=== PATIENT | male | born 1945 | race Hispanic/Latino ===

== ENCOUNTER → 2019-07-29 | Outpatient (CLI) | payer MEDICARE, OTHER ==
[~2019-07-29] MED LIST: ATORVASTATIN CA40 MG PO; DIOVAN80 MG PO; LEVOCETIRIZINE D5 MG PO; LEVOFLOXACIN250 MG PO; LOSARTAN-HCTZ1 EAC1 PO; METFORMIN HCL500 MG PO; METOPROLOL SUCC25 MG PO; METOPROLOL SUCC50 MG PO; NIFEDIPINE ER30 M1 PO; PANTOPRAZOLE SO40 MG PO; TRESIBA FL100 UNIT/1 SQ
== END ==
LOC: DX 12:02
PROVIDERS: ATTEND Internal Medicine
DX: Z01.818 Encounter for other preprocedural examination (principal); Z53.8 Procedure and treatment not carried out for other reasons

== ENCOUNTER 2019-08-03 05:00 | Inpatient (IN) | payer MEDICARE, OTHER ==
--- NOTE | 2019-07-29 14:57 | Diagnostic Imaging Report ---
EXAMINATION: CHEST 2 VIEWS INDICATION: Pre-operative COMPARISON: None FINDINGS: LINES/TUBES:None LUNGS:The lungs are well-inflated. No focal consolidation or pulmonary edema. PLEURA:No pleural effusion or pneumothorax. MEDIASTINUM:The cardiomediastinal silhouette appears normal in size and shape. BONES/SOFT TISSUES:No acute osseous injury. ABDOMEN:No free air under the diaphragm. IMPRESSION: No focal pneumonia or pulmonary edema. Signed by: King Drake MD on 07/29/2019 2:54 PM
[2019-07-29 15:00] LABS: BASOPHILS # (AUTO) 0.1 (0.0-0.1); EOSINOPHILS # (AUTO) 0.2 (0.0-0.4); EOSINOPHILS % 2.1 % (0.0-6.0); HEMATOCRIT 34.7 % (38.2-49.6); HEMOGLOBIN 10.5 g/dL (14.0-18.0); LYMPHOCYTES # (AUTO) 2.6 (1.0-3.2); LYMPHOCYTES % 33.9 % (18.0-39.1); MEAN CORPUSCULAR HEMOGLOBIN 26.7 pg (28-32); MEAN CORPUSCULAR HGB CONC 30.3 g/dL (31-35); MEAN CORPUSCULAR VOLUME 88.3 fL (81-99); MONOCYTES # (AUTO) 0.8 (0.2-0.8); NEUTROPHILS # (AUTO) 4.1 (2.1-6.9); NEUTROPHILS % 52.7 % (38.7-80.0); PLATELET COUNT 290 x10e3/uL (140-360); RED BLOOD COUNT 3.93 x10e6/uL (4.3-5.7); RED CELL DISTRIBUTION WIDTH 14.6 % (11.7-14.4)
[2019-07-29 16:08] LABS: ANION GAP 12.8 mmol/L (8-16); CREATININE, SERUM 1.88 mg/dL (0.72-1.25); POTASSIUM 4.8 mmol/L (3.5-5.1)
[~2019-08-03] VITALS: Ht 162.6 cm; Wt 82.6 kg
[~2019-08-03 05:00] MED LIST changes: -ATORVASTATIN CA40 MG PO; -LEVOCETIRIZINE D5 MG PO; -LEVOFLOXACIN250 MG PO; -LOSARTAN-HCTZ1 EAC1 PO; -METOPROLOL SUCC25 MG PO; -NIFEDIPINE ER30 M1 PO; -PANTOPRAZOLE SO40 MG PO; -TRESIBA FL100 UNIT/1 SQ
[2019-08-03] MEDS ORDERED: SODIUM CHLORIDE 0.45% 1,000 ML ONE (06:09)
[2019-08-03] MEDS ORDERED: LEVOFLOXACIN 500MG/D5W 100ML 100 ML IV ONE (06:09)
[2019-08-03] MEDS ORDERED: GENTAMICIN 120MG/NS 100ML 0 ML ONE (06:09)
[2019-08-03] MEDS ORDERED: GENTAMICIN 80MG/NS 100 ML 200 ML IV ONE (06:14)
[2019-08-03] MEDS ORDERED: IOPAMIDOL 300MG/ML 50ML INFUS..BTL IV ONE (06:30)
[2019-08-03] MEDS ORDERED: B&O 60MG R/S 60 MG SUPP PR ONE (06:30)
[2019-08-03] MEDS ORDERED: DIPHENHYDRAMINE HCL 25 MG CAP PO PRN (09:15)
[2019-08-03] MEDS ORDERED: ONDANSETRON HCL INJ 2MG/ML 2ML 2 MG/ML VIAL IV PRN (09:15)
[2019-08-03] MEDS ORDERED: ACETAMINOPHEN 1000 MG/100 ML IV PRN (09:15)
[2019-08-03] MEDS ORDERED: FENTANYL CITRATE/PF 100MCG/2 ML INJ ONE ×2 (09:20→14:28)
[2019-08-03 09:45] LABS: BASOPHILS # (AUTO) 0.1 (0.0-0.1); BASOPHILS % 1.1 % (0.0-1.0); EOSINOPHILS # (AUTO) 0.2 (0.0-0.4); EOSINOPHILS % 2.8 % (0.0-6.0); HEMATOCRIT 31.7 % (38.2-49.6); HEMOGLOBIN 9.7 g/dL (14.0-18.0); LYMPHOCYTES # (AUTO) 2.2 (1.0-3.2); LYMPHOCYTES % 34.4 % (18.0-39.1); MEAN CORPUSCULAR HEMOGLOBIN 26.9 pg (28-32); MEAN CORPUSCULAR HGB CONC 30.6 g/dL (31-35); MEAN CORPUSCULAR VOLUME 87.8 fL (81-99); MONOCYTES # (AUTO) 0.7 (0.2-0.8); MONOCYTES % 10.6 % (4.4-11.3); NEUTROPHILS # (AUTO) 3.3 (2.1-6.9); NEUTROPHILS % 50.8 % (38.7-80.0); PLATELET COUNT 273 x10e3/uL (140-360); RED BLOOD COUNT 3.61 x10e6/uL (4.3-5.7); RED CELL DISTRIBUTION WIDTH 14.8 % (11.7-14.4)
[2019-08-03 10:01] LABS: ANION GAP 9.3 mmol/L (8-16); CREATININE, SERUM 1.81 mg/dL (0.72-1.25); POTASSIUM 5.3 mmol/L (3.5-5.1)
--- NOTE | 2019-08-03 10:36 | NUR ---
RECEIVED TO RM AAOX3 NO DISTRESS NOTED, UPDATED ON POC VOICED UNDERSTANDING, DENIES PAIN AT THIS TIME, 24F 30CC HURTADO TO BSD WITH CBI INFUSING, IVF TO R HAND 20G NO SS OF INFILTRATION NOTED, ORIENTED TO RM, NO OTHER CO VOICED CALL LIGHT IN REACH WILL CONTINUE TO MONITOR
[2019-08-03] MEDS ORDERED: B&O 60MG R/S 60 MG SUPP PR PRN (10:45)
[2019-08-03] MEDS: SODIUM CHLORIDE 0.9% 1000ML 1,000 ML IV SCH ×2 (11:00→21:17)
[2019-08-03 11:13] VITALS: BP 148/72
[2019-08-03 11:37] VITALS: BP 148/72
[2019-08-03] MEDS ORDERED: DEXTROSE 50% SYRINGE 50 ML IV PRN (13:45)
[2019-08-03] MEDS ORDERED: LEVOCETIRIZINE D5 MG PO (14:20)
[2019-08-03] MEDS ORDERED: PANTOPRAZOLE SO40 MG PO (14:20)
[2019-08-03] MEDS ORDERED: TRESIBA FL100 UNIT/1 SQ (14:28)
[2019-08-03] MEDS ORDERED: MIDAZOLAM HCL 2 MG/2 ML VIAL ONE (14:28)
[2019-08-03 15:26] VITALS: BP 135/61
[2019-08-03] MEDS: ACETAMINOPHEN/CODEINE 300MG - 30MG TAB PO PRN ×2 (15:30→21:12)
[2019-08-03] MEDS: INSULIN LISPRO 100 UNIT/1 ML 3ML VIAL SQ SCH ×2 (16:30→21:16)
[2019-08-03] MEDS: DOCUSATE SODIUM 100 MG CAP PO SCH (17:06)
[2019-08-03] MEDS ORDERED: LIDOCAINE HCL 2% LOCAL INJ 5 ML SDV VIAL INJ ONE (18:32)
[2019-08-03] MEDS ORDERED: ONDANSETRON HCL INJ 2MG/ML 2ML 2 MG/ML VIAL ONE (18:32)
[2019-08-03] MEDS ORDERED: PROPOFOL IV EMULSION 10 MG/ML 20 ML VIAL ONE (18:32)
[2019-08-03] MEDS ORDERED: SEVOFLURANE INHAL SOLN 250 ML PEN BTL ONE (18:32)
[2019-08-03] MEDS ORDERED: METOCLOPRAMIDE HCL 10 MG/2ML VIAL ONE (18:32)
[2019-08-03] MEDS ORDERED: EPHEDRINE SULFATE INJ 50 MG/ML VIAL ONE (18:32)
[2019-08-03 20:00] VITALS: BP 186/69
[2019-08-03 20:59] VITALS: BP 186/69
[2019-08-03] MEDS ORDERED: VALSARTAN 80 MG TAB PO SCH (21:00)
[2019-08-03] MEDS: PHENAZOPYRIDINE HCL 100 MG TAB PO PRN (21:17)
[2019-08-04] VITALS (8 sets, daily range): BP systolic 148–175; BP diastolic 66–89
--- NOTE | 2019-08-04 00:20 | NUR ---
Younger care given.on cont. bladder irrigation.no clots noted.urine draining well.ambulates with stand by assistance.had bowel movement.bed locked and in lowest position.phone and call light within reach.instructed to call for assistance as needed.
[2019-08-04] MEDS: ACETAMINOPHEN/CODEINE 300MG - 30MG TAB PO PRN ×3 (04:38→21:20)
[2019-08-04 05:10] LABS: BASOPHILS # (AUTO) 0.1 (0.0-0.1); BASOPHILS % 0.6 % (0.0-1.0); EOSINOPHILS # (AUTO) 0.1 (0.0-0.4); EOSINOPHILS % 0.7 % (0.0-6.0); HEMATOCRIT 39.4 % (38.2-49.6); HEMOGLOBIN 12.1 g/dL (14.0-18.0); LYMPHOCYTES # (AUTO) 1.8 (1.0-3.2); LYMPHOCYTES % 15.1 % (18.0-39.1); MEAN CORPUSCULAR HEMOGLOBIN 27.3 pg (28-32); MEAN CORPUSCULAR HGB CONC 30.7 g/dL (31-35); MEAN CORPUSCULAR VOLUME 88.7 fL (81-99); MONOCYTES # (AUTO) 1.1 (0.2-0.8); MONOCYTES % 9.5 % (4.4-11.3); NEUTROPHILS # (AUTO) 8.7 (2.1-6.9); NEUTROPHILS % 73.8 % (38.7-80.0); PLATELET COUNT 334 x10e3/uL (140-360); RED BLOOD COUNT 4.44 x10e6/uL (4.3-5.7); RED CELL DISTRIBUTION WIDTH 14.7 % (11.7-14.4)
[2019-08-04 05:36] LABS: ANION GAP 9.8 mmol/L (8-16); CALCIUM 7.9 mg/dL (8.4-10.2); CREATININE, SERUM 1.33 mg/dL (0.72-1.25); POTASSIUM 4.8 mmol/L (3.5-5.1)
[2019-08-04] MEDS: SODIUM CHLORIDE 0.9% 1000ML 1,000 ML IV SCH ×2 (05:54→16:26)
[2019-08-04] MEDS ORDERED: LEVOFLOXACIN 250MG/D5W 50ML 50 ML IV SCH (06:30)
--- NOTE | 2019-08-04 06:58 | NUR ---
Bed side shift report given to oncoming Rn.stable condition.
--- NOTE | 2019-08-04 07:00 | NUR ---
bedside shift report received pt in stable condition, cbi infusing to 24f gambino to bsd with clear yellow urine noted, denies pain, updated on poc voiced understanding, call light in reach will continue to monitor
[2019-08-04] MEDS: INSULIN LISPRO 100 UNIT/1 ML 3ML VIAL SQ SCH ×4 (07:30→21:00)
[2019-08-04] MEDS: PHENAZOPYRIDINE HCL 100 MG TAB PO PRN (07:49)
[2019-08-04] MEDS: LORATADINE 10 MG TAB PO SCH (07:49)
[2019-08-04] MEDS: DOCUSATE SODIUM 100 MG CAP PO SCH ×2 (07:49→16:26)
[2019-08-04] MEDS: PANTOPRAZOLE SOD 40 MG TABEC PO SCH (07:50)
[2019-08-04] MEDS: METOPROLOL SUCCINATE 25 MG TAB XL PO SCH (07:55)
[2019-08-04] MEDS ORDERED: NON-FORMULARY MEDICATION (Levocetirizine Dihydrochloride 5 MG) PO SCH (09:00)
[2019-08-04] MEDS ORDERED: METOPROLOL SUCCINATE 50 MG TAB XL PO SCH ×2 (09:00)
[2019-08-04] MEDS: NIFEDIPINE CR 30 MG TAB PO SCH (09:54)
[2019-08-04] MEDS ORDERED: ONDANSETRON HCL 4 MG ORAL DISINTEGRATING TAB PO PRN (10:00)
--- NOTE | 2019-08-04 11:57 | History and Physical ---
PRIMARY CARE PHYSICIAN: Dr. Esteban Thayer. TELEGRAPHIC SERVICE DISPATCHER: Dr. Rocky Combs. CHIEF COMPLAINT: The patient is status post cystoscopy with TURP. HISTORY OF PRESENT ILLNESS: This is a 74 years old male with urinary retention due to enlarged prostate, also had recurrent urinary tract infection associated with urinary retention and also prostatitis. The patient is status post TURP. He is stable. He is getting continuous urinary bladder irrigation. There is gross hematuria, but much improved now. The patient is otherwise stable. PAST MEDICAL HISTORY: Diabetes type 2, on insulin and oral medication. Hypertension, dyslipidemia, reflux and seasonal allergies. PAST SURGICAL HISTORY: Status post TURP. SOCIAL HISTORY: The patient does not smoke or use alcohol. No regular drug use. ALLERGIES: TO PENICILLIN. HOME MEDICATIONS: List is reviewed. REVIEW OF SYSTEMS: As mentioned above. Some appropriate postoperative pain. PHYSICAL EXAMINATION: VITAL SIGNS: Temperature is 98, blood pressure 175/83, pulse rate is 91, respirations 18. GENERAL: The patient is in no acute distress. He is awake. HEENT: Normocephalic and atraumatic. Anicteric. NECK: Supple grossly. PULMONARY: Diminished breath sounds. CARDIOVASCULAR: Regular rate and rhythm. ABDOMEN: Soft. Younger catheter in place. EXTREMITIES: No cyanosis or edema. NEUROLOGIC: No focal deficit. LABORATORY DATA: WBC is 11.7, hemoglobin 12.1, hematocrit 39.4, and platelet is 334. Chemistry; sodium is 134, potassium 4.8, chloride 111, bicarb 18, BUN is 23, creatinine 1.3, and glucose is 91. Magnesium is 1.9. IMPRESSION: 1. Postop day #1 transurethral resection of the prostate. 2. Multiple chronic baseline problems. PLAN: Continue with postop care. Continuous urinary bladder irrigation. Blood pressure controlled. Pain control if needed. IV fluids. MD YUNG Good/MARISELA /[id number]
--- NOTE | 2019-08-04 19:03 | NUR ---
report given to oncoming rn, pt in stable condition, denies pain call light in reach will continue to monitor
--- NOTE | 2019-08-04 19:05 | NUR ---
Received the patient in report.lyeing in the bed.iv fluid running.no pain voiced.on cbi.orange colored urine draining.
[2019-08-04] MEDS: INSULIN DEGLUDEC 35 UNIT SQ SCH (21:00)
--- NOTE | 2019-08-04 22:39 | NUR ---
Younger care given.stable condition.phone and call light within reach.instructed to call for assistance as needed.
[2019-08-05] VITALS (7 sets, daily range): BP systolic 153–179; BP diastolic 45–70
[2019-08-05] MEDS: SODIUM CHLORIDE 0.9% 1000ML 1,000 ML IV SCH ×3 (00:36→13:30)
[2019-08-05] MEDS: ACETAMINOPHEN/CODEINE 300MG - 30MG TAB PO PRN ×2 (02:05→10:54)
[2019-08-05 05:04] LABS: BASOPHILS # (AUTO) 0.1 (0.0-0.1); BASOPHILS % 0.6 % (0.0-1.0); EOSINOPHILS # (AUTO) 0.2 (0.0-0.4); EOSINOPHILS % 1.7 % (0.0-6.0); HEMATOCRIT 35.1 % (38.2-49.6); HEMOGLOBIN 10.7 g/dL (14.0-18.0); LYMPHOCYTES # (AUTO) 2.1 (1.0-3.2); LYMPHOCYTES % 22.9 % (18.0-39.1); MEAN CORPUSCULAR HEMOGLOBIN 26.6 pg (28-32); MEAN CORPUSCULAR HGB CONC 30.5 g/dL (31-35); MEAN CORPUSCULAR VOLUME 87.3 fL (81-99); MONOCYTES # (AUTO) 1.2 (0.2-0.8); NEUTROPHILS # (AUTO) 5.7 (2.1-6.9); NEUTROPHILS % 61.4 % (38.7-80.0); PLATELET COUNT 263 x10e3/uL (140-360); RED BLOOD COUNT 4.02 x10e6/uL (4.3-5.7); RED CELL DISTRIBUTION WIDTH 15.1 % (11.7-14.4)
[2019-08-05 05:13] LABS: ANION GAP 7.5 mmol/L (8-16); CALCIUM 7.6 mg/dL (8.4-10.2); CREATININE, SERUM 1.47 mg/dL (0.72-1.25); POTASSIUM 4.5 mmol/L (3.5-5.1)
[2019-08-05] MEDS: HYDRALAZINE HCL 25 MG TAB PO PRN ×2 (05:40→12:16)
[2019-08-05] MEDS: LEVOFLOXACIN 500 MG TAB PO SCH (06:02)
--- NOTE | 2019-08-05 07:08 | NUR ---
Bed side shift report given to oncoming rn.stable condition.lyeing in the bed.
[2019-08-05] MEDS: INSULIN LISPRO 100 UNIT/1 ML 3ML VIAL SQ SCH ×4 (07:30→21:00)
[2019-08-05] MEDS: NIFEDIPINE CR 30 MG TAB PO SCH (08:46)
[2019-08-05] MEDS: PANTOPRAZOLE SOD 40 MG TABEC PO SCH (08:46)
[2019-08-05] MEDS: DOCUSATE SODIUM 100 MG CAP PO SCH ×2 (08:46→16:14)
[2019-08-05] MEDS: LORATADINE 10 MG TAB PO SCH (08:46)
[2019-08-05] MEDS: METOPROLOL SUCCINATE 25 MG TAB XL PO SCH (08:46)
--- NOTE | 2019-08-05 09:48 | NUR ---
Pt. expressed no spiritual or emotional concerns at this time. Livestock Breeder provided hospitality and information on how to reach oracle applications analyst, if needed. No need to follow at this time. LEE CALHOUN Livestock Breeder Spiritual Care Department O: [phone]
--- NOTE | 2019-08-05 16:08 | NUR ---
26F gambino catheter discontinued as ordered. Patient tolerated well
--- NOTE | 2019-08-05 18:30 | NUR ---
4th serial urine patient voided red/orange tinged urine (not clear), post void bladder scan done 129ml noted. O. aware. Per "Next time patient calls, call me with post void bladder scan results." Report to be given to oncoming nurse.
--- NOTE | 2019-08-05 19:10 | NUR ---
Report given to oncoming nurse of patient's status. Aware to call of post void urine bladder scan. Resting in bed. Side rails upx2, call light within reach. No s/s of acute distress noted.
--- NOTE | 2019-08-05 20:00 | NUR ---
Received change of shift report from AM nurse. Walking rounds completed.
[2019-08-05] MEDS: INSULIN DEGLUDEC 35 UNIT SQ SCH (21:00)
--- NOTE | 2019-08-05 22:30 | NUR ---
Patient voided for the 5th urine sample. Urine continue to be reddish in color and range from 30 to 60cc. S/W Dr Combs and informed him of patient urine output. Orders received and noted.
[2019-08-06] VITALS (10 sets, daily range): BP systolic 125–185; BP diastolic 57–80
--- NOTE | 2019-08-06 00:09 | NUR ---
Bladder scan shows 56cc in bladder. Per Dr Combs if urine retention greater than 200cc then place 20Fcouday gambino. Continue monitor bladder retention.
[2019-08-06] MEDS: HYDRALAZINE HCL 25 MG TAB PO PRN (00:30)
[2019-08-06] MEDS: INSULIN LISPRO 100 UNIT/1 ML 3ML VIAL SQ SCH ×4 (00:36→20:32)
--- NOTE | 2019-08-06 05:16 | NUR ---
Bladder scan = 90cc. Urine continue to be reddish in color. Continue monitor.
[2019-08-06] MEDS: LEVOFLOXACIN 500 MG TAB PO SCH (06:00)
[2019-08-06] MEDS: NIFEDIPINE CR 30 MG TAB PO SCH (08:54)
[2019-08-06] MEDS: LORATADINE 10 MG TAB PO SCH (08:54)
[2019-08-06] MEDS: PANTOPRAZOLE SOD 40 MG TABEC PO SCH (08:54)
[2019-08-06] MEDS: METOPROLOL SUCCINATE 25 MG TAB XL PO SCH (08:54)
[2019-08-06] MEDS: DOCUSATE SODIUM 100 MG CAP PO SCH ×2 (08:54→17:13)
[2019-08-06] MEDS: SODIUM CHLORIDE 0.9% 1000ML 1,000 ML IV SCH ×3 (09:33→20:30)
[2019-08-06 10:31] LABS: ANION GAP 7.1 mmol/L (8-16); CALCIUM 7.6 mg/dL (8.4-10.2); CREATININE, SERUM 1.35 mg/dL (0.72-1.25); POTASSIUM 4.1 mmol/L (3.5-5.1)
--- NOTE | 2019-08-06 19:10 | NUR ---
Patient visited in room during nursing rounds. Patient alert and oriented x3. Ambulatory in room prn. S/P Cystoscopy with retrograde Pyelogram and TURP on 08/03/19. Patient urinates using urinal. Urine dark pink-tinged in color with serial urine display at window sill. Patient on IVF (NS at 100ml/hr). Call vidal within reach. Will monitor pt closely.
[2019-08-06] MEDS: INSULIN DEGLUDEC 35 UNIT SQ SCH (20:48)
[2019-08-07] VITALS: BP 162/55
[2019-08-07 04:00] VITALS: BP 156/52
[2019-08-07] MEDS: LEVOFLOXACIN 500 MG TAB PO SCH (06:10)
[2019-08-07] MEDS: SODIUM CHLORIDE 0.9% 1000ML 1,000 ML IV SCH (06:10)
[2019-08-07 06:41] LABS: ANION GAP 9.8 mmol/L (8-16); CALCIUM 7.6 mg/dL (8.4-10.2); CREATININE, SERUM 1.18 mg/dL (0.72-1.25); POTASSIUM 3.8 mmol/L (3.5-5.1)
[2019-08-07] MEDS: INSULIN LISPRO 100 UNIT/1 ML 3ML VIAL SQ SCH (07:30)
[2019-08-07 07:54] VITALS: BP 162/72
[2019-08-07 08:00] VITALS: BP 162/72
[2019-08-07] MEDS: DOCUSATE SODIUM 100 MG CAP PO SCH (08:35)
[2019-08-07] MEDS: LORATADINE 10 MG TAB PO SCH (08:35)
[2019-08-07] MEDS: NIFEDIPINE CR 30 MG TAB PO SCH (08:35)
[2019-08-07] MEDS: PANTOPRAZOLE SOD 40 MG TABEC PO SCH (08:35)
[2019-08-07] MEDS: METOPROLOL SUCCINATE 25 MG TAB XL PO SCH (08:36)
[2019-08-07] MEDS ORDERED: LEVOFLOXACIN250 MG PO (11:06)
--- NOTE | 2019-08-07 11:33 | Discharge Summary ---
LAWN MAINTENANCE WORKER: Dr. Rocky Combs. PRIMARY CARE PHYSICIAN: Dr. Esteban Thayer. FINAL DIAGNOSES: 1. Status post transurethral resection of prostate for recurrent urinary retention, enlarged prostate, recurrent urinary tract infection, and hematuria. 2. Continuous urinary bladder irrigation postoperative care secondary to gross hematuria with blood clots. 3. Postoperative leukocytosis 12,000. SUMMARY: The patient is a 74-year-old male with enlarged prostate, recurrent urinary tract infection. The patient is status post TURP. He is doing well. Coronavirus PCR not detected prior to the procedures. The patient is comfortable. He did receive a few days of continuous urinary bladder irrigation due to gross hematuria. He is doing much better. Leukocytosis, resolved. The patient is stable, discharged home. Resume his home medication. ADA diet. Levaquin 250 mg daily for 10 days, prescription from Dr. Combs. The patient to follow up with Dr. Combs per instruction. The patient is stable. Discharged home today. MD YUNG Good/MARISELA /[id number]
[2019-08-07 11:40] VITALS: BP 168/65
--- OUTSIDE RECORDS SUMMARY | 2019-09-09 00:25 | XMS REPORT | Continuity of Care Document ---
Author Author [facility] t Organization [facility] Address [address] [place] [address] Phone Unavailable Care Team Providers Care Coagulating Operator Name Role Phone Genesis MALDONADO PCP CYNDI GARCIA Attphys Unavailable Payers Payer Name Policy Type Policy Number Effective Date Expiration Date Eddie acharya [facility] [id number] 2019 00:00:00 [facility] [id number] 2018 00:00:00 [facility] Review Covid19 [id number] [facility] Problems Condition Name Condition Details Condition Category Status Onset Date Resolution Date Last Treatment Date Treating Clinician Comments Source Problem Condition Active [facility] Allergies, Adverse Reactions, Alerts Allergy Name Allergy Type Status Severity Reaction(s) Onset Date Inacti ve Date Treating Clinician Comments Source Penicillin Allergy to substance Active Severe RASH, FEVER, FA INTING 2019-08-01 00:00:00 [facility] Penicillins DA Active U 2019-05-12 00:00:00 [facility] Penicillins DA Active U 2008-09-23 00:00:00 [facility] No Known Drug Intolerances DA Active U 2008-09-22 00:00:0 0 [facility] Social History Social Habit Start Date Stop Date Quantity Comments Source Sex Assigned At 1945 00:00:00 1945 00:00:00 Male [facility] Medications Ordered Medication Name Filled Medication Name Start Date Stop Da te Current Medication? Ordering Clinician Indication Dosage Frequency Signature (SIG) Comments Components Source Insulin Degludec (Tresiba Flextouch U-100) 100 Unit/1 Ml INSULN.PEN Insulin Degludec (Tresiba Flextouch U-100) 100 Unit/1 Ml INSULN.PEN Yes 35 Bedtime [facility] Levocetirizine Dihydrochloride Levocetirizine Dihydrochloride Yes 5 Daily [facility] Levofloxacin Levofloxacin Yes 250 Daily [facility] Metformin Hcl Metformin Hcl Yes 500 Twice A Day [facility] Metoprolol Succinate Metoprolol Succinate Yes 25 Daily [facility] Pantoprazole Sodium (Protonix) 40 Mg TABLET. Pantopr azole Sodium (Protonix) 40 Mg TABLET. Yes 40 Daily [facility] Valsartan (Diovan) 80 Mg TAB Valsartan (Diovan) 80 Mg TAB 2019-08-03 00:00:00 No 25 Bedtime [facility] Vital Signs Vital Name Observation Time Observation Value Comments Source Body Temperature 2019-08-07 11:40:00 98.2 [degF] [facility] Weight 2019-08-03 11:38:00 182.05 [lb_av] [facility] BMI (Body Mass Index) 2019-08-03 11:38:00 31.2 kg/m2 [facility] Procedures Procedure Date / Time Performed Performing Clinician [facility] e X-ray of chest, two views 2019-07-29 00:00:00 [facility] I [facility] Plan of Care Planned Activity Planned Date Details Comments Source Instructions Hematuria - Male [facility] Encounters Start Date/Time End Date/Time Encounter Type Admission Type Attendi [facility] Care Department Encounter ID Source 2019-08-03 09:04:00 2019-08-07 11:57:00 Discharged Inpatient 3 CYNDI GARCIA [facility] [id number] [facility] Results Test Description Test Time Test Comments Results Result Comments Source Capillary blood glucose measurement by glucometer (mas s/volume) 2019-08-07 10:48:00 Test Item Bedside Glucose (test code = 59814-1) 207 70-120 Meter ID: [id number]um or plasma sodium measurement (moles/volume)2019-08-07 05:10:00* Test Item Value Reference Range Interpretation Comments Sodium Level (test code = 2951-2) 138 136-145 [facility] potassium [facility] (moles/volume)2019-08-07 05:10:00* Test Item Value Reference Range Interpretation Comments Potassium Level (test code = 2823-3) 3.8 3.5-5.1 [facility] chloride measurement (moles/volume)2019-08-07 05:10:00* Test Item Value Reference Range Interpretation Comments Chloride Level (test code = 2075-0) 116 98-107 [facility] plasma carbon dioxide, total measurement (moles/volume)2019-08-07 05:10:00* Test Item Value Reference Range Interpretation Comments Carbon Dioxide Level (test code = 2028-9) 16 22-29 [facility] plasma anion [id number] 05:10:00* Test Item Value Reference Range Interpretation Comments Anion Gap (test code = 16097-7) 9.8 8-16 [facility] urea nitrogen measurement (mass/volume)2019-08-07 05:10:00* Test Item Value Reference Range Interpretation Comments Blood Urea Nitrogen (test code = 3094-0) 16 7-26 [facility] plasma creatinine measurement (mass/volume)2019-08-07 05:10:00* Test Item Value Reference Range Interpretation Comments Creatinine (test code = 2160-0) 1.18 0.72-1.25 [facility] or plasma urea nitrogen/creatinine mass [id number] 05:10:00* Test Item Value Reference Range Interpretation Comments BUN/Creatinine Ratio (test code = 3097-3) 14 6-25 [facility] CenterEstimated glomerular filtration rate (GFR) xjcnnqsaiecij9163-59-41 05:10:00* Test Item Value Reference Range Interpretation Comments Estimat Glomerular Filtration Rate (test code = 080087426) 60 >60 Ranges were taken from the National Kidney Disease Education Program and the [facility] literature.Reference ranges:60 or greater: Oduycr07-49 ( for 3 consecutive months): Chronic kidney disease 15 or less: Kidney failureVal [facility]de [facility] Medical CenterGlucose qczmnkjaaxd6115-77-26 05:10:00* Test Item Value Reference Range Interpretation Comments Glucose Level (test code = NFS2185) 91 74-118 [facility]ererum or plasma calcium measurement (mass/volume)2019-08-07 05:10:00* Test Item Value Reference Range Interpretation Comments Calcium Level (test code = 98049-0) 7.6 8.4-10.2 [facility] CenterBlood leukocytes automated count (number/volume)2019-08-05 04:40:00* Test Item Value Reference Range Interpretation Comments White Blood Count (test code = 6690-2) 9.31 4.8-10.8 [facility] CenterBlood erythrocytes automated count (number/volume)2019-08-05 04:40:00* Test Item Value Reference Range Interpretation Comments Red Blood Count (test code = 789-8) 4.02 4.3-5.7 [facility] CenterBlood hemoglobin measurement (moles/volume)2019-08-05 04:40:00* Test Item Value Reference Range Interpretation Comments Hemoglobin (test code = 72887-2) 10.7 14.0-18.0 [facility] CenterAutomated blood hematocrit (volume fraction)2019-08-05 04:40:00* Test Item Value Reference Range Interpretation Comments Hematocrit (test code = 4544-3) 35.1 38.2-49.6 [facility] CenterAutomated erythrocyte mean corpuscular [id number] 04:40:00* Test Item Value Reference Range Interpretation Comments Mean Corpuscular Volume (test code = 787-2) 87.3 81-99 [facility] CenterAutomated erythrocyte mean corpuscular hemoglobin (mass per erythrocyte)2019-08-05 04:40:00* Test Item Value Reference Range Interpretation Comments Mean Corpuscular Hemoglobin (test code = 785-6) 26.6 28-32 [facility] CenterAutomated erythrocyte mean corpuscular hemoglobin concentration measurement (mass/volume)2019-08-05 04:40:00* Test Item Value Reference Range Interpretation Comments Mean Corpuscular Hemoglobin Concent (test code = 786-4) 30.5 31-35 [facility] CenterRDW HnuUl-Hro7285-73-26 04:40:00* Test Item Value Reference Range Interpretation Comments Red Cell Distribution Width (test code = 61136-2) 15.1 11.7 -14.4 [facility] CenterAutomated blood platelet count (count/volume)2019-08-05 04:40:00* Test Item Value Reference Range Interpretation Comments Platelet Count (test code = 777-3) 263 140-360 [facility] CenterAutomated blood segmented neutrophil count as percentage of total yolznjmktb4361-96-20 04:40:00* Test Item Value Reference Range Interpretation Comments Neutrophils (%) (Auto) (test code = 54097-8) 61.4 38.7-80.0 [facility] CenterAutomated blood lymphocyte count as percentage ot total cuocbsnrmy1897-77-49 04:40:00* Test Item Value Reference Range Interpretation Comments Lymphocytes (%) (Auto) (test code = 736-9) 22.9 18.0-39.1 [facility] CenterAutomated blood monocyte count as percentage of total jpgnbjgtfu4449-64-07 04:40:00* Test Item Value Reference Range Interpretation Comments Monocytes (%) (Auto) (test code = 5905-5) 13.0 4.4-11.3 [facility] CenterAutomated blood eosinophil count as percentage of total hfdpxhmdkn2922-83-75 04:40:00* Test Item Value Reference Range Interpretation Comments Eosinophils (%) (Auto) (test code = 713-8) 1.7 0.0-6.0 [facility] CenterAutomated blood basophil count as percentage of total cueaknkgam7600-49-15 04:40:00* Test Item Value Reference Range Interpretation Comments Basophils (%) (Auto) (test code = 706-2) 0.6 0.0-1.0 [facility] CenterFluoroscopic procedure less than one hour wonrkshw4360-08-26 04:40:00* Test Item Value Reference Range Interpretation Comments IM GRANULOCYTES % (test code = IM GRANULOCYTES %) 0.4 0.0- 1.0 [facility] CenterAutomated blood neutrophil count 2019-08-05 04:40:00* Test Item Value Reference Range Interpretation Comments Neutrophils # (Auto) (test code = 751-8) 5.7 2.1-6.9 [facility] CenterBlood lymphocytes count (number/volume) 2019-08-05 04:40:00* Test Item Value Reference Range Interpretation Comments Lymphocytes # (Auto) (test code = 38345-2) 2.1 1.0-3.2 [facility] CenterBlood monocytes automated count (number/volume)2019-08-05 04:40:00* Test Item Value Reference Range Interpretation Comments Monocytes # (Auto) (test code = 742-7) 1.2 0.2-0.8 [facility] CenterAutomated blood eosinophil count 2019-08-05 04:40:00* Test Item Value Reference Range Interpretation Comments Eosinophils # (Auto) (test code = 711-2) 0.2 0.0-0.4 [facility] CenterAutomated blood basophil count (count/volume)2019-08-05 04:40:00* Test Item Value Reference Range Interpretation Comments Basophils # (Auto) (test code = 704-7) 0.1 0.0-0.1 [facility] CenterFluoroscopic procedure less than one hour vqhkhbnx2716-49-60 04:40:00* Test Item Value Reference Range Interpretation Comments Absolute Immature Granulocyte (auto (jose t code = Absolute Immature Granulocyte (auto) 0.04 0-0.1 [facility]ererum or plasma magnesium measurement (mass/volume)2019-08-03 09:42:00* Test Item Value Reference Range Interpretation Comments Magnesium Level (test code = 38817-9) 1.9 1.3-2.1 [facility]Fluoroscopic procedure less than one hour ldmvqhgf0582-30-60 15:25:00* Test Item Value Reference Range Interpretation Comments Coronavirus (PCR) (test code = Coronavirus (PCR)) NOT DETECTED NOTD ETECTED SARS-COV-2 (COVID19), HIGHRISK, RT-PCRNegative results do not preclude SARS-CoV- 2 infection and should not be used as the sole basis for patient management deci sions. Negative results must be combined with clinical observations, patient his tory, and epidemiological information. Optimum specimen types and timing for pea k viral levels during infections caused by SARS-CoV-2 have not been determined. Collection of multiple specimens ot types of specimens may be necessary to detec t virus. Improper specimen collection and handling, sequence variability under p rimers/probes, or organism present below the limit of detection may lead to fals e negative results. Positive and negative predictive values of testing are highl y dependent on prevalance. False negative test results are more likely when prev alence is high.The expected result is negative (not detected).The SARS-CoV-2 jose t is intended for the qualitative detection of nucleic acid from SARS-CoV-2 in n asopharyngeal and oropharyngeal swab samples from patients who meet COVID-19 cli nical and or epidemiological criteria. For lower respiratory tract specimens, th e assay is submitted for authoriztion by FDA under an Emergency Use Authorizatio n (EUA). Testing methodology is real time RT-PCR. If received as separate collec tion devices, nasopharygeal and oropharyngeal specimens are combined for analysi s. Additional specimens may be split to a separate accession for analysi and rep orting as this test includes a single unit of service.Test results must be corre lated with clinical presentation and evaluated in the context of other laborator y and epidemiologic data. Test performance can be affected because the epidemiol ogy and clinical spectrum of infection caused by SARS-CoV-2 is not fully known. For example, the optimum types of specimens to collect and when during the cours e of infection these specimens are most likely to contain detectable viral RNA m ay not be known.This test has not been Food and Drug Administration (FDA) cleare d or approved and has been authorized by FDA under an Emergency Use Authorizatio n (EUA). The test is only authorized for the duration of the declaration that ci rcumstances exist justifying the authorization of emergency use of in vitro diag nostic tests for detection and/or diagnosis of SARS-CoV-2 under section 564(b) o f the Act, 21 U.S.C. section 360bbb-3(b)(1), unless the authorization is termina gera or revoked sooner. [facility] are certified under the C linical Laboratory Improvement Amendments of 1988 (CLIA), 42 U.S.C. section 263a , to perform high complexity tests.Testing performed by [facility] [id number] [place], [place] [phone] Director: Mitchel Barba M.D.CLIA # [id number] [facility] 2 [id number] 14:54:00 [place] [address] Patient Name: PEDRO JEFFERY MR #: [id number] : 1945 Age/Sex: 74/M Req #: [id number] Adm Physician: Ordered by: CYNDI GARCIA MD Report #: [id number] Location: OR Room/Bed: Procedure: [id number] DX/CHEST 2 EWS Exam Date: 07/29/19 Exam Time: 1435 REPORT STATUS: Signed EXAMINATION: CHEST 2 VIEWS INDICATION: Pre-operative COMPARISON: None FINDING S: LINES/TUBES:None LUNGS:The lungs are well-inflated. No focal consol idation or pulmonary edema. PLEURA:No pleural effusion or pneumothorax. MEDIASTINUM:The cardiomediastinal silhouette appears normal in size and shape. BONES/SOFT TISSUES:No acute osseous injury. ABDOMEN:No free air under the diaphragm. IMPRESSION: No focal pneumonia or pulmonary edema. Signed by: Marilin Azul MD on 07/29/2019 2:54 PM Dictated By: MARILIN AZUL MD 53 Transcribed By: Gt JOSEPH on 07/29/194 COPY TO: CYNDI GARCIA MD [id number] 11:10:00* Test Item Value Reference Range Interpretation Comments GLUBED (test code = GLUBED) 246 mg/dL 74-106 H Performed by certified mud mixer operator at [facility] [id number] 07:52:00* Test Item Value Reference Range Interpretation Comments GLUBED (test code = GLUBED) 119 mg/dL 74-106 H Performed by certified mud mixer operator at [facility] [id number] 21:38:00* Test Item Value Reference Range Interpretation Comments GLUBED (test code = GLUBED) 225 mg/dL 74-106 H Performed by certified mud mixer operator at [facility] [id number] 20:17:00* Test Item Value Reference Range Interpretation Comments GLUBED (test code = GLUBED) 230 mg/dL 74-106 H Performed by certified mud mixer operator at [facility] [id number] 17:30:00* Test Item Value Reference Range Interpretation Comments GLUBED (test code = GLUBED) 154 mg/dL 74-106 H [facility]formed by certified mud mixer operator [facility]Notified Nurse~ [id number] 11:00:00* Test Item Value Reference Range Interpretation Comments GLUBED (test code = GLUBED) 110 mg/dL 74-106 H Performed by certified mud mixer operator at [facility] [id number] 08:39:00* Test Item Value Reference Range Interpretation Comments GLUBED (test code = GLUBED) 111 mg/dL 74-106 H Performed by certified mud mixer operator at [facility] COMPREHENSIVE METABOLIC [id number] 05:30:00* Test Item Value Reference Range Interpretation Comments SODIUM (test code = NA) 139 mmol/L 136-145 N POTASSIUM (test code = K) 4.1 mmol/L 3.5-5.1 N CHLORIDE (test code = CL) 109.0 mmol/L 98-107 H CARBON DIOXIDE (test code = CO2) 24.0 mmol/L 21-32 N ANION GAP (test code = GAP) 10.1 10-20 N GLUCOSE (test code = GLU) 130 mg/dL 74-106 H BLOOD UREA NITROGEN (test code = BUN) 16 mg/dL 7-18 N GLOMERULAR FILTRATION RATE (test code = GFR) > 60 mL/min >=60 Estimated GFR by using Modified MDRD formula.Chronic kidney disease is defined as either kidney damageor GFR <60 mL/min/1.73 m2 for >3 months. CREATININE (test code = CREAT) 1.10 mg/dL 0.7-1.3 N BUN/CREATININE RATIO (test code = BUN/CREA) 14.5 10-20 N TOTAL PROTEIN (test code = PROT) 6.2 gram/dL 6.4-8.2 L ALBUMIN (test code = ALB) 2.3 g/dL 3.4-5.0 L GLOBULIN (test code = GLOB) 3.9 gram/dL 2.7-4.2 N ALBUMIN/GLOBULIN RATIO (test code = A/G) 0.6 0.75-1.50 L CALCIUM (test code = CA) 8.3 mg/dL 8.5-10.1 L BILIRUBIN TOTAL (test code = BILT) 0.30 mg/dL 0.0-1.0 N SGOT/AST (test code = AST) 32 IUnit/L 15-37 N SGPT/ALT (test code = ALT) 47 IUnit/L 12-78 N ALKALINE PHOSPHATASE TOTAL (test code = ALKP) 76 IUnit/L 45-117 N Note change in reference range due to change in reagent. COMPREHENSIVE METABOLIC [id number] 05:21:00* Test Item Value Reference Range Interpretation Comments SODIUM (test code = NA) 139 mmol/L 136-145 N POTASSIUM (test code = K) 4.1 mmol/L 3.5-5.1 N CHLORIDE (test code = CL) 109.0 mmol/L 98-107 H CARBON DIOXIDE (test code = CO2) mmol/L 21-32 ANION GAP (test code = GAP) 10-20 GLUCOSE (test code = GLU) mg/dL 74-106 BLOOD UREA NITROGEN (test code = BUN) mg/dL 7-18 GLOMERULAR FILTRATION RATE (test code = GFR) mL/min >=60 CREATININE (test code = CREAT) mg/dL 0.7-1.3 BUN/CREATININE RATIO (test code = BUN/CREA) 10-20 TOTAL PROTEIN (test code = PROT) gram/dL 6.4-8.2 ALBUMIN (test code = ALB) g/dL 3.4-5.0 GLOBULIN (test code = GLOB) gram/dL 2.7-4.2 ALBUMIN/GLOBULIN RATIO (test code = A/G) 0.75-1.50 CALCIUM (test code = CA) mg/dL 8.5-10.1 BILIRUBIN TOTAL (test code = BILT) mg/dL 0.0-1.0 SGOT/AST (test code = AST) IUnit/L 15-37 SGPT/ALT (test code = ALT) IUnit/L 12-78 ALKALINE PHOSPHATASE TOTAL (test code = ALKP) IUnit/L 45-117 CBC W/AUTO [id number] 04:57:00* Test Item Value Reference Range Interpretation Comments WHITE BLOOD CELL (test code = WBC) 6.7 K/mm3 4.5-12.5 N RED BLOOD CELL (test code = RBC) 3.22 mill/mm3 4.0-5.8 L HEMOGLOBIN (test code = HGB) 9.1 gram/dL 13.0-17.5 L HEMATOCRIT (test code = HCT) 28.3 % 42.0-52.0 L MEAN CELL VOLUME (test code = MCV) 87.9 fL 80-98 N MEAN CELL HGB (test code = MCH) 28.3 picogram 27.0-33.0 N MEAN CELL HGB CONCETRATION (test code = MCHC) 32.2 gram/dL 33.0-36. 0 L RED CELL DISTRIBUTION WIDTH (test code = RDW) 15.9 % 11.6-16. 2 N RED CELL DISTRIBUTION WIDTH SD (test code = RDW-SD) 49.9 fL 37 .0-51.0 N PLATELET COUNT (test code = PLT) 340 K/mm3 150-450 N MEAN PLATELET VOLUME (test code = MPV) 9.5 fL 6.7-11.0 N NEUTROPHIL % (test code = NT%) 65.8 % 39.0-69.0 N IMMATURE GRANULOCYTE % (test code = IG%) 0.3 % 0.0-5.0 N LYMPHOCYTE % (test code = LY%) 20.2 % 25.0-55.0 L MONOCYTE % (test code = MO%) 11.0 % 0.0-10.0 H EOSINOPHIL % (test code = EO%) 1.8 % 0.0-5.0 N BASOPHIL % (test code = BA%) 0.9 % 0.0-1.0 N NUCLEATED RBC % (test code = NRBC%) 0.0 % 0-0 N NEUTROPHIL # (test code = NT#) 4.44 K/mm3 1.8-7.7 N IMMATURE GRANULOCYTE # (test code = IG#) 0.02 x10 3/uL 0-0.03 N LYMPHOCYTE # (test code = LY#) 1.36 K/mm3 1.0-5.0 N MONOCYTE # (test code = MO#) 0.74 K/mm3 0-0.8 N EOSINOPHIL # (test code = EO#) 0.12 K/mm3 0.0-0.5 N BASOPHIL # (test code = BA#) 0.06 K/mm3 0.0-0.2 N NUCLEATED RBC # (test code = NRBC#) 0.00 K/mm3 0.0-0.1 N MANUAL DIFF REQUIRED (test code = MDIFF) NO [id number] 19:59:00* Test Item Value Reference Range Interpretation Comments GLUBED (test code = GLUBED) 230 mg/dL 74-106 H Performed by certified mud mixer operator at [facility] [id number] 16:50:00* Test Item Value Reference Range Interpretation Comments GLUBED (test code = GLUBED) 145 mg/dL 74-106 H Performed by certified mud mixer operator at [facility] [id number] 12:20:00* Test Item Value Reference Range Interpretation Comments GLUBED (test code = GLUBED) 193 mg/dL 74-106 H Performed by certified mud mixer operator at [facility] [id number] 08:12:00* Test Item Value Reference Range Interpretation Comments GLUBED (test code = GLUBED) 132 mg/dL 74-106 H Performed by certified mud mixer operator at [facility] COMPREHENSIVE METABOLIC [id number] 06:00:00* Test Item Value Reference Range Interpretation Comments SODIUM (test code = NA) 139 mmol/L 136-145 N POTASSIUM (test code = K) 4.2 mmol/L 3.5-5.1 N CHLORIDE (test code = CL) 108.0 mmol/L 98-107 H CARBON DIOXIDE (test code = CO2) 24.0 mmol/L 21-32 N ANION GAP (test code = GAP) 11.2 10-20 N GLUCOSE (test code = GLU) 190 mg/dL 74-106 H BLOOD UREA NITROGEN (test code = BUN) 16 mg/dL 7-18 N GLOMERULAR FILTRATION RATE (test code = GFR) 59 mL/min >=60 Estimated GFR by using Modified MDRD formula.Chronic kidney disease is defined as either kidney damageor GFR <60 mL/min/1.73 m2 for >3 months. CREATININE (test code = CREAT) 1.20 mg/dL 0.7-1.3 N BUN/CREATININE RATIO (test code = BUN/CREA) 13.3 10-20 N TOTAL PROTEIN (test code = PROT) 6.3 gram/dL 6.4-8.2 L ALBUMIN (test code = ALB) 2.2 g/dL 3.4-5.0 L GLOBULIN (test code = GLOB) 4.1 gram/dL 2.7-4.2 N ALBUMIN/GLOBULIN RATIO (test code = A/G) 0.5 0.75-1.50 L CALCIUM (test code = CA) 8.0 mg/dL 8.5-10.1 L BILIRUBIN TOTAL (test code = BILT) 0.20 mg/dL 0.0-1.0 N SGOT/AST (test code = AST) 24 IUnit/L 15-37 N SGPT/ALT (test code = ALT) 43 IUnit/L 12-78 N ALKALINE PHOSPHATASE TOTAL (test code = ALKP) 84 IUnit/L 45-117 N Note change in reference range due to change in reagent. [id number] 06:00:00* Test Item Value Reference Range Interpretation Comments LIPASE (test code = LIP) 565 U/L 73.0-393.0 H COMPREHENSIVE METABOLIC [id number] 05:50:00* Test Item Value Reference Range Interpretation Comments SODIUM (test code = NA) 139 mmol/L 136-145 N POTASSIUM (test code = K) 4.2 mmol/L 3.5-5.1 N CHLORIDE (test code = CL) 108.0 mmol/L 98-107 H CARBON DIOXIDE (test code = CO2) mmol/L 21-32 ANION GAP (test code = GAP) 10-20 GLUCOSE (test code = GLU) mg/dL 74-106 BLOOD UREA NITROGEN (test code = BUN) mg/dL 7-18 GLOMERULAR FILTRATION RATE (test code = GFR) mL/min >=60 CREATININE (test code = CREAT) mg/dL 0.7-1.3 BUN/CREATININE RATIO (test code = BUN/CREA) 10-20 TOTAL PROTEIN (test code = PROT) gram/dL 6.4-8.2 ALBUMIN (test code = ALB) g/dL 3.4-5.0 GLOBULIN (test code = GLOB) gram/dL 2.7-4.2 ALBUMIN/GLOBULIN RATIO (test code = A/G) 0.75-1.50 CALCIUM (test code = CA) mg/dL 8.5-10.1 BILIRUBIN TOTAL (test code = BILT) mg/dL 0.0-1.0 SGOT/AST (test code = AST) IUnit/L 15-37 SGPT/ALT (test code = ALT) IUnit/L 12-78 ALKALINE PHOSPHATASE TOTAL (test code = ALKP) IUnit/L 45-117 [id number] 05:50:00* Test Item Value Reference Range Interpretation Comments LIPASE (test code = LIP) U/L 73.0-393.0 CBC W/AUTO [id number] 05:31:00* Test Item Value Reference Range Interpretation Comments WHITE BLOOD CELL (test code = WBC) 5.6 K/mm3 4.5-12.5 N RED BLOOD CELL (test code = RBC) 3.15 mill/mm3 4.0-5.8 L HEMOGLOBIN (test code = HGB) 8.9 gram/dL 13.0-17.5 L HEMATOCRIT (test code = HCT) 28.1 % 42.0-52.0 L MEAN CELL VOLUME (test code = MCV) 89.2 fL 80-98 N MEAN CELL HGB (test code = MCH) 28.3 picogram 27.0-33.0 N MEAN CELL HGB CONCETRATION (test code = MCHC) 31.7 gram/dL 33.0-36. 0 L RED CELL DISTRIBUTION WIDTH (test code = RDW) 16.3 % 11.6-16. 2 H RED CELL DISTRIBUTION WIDTH SD (test code = RDW-SD) 52.4 fL 37 .0-51.0 H PLATELET COUNT (test code = PLT) 291 K/mm3 150-450 N MEAN PLATELET VOLUME (test code = MPV) 9.8 fL 6.7-11.0 N NEUTROPHIL % (test code = NT%) 55.0 % 39.0-69.0 N IMMATURE GRANULOCYTE % (test code = IG%) 0.4 % 0.0-5.0 N LYMPHOCYTE % (test code = LY%) 25.9 % 25.0-55.0 N MONOCYTE % (test code = MO%) 15.3 % 0.0-10.0 H EOSINOPHIL % (test code = EO%) 2.3 % 0.0-5.0 N BASOPHIL % (test code = BA%) 1.1 % 0.0-1.0 H NUCLEATED RBC % (test code = NRBC%) 0.0 % 0-0 N NEUTROPHIL # (test code = NT#) 3.07 K/mm3 1.8-7.7 N IMMATURE GRANULOCYTE # (test code = IG#) 0.02 x10 3/uL 0-0.03 N LYMPHOCYTE # (test code = LY#) 1.44 K/mm3 1.0-5.0 N MONOCYTE # (test code = MO#) 0.85 K/mm3 0-0.8 H EOSINOPHIL # (test code = EO#) 0.13 K/mm3 0.0-0.5 N BASOPHIL # (test code = BA#) 0.06 K/mm3 0.0-0.2 N NUCLEATED RBC # (test code = NRBC#) 0.00 K/mm3 0.0-0.1 N MANUAL DIFF REQUIRED (test code = MDIFF) NO [id number] 20:18:00* Test Item Value Reference Range Interpretation Comments GLUBED (test code = GLUBED) 119 mg/dL 74-106 H Performed by certified mud mixer operator at [facility] [id number] 17:21:00* Test Item Value Reference Range Interpretation Comments GLUBED (test code = GLUBED) 233 mg/dL 74-106 H Performed by certified mud mixer operator at [facility] [id number] 12:23:00* Test Item Value Reference Range Interpretation Comments GLUBED (test code = GLUBED) 93 mg/dL 74-106 N Performed by certified mud mixer operator at [facility] [id number] 08:38:00* Test Item Value Reference Range Interpretation Comments GLUBED (test code = GLUBED) 212 mg/dL 74-106 H Performed by certified mud mixer operator at [facility] [id number] 20:13:00* Test Item Value Reference Range Interpretation Comments GLUBED (test code = GLUBED) 129 mg/dL 74-106 H Performed by certified mud mixer operator at [facility] [id number] 16:02:00* Test Item Value Reference Range Interpretation Comments GLUBED (test code = GLUBED) 100 mg/dL 74-106 N Performed by certified mud mixer operator at [facility] [id number] 11:28:00* Test Item Value Reference Range Interpretation Comments GLUBED (test code = GLUBED) 275 mg/dL 74-106 H Performed by certified mud mixer operator at [facility] [id number] 08:00:00* Test Item Value Reference Range Interpretation Comments GLUBED (test code = GLUBED) 121 mg/dL 74-106 H Performed by certified mud mixer operator at [facility] COMPREHENSIVE METABOLIC [id number] 05:08:00* Test Item Value Reference Range Interpretation Comments SODIUM (test code = NA) 140 mmol/L 136-145 N POTASSIUM (test code = K) 3.9 mmol/L 3.5-5.1 N CHLORIDE (test code = CL) 111.0 mmol/L 98-107 H CARBON DIOXIDE (test code = CO2) 22.0 mmol/L 21-32 N ANION GAP (test code = GAP) 10.9 10-20 N GLUCOSE (test code = GLU) 133 mg/dL 74-106 H BLOOD UREA NITROGEN (test code = BUN) 13 mg/dL 7-18 N GLOMERULAR FILTRATION RATE (test code = GFR) > 60 mL/min >=60 Estimated GFR by using Modified MDRD formula.Chronic kidney disease is defined as either kidney damageor GFR <60 mL/min/1.73 m2 for >3 months. CREATININE (test code = CREAT) 1.10 mg/dL 0.7-1.3 N BUN/CREATININE RATIO (test code = BUN/CREA) 11.8 10-20 N TOTAL PROTEIN (test code = PROT) 6.2 gram/dL 6.4-8.2 L ALBUMIN (test code = ALB) 2.2 g/dL 3.4-5.0 L GLOBULIN (test code = GLOB) 4.0 gram/dL 2.7-4.2 N ALBUMIN/GLOBULIN RATIO (test code = A/G) 0.6 0.75-1.50 L CALCIUM (test code = CA) 7.7 mg/dL 8.5-10.1 L BILIRUBIN TOTAL (test code = BILT) 0.40 mg/dL 0.0-1.0 N SGOT/AST (test code = AST) 28 IUnit/L 15-37 N SGPT/ALT (test code = ALT) 45 IUnit/L 12-78 N ALKALINE PHOSPHATASE TOTAL (test code = ALKP) 88 IUnit/L 45-117 N Note change in reference range due to change in reagent. COMPREHENSIVE METABOLIC [id number] 05:03:00* Test Item Value Reference Range Interpretation Comments SODIUM (test code = NA) 140 mmol/L 136-145 N POTASSIUM (test code = K) 3.9 mmol/L 3.5-5.1 N CHLORIDE (test code = CL) 111.0 mmol/L 98-107 H CARBON DIOXIDE (test code = CO2) mmol/L 21-32 ANION GAP (test code = GAP) 10-20 GLUCOSE (test code = GLU) mg/dL 74-106 BLOOD UREA NITROGEN (test code = BUN) mg/dL 7-18 GLOMERULAR FILTRATION RATE (test code = GFR) mL/min >=60 CREATININE (test code = CREAT) mg/dL 0.7-1.3 BUN/CREATININE RATIO (test code = BUN/CREA) 10-20 TOTAL PROTEIN (test code = PROT) gram/dL 6.4-8.2 ALBUMIN (test code = ALB) g/dL 3.4-5.0 GLOBULIN (test code = GLOB) gram/dL 2.7-4.2 ALBUMIN/GLOBULIN RATIO (test code = A/G) 0.75-1.50 CALCIUM (test code = CA) mg/dL 8.5-10.1 BILIRUBIN TOTAL (test code = BILT) mg/dL 0.0-1.0 SGOT/AST (test code = AST) IUnit/L 15-37 SGPT/ALT (test code = ALT) IUnit/L 12-78 ALKALINE PHOSPHATASE TOTAL (test code = ALKP) IUnit/L 45-117 CBC W/AUTO [id number] 04:40:00* Test Item Value Reference Range Interpretation Comments WHITE BLOOD CELL (test code = WBC) 5.6 K/mm3 4.5-12.5 N RED BLOOD CELL (test code = RBC) 3.23 mill/mm3 4.0-5.8 L HEMOGLOBIN (test code = HGB) 9.3 gram/dL 13.0-17.5 L HEMATOCRIT (test code = HCT) 28.9 % 42.0-52.0 L MEAN CELL VOLUME (test code = MCV) 89.5 fL 80-98 N MEAN CELL HGB (test code = MCH) 28.8 picogram 27.0-33.0 N MEAN CELL HGB CONCETRATION (test code = MCHC) 32.2 gram/dL 33.0-36. 0 L RED CELL DISTRIBUTION WIDTH (test code = RDW) 16.6 % 11.6-16. 2 H RED CELL DISTRIBUTION WIDTH SD (test code = RDW-SD) 53.2 fL 37 .0-51.0 H PLATELET COUNT (test code = PLT) 233 K/mm3 150-450 N MEAN PLATELET VOLUME (test code = MPV) 9.3 fL 6.7-11.0 N NEUTROPHIL % (test code = NT%) 57.3 % 39.0-69.0 N IMMATURE GRANULOCYTE % (test code = IG%) 0.4 % 0.0-5.0 N LYMPHOCYTE % (test code = LY%) 20.9 % 25.0-55.0 L MONOCYTE % (test code = MO%) 18.9 % 0.0-10.0 H EOSINOPHIL % (test code = EO%) 1.8 % 0.0-5.0 N BASOPHIL % (test code = BA%) 0.7 % 0.0-1.0 N NUCLEATED RBC % (test code = NRBC%) 0.0 % 0-0 N NEUTROPHIL # (test code = NT#) 3.19 K/mm3 1.8-7.7 N IMMATURE GRANULOCYTE # (test code = IG#) 0.02 x10 3/uL 0-0.03 N LYMPHOCYTE # (test code = LY#) 1.16 K/mm3 1.0-5.0 N MONOCYTE # (test code = MO#) 1.05 K/mm3 0-0.8 H EOSINOPHIL # (test code = EO#) 0.10 K/mm3 0.0-0.5 N BASOPHIL # (test code = BA#) 0.04 K/mm3 0.0-0.2 N NUCLEATED RBC # (test code = NRBC#) 0.00 K/mm3 0.0-0.1 N MANUAL DIFF REQUIRED (test code = MDIFF) NO [id number] 20:56:00* Test Item Value Reference Range Interpretation Comments GLUBED (test code = GLUBED) 175 mg/dL 74-106 H Performed by certified mud mixer operator at [facility] [id number] 16:50:00* Test Item Value Reference Range Interpretation Comments GLUBED (test code = GLUBED) 188 mg/dL 74-106 H Performed by certified mud mixer operator at [facility] [id number] 11:09:00* Test Item Value Reference Range Interpretation Comments GLUBED (test code = GLUBED) 166 mg/dL 74-106 H Performed by certified mud mixer operator at [facility] [id number] 08:38:00* Test Item Value Reference Range Interpretation Comments GLUBED (test code = GLUBED) 81 mg/dL 74-106 N Performed by certified mud mixer operator at [facility] COMPREHENSIVE METABOLIC [id number] 05:32:00* Test Item Value Reference Range Interpretation Comments SODIUM (test code = NA) 142 mmol/L 136-145 N POTASSIUM (test code = K) 3.8 mmol/L 3.5-5.1 N CHLORIDE (test code = CL) 113.0 mmol/L 98-107 H CARBON DIOXIDE (test code = CO2) 21.0 mmol/L 21-32 N ANION GAP (test code = GAP) 11.8 10-20 N GLUCOSE (test code = GLU) 96 mg/dL 74-106 N BLOOD UREA NITROGEN (test code = BUN) 17 mg/dL 7-18 GLOMERULAR FILTRATION RATE (test code = GFR) 59 mL/min >=60 Estimated GFR by using Modified MDRD formula.Chronic kidney disease is defined as either kidney damageor GFR <60 mL/min/1.73 m2 for >3 months. CREATININE (test code = CREAT) 1.20 mg/dL 0.7-1.3 N BUN/CREATININE RATIO (test code = BUN/CREA) 14.2 10-20 N TOTAL PROTEIN (test code = PROT) 6.1 gram/dL 6.4-8.2 L ALBUMIN (test code = ALB) 2.2 g/dL 3.4-5.0 L GLOBULIN (test code = GLOB) 3.9 gram/dL 2.7-4.2 N ALBUMIN/GLOBULIN RATIO (test code = A/G) 0.6 0.75-1.50 L CALCIUM (test code = CA) 7.8 mg/dL 8.5-10.1 L BILIRUBIN TOTAL (test code = BILT) 0.40 mg/dL 0.0-1.0 N SGOT/AST (test code = AST) 31 IUnit/L 15-37 N SGPT/ALT (test code = ALT) 51 IUnit/L 12-78 N ALKALINE PHOSPHATASE TOTAL (test code = ALKP) 94 IUnit/L 45-117 N Note change in reference range due to change in reagent. LIPID PROFILE (CORONARY RISK)2019-05-14 05:32:00* Test Item Value Reference Range Interpretation Comments TRIGLYCERIDES (test code = TRIG) 79 mg/dL 20-150 N CHOLESTEROL (test code = CHOL) 146 mg/dL 0-200 N CHOLESTEROL/HDL RATIO (test code = CHOLHDL) 2.0 RATIO 0-4.9 N RISK ASSOCIATED WITH CHOL/HDL RATIOS: Risk Male Female1/2 AVERAGE 3.43 3.27AVERAGE 4.97 4.442X AVERAGE 9.55 7.053X AVERAGE 23.39 11.04 REFERENCE VALUE IS RELATED TO RISK LEVELS ASRECOMMENDED BY THE ANA MARIA. HEART, LUNG, AND BLOOD INST. HDL CHOLESTEROL (test code = HDL) 72 mg/dL 40-60 H LIPOPROTEIN LDL (test code = LDL) 61 mg/dL 100-129 L Reference Interval: mg/dL mmol/L Optimal <100 <2.6Near/above optimal 100-129 2.6- 3.3Borderline High 130-159 3.4-4.1High 160-189 4.1-4.9Very High >=190 >=4.9========= This LDL result is a direct measurement.========= [id number] 05:32:00* Test Item Value Reference Range Interpretation Comments LIPASE (test code = LIP) 856 U/L 73.0-393.0 H [id number] 05:12:00* Test Item Value Reference Range Interpretation Comments GLYCOSYLATED HEMOGLOBIN (HA1C) (test code = GLYHGB) 8.0 % HbA1 SUGGESTED DIAGNOSIS: HbA1C (%) Diabetic >6.4Prediabetes 5.7 - 6.4Normal <5.7 ESTIMATED AVERAGE GLUCOSE (test code = EAG) 183 MG/DL COMPREHENSIVE METABOLIC [id number] 05:02:00* Test Item Value Reference Range Interpretation Comments SODIUM (test code = NA) 142 mmol/L 136-145 N POTASSIUM (test code = K) 3.8 mmol/L 3.5-5.1 N CHLORIDE (test code = CL) 113.0 mmol/L 98-107 H CARBON DIOXIDE (test code = CO2) mmol/L 21-32 ANION GAP (test code = GAP) 10-20 GLUCOSE (test code = GLU) mg/dL 74-106 BLOOD UREA NITROGEN (test code = BUN) mg/dL 7-18 GLOMERULAR FILTRATION RATE (test code = GFR) mL/min >=60 CREATININE (test code = CREAT) mg/dL 0.7-1.3 BUN/CREATININE RATIO (test code = BUN/CREA) 10-20 TOTAL PROTEIN (test code = PROT) gram/dL 6.4-8.2 ALBUMIN (test code = ALB) g/dL 3.4-5.0 GLOBULIN (test code = GLOB) gram/dL 2.7-4.2 ALBUMIN/GLOBULIN RATIO (test code = A/G) 0.75-1.50 CALCIUM (test code = CA) mg/dL 8.5-10.1 BILIRUBIN TOTAL (test code = BILT) mg/dL 0.0-1.0 SGOT/AST (test code = AST) IUnit/L 15-37 SGPT/ALT (test code = ALT) IUnit/L 12-78 ALKALINE PHOSPHATASE TOTAL (test code = ALKP) IUnit/L 45-117 LIPID PROFILE (CORONARY RISK)2019-05-14 05:02:00* Test Item Value Reference Range Interpretation Comments TRIGLYCERIDES (test code = TRIG) mg/dL 20-150 CHOLESTEROL (test code = CHOL) mg/dL 0-200 CHOLESTEROL/HDL RATIO (test code = CHOLHDL) RATIO 0-4.9 HDL CHOLESTEROL (test code = HDL) mg/dL 40-60 LIPOPROTEIN LDL (test code = LDL) mg/dL 100-129 [id number] 05:02:00* Test Item Value Reference Range Interpretation Comments LIPASE (test code = LIP) U/L 73.0-393.0 CBC W/AUTO [id number] 04:49:00* Test Item Value Reference Range Interpretation Comments WHITE BLOOD CELL (test code = WBC) 6.4 K/mm3 4.5-12.5 N RED BLOOD CELL (test code = RBC) 3.31 mill/mm3 4.0-5.8 L HEMOGLOBIN (test code = HGB) 9.4 gram/dL 13.0-17.5 L HEMATOCRIT (test code = HCT) 29.1 % 42.0-52.0 L MEAN CELL VOLUME (test code = MCV) 87.9 fL 80-98 N MEAN CELL HGB (test code = MCH) 28.4 picogram 27.0-33.0 N MEAN CELL HGB CONCETRATION (test code = MCHC) 32.3 gram/dL 33.0-36. 0 L RED CELL DISTRIBUTION WIDTH (test code = RDW) 17.1 % 11.6-16. 2 H RED CELL DISTRIBUTION WIDTH SD (test code = RDW-SD) 53.0 fL 37 .0-51.0 H PLATELET COUNT (test code = PLT) 209 K/mm3 150-450 N MEAN PLATELET VOLUME (test code = MPV) 9.3 fL 6.7-11.0 N NEUTROPHIL % (test code = NT%) 56.4 % 39.0-69.0 N IMMATURE GRANULOCYTE % (test code = IG%) 0.3 % 0.0-5.0 N LYMPHOCYTE % (test code = LY%) 20.5 % 25.0-55.0 L MONOCYTE % (test code = MO%) 21.4 % 0.0-10.0 H EOSINOPHIL % (test code = EO%) 0.9 % 0.0-5.0 N BASOPHIL % (test code = BA%) 0.5 % 0.0-1.0 N NUCLEATED RBC % (test code = NRBC%) 0.0 % 0-0 N NEUTROPHIL # (test code = NT#) 3.58 K/mm3 1.8-7.7 N IMMATURE GRANULOCYTE # (test code = IG#) 0.02 x10 3/uL 0-0.03 N LYMPHOCYTE # (test code = LY#) 1.30 K/mm3 1.0-5.0 N MONOCYTE # (test code = MO#) 1.36 K/mm3 0-0.8 H EOSINOPHIL # (test code = EO#) 0.06 K/mm3 0.0-0.5 N BASOPHIL # (test code = BA#) 0.03 K/mm3 0.0-0.2 N NUCLEATED RBC # (test code = NRBC#) 0.00 K/mm3 0.0-0.1 N [id number] 20:15:00* Test Item Value Reference Range Interpretation Comments GLUBED (test code = GLUBED) 140 mg/dL 74-106 H Performed by certified mud mixer operator at [facility] [id number] 16:21:00* Test Item Value Reference Range Interpretation Comments GLUBED (test code = GLUBED) 105 mg/dL 74-106 N Performed by certified mud mixer operator at [facility] [id number] 12:18:00* Test Item Value Reference Range Interpretation Comments GLUBED (test code = GLUBED) 214 mg/dL 74-106 H Performed by certified mud mixer operator at [facility] [id number] 08:29:00* Test Item Value Reference Range Interpretation Comments GLUBED (test code = GLUBED) 85 mg/dL 74-106 N Performed by certified mud mixer operator at [facility] CBC W/AUTO [id number] 06:36:00* Test Item Value Reference Range Interpretation Comments WHITE BLOOD CELL (test code = WBC) 8.4 K/mm3 4.5-12.5 N RED BLOOD CELL (test code = RBC) 3.98 mill/mm3 4.0-5.8 L HEMOGLOBIN (test code = HGB) 11.2 gram/dL 13.0-17.5 L HEMATOCRIT (test code = HCT) 34.9 % 42.0-52.0 L MEAN CELL VOLUME (test code = MCV) 87.7 fL 80-98 N MEAN CELL HGB (test code = MCH) 28.1 picogram 27.0-33.0 N MEAN CELL HGB CONCETRATION (test code = MCHC) 32.1 gram/dL 33.0-36. 0 L RED CELL DISTRIBUTION WIDTH (test code = RDW) 16.8 % 11.6-16. 2 H RED CELL DISTRIBUTION WIDTH SD (test code = RDW-SD) 52.1 fL 37 .0-51.0 H PLATELET COUNT (test code = PLT) 212 K/mm3 150-450 N MEAN PLATELET VOLUME (test code = MPV) 9.9 fL 6.7-11.0 N NEUTROPHIL % (test code = NT%) 71.0 % 39.0-69.0 H IMMATURE GRANULOCYTE % (test code = IG%) 0.4 % 0.0-5.0 N LYMPHOCYTE % (test code = LY%) 9.8 % 25.0-55.0 L MONOCYTE % (test code = MO%) 18.1 % 0.0-10.0 H EOSINOPHIL % (test code = EO%) 0.5 % 0.0-5.0 N BASOPHIL % (test code = BA%) 0.2 % 0.0-1.0 N NUCLEATED RBC % (test code = NRBC%) 0.0 % 0-0 N NEUTROPHIL # (test code = NT#) 5.98 K/mm3 1.8-7.7 N IMMATURE GRANULOCYTE # (test code = IG#) 0.03 x10 3/uL 0-0.03 N LYMPHOCYTE # (test code = LY#) 0.82 K/mm3 1.0-5.0 L MONOCYTE # (test code = MO#) 1.52 K/mm3 0-0.8 H EOSINOPHIL # (test code = EO#) 0.04 K/mm3 0.0-0.5 N BASOPHIL # (test code = BA#) 0.02 K/mm3 0.0-0.2 N NUCLEATED RBC # (test code = NRBC#) 0.00 K/mm3 0.0-0.1 N MANUAL DIFF REQUIRED (test code = MDIFF) NO, ONLY SCAN NEEDED DIFFERENTIAL [id number] 06:36:00* Test Item Value Reference Range Interpretation Comments STAIN ACCEPTABILITY (test code = STN ACCEPTABLE) STAIN ACCEPTABLE MORPHOLOGY COMMENT (test code = MOC) NORMAL PLATELET ESTIMATE (test code = PLTEST) ADEQUATE PLATELET MORPHOLOGY (test code = PLTMORPH) NORMAL COMPREHENSIVE METABOLIC [id number] 06:17:00* Test Item Value Reference Range Interpretation Comments SODIUM (test code = NA) 140 mmol/L 136-145 POTASSIUM (test code = K) 4.2 mmol/L 3.5-5.1 N CHLORIDE (test code = CL) 111.0 mmol/L 98-107 H CARBON DIOXIDE (test code = CO2) 15.0 mmol/L 21-32 L ANION GAP (test code = GAP) 18.2 10-20 N GLUCOSE (test code = GLU) 121 mg/dL 74-106 H BLOOD UREA NITROGEN (test code = BUN) 30 mg/dL 7-18 H GLOMERULAR FILTRATION RATE (test code = GFR) 49 mL/min >=60 Estimated GFR by using Modified MDRD formula.Chronic kidney disease is defined as either kidney damageor GFR <60 mL/min/1.73 m2 for >3 months. CREATININE (test code = CREAT) 1.40 mg/dL 0.7-1.3 H BUN/CREATININE RATIO (test code = BUN/CREA) 21.4 10-20 H TOTAL PROTEIN (test code = PROT) 6.7 gram/dL 6.4-8.2 N ALBUMIN (test code = ALB) 1.8 g/dL 3.4-5.0 L GLOBULIN (test code = GLOB) 4.9 gram/dL 2.7-4.2 H ALBUMIN/GLOBULIN RATIO (test code = A/G) 0.4 0.75-1.50 L CALCIUM (test code = CA) 8.0 mg/dL 8.5-10.1 L BILIRUBIN TOTAL (test code = BILT) 0.60 mg/dL 0.0-1.0 N SGOT/AST (test code = AST) 57 IUnit/L 15-37 H SGPT/ALT (test code = ALT) 66 IUnit/L 12-78 N ALKALINE PHOSPHATASE TOTAL (test code = ALKP) 100 IUnit/L 45-117 N Note change in reference range due to change in reagent. [id number] 06:17:00* Test Item Value Reference Range Interpretation Comments LIPASE (test code = LIP) 1148 U/L 73.0-393.0 H CBC W/AUTO [id number] 05:48:00* Test Item Value Reference Range Interpretation Comments WHITE BLOOD CELL (test code = WBC) 8.4 K/mm3 4.5-12.5 N RED BLOOD CELL (test code = RBC) 3.98 mill/mm3 4.0-5.8 L HEMOGLOBIN (test code = HGB) 11.2 gram/dL 13.0-17.5 L HEMATOCRIT (test code = HCT) 34.9 % 42.0-52.0 L MEAN CELL VOLUME (test code = MCV) 87.7 fL 80-98 N MEAN CELL HGB (test code = MCH) 28.1 picogram 27.0-33.0 N MEAN CELL HGB CONCETRATION (test code = MCHC) 32.1 gram/dL 33.0-36. 0 L RED CELL DISTRIBUTION WIDTH (test code = RDW) 16.8 % 11.6-16. 2 H RED CELL DISTRIBUTION WIDTH SD (test code = RDW-SD) 52.1 fL 37 .0-51.0 H PLATELET COUNT (test code = PLT) 212 K/mm3 150-450 N MEAN PLATELET VOLUME (test code = MPV) 9.9 fL 6.7-11.0 N NEUTROPHIL % (test code = NT%) 71.0 % 39.0-69.0 H IMMATURE GRANULOCYTE % (test code = IG%) 0.4 % 0.0-5.0 N LYMPHOCYTE % (test code = LY%) 9.8 % 25.0-55.0 L MONOCYTE % (test code = MO%) 18.1 % 0.0-10.0 H EOSINOPHIL % (test code = EO%) 0.5 % 0.0-5.0 N BASOPHIL % (test code = BA%) 0.2 % 0.0-1.0 N NUCLEATED RBC % (test code = NRBC%) 0.0 % 0-0 N NEUTROPHIL # (test code = NT#) 5.98 K/mm3 1.8-7.7 N IMMATURE GRANULOCYTE # (test code = IG#) 0.03 x10 3/uL 0-0.03 N LYMPHOCYTE # (test code = LY#) 0.82 K/mm3 1.0-5.0 L MONOCYTE # (test code = MO#) 1.52 K/mm3 0-0.8 H EOSINOPHIL # (test code = EO#) 0.04 K/mm3 0.0-0.5 N BASOPHIL # (test code = BA#) 0.02 K/mm3 0.0-0.2 N NUCLEATED RBC # (test code = NRBC#) 0.00 K/mm3 0.0-0.1 N MANUAL DIFF REQUIRED (test code = MDIFF) NO, ONLY SCAN NEEDED DIFFERENTIAL [id number] 05:48:00* Test Item Value Reference Range Interpretation Comments STAIN ACCEPTABILITY (test code = STN ACCEPTABLE) CABOT RINGS (test code = CAB) MORPHOLOGY COMMENT (test code = MOC) PLATELET ESTIMATE (test code = PLTEST) PLATELET MORPHOLOGY (test code = PLTMORPH) CBC W/AUTO [id number] 05:48:00* Test Item Value Reference Range Interpretation Comments WHITE BLOOD CELL (test code = WBC) 8.4 K/mm3 4.5-12.5 N RED BLOOD CELL (test code = RBC) 3.98 mill/mm3 4.0-5.8 L HEMOGLOBIN (test code = HGB) 11.2 gram/dL 13.0-17.5 L HEMATOCRIT (test code = HCT) 34.9 % 42.0-52.0 L MEAN CELL VOLUME (test code = MCV) 87.7 fL 80-98 N MEAN CELL HGB (test code = MCH) 28.1 picogram 27.0-33.0 N MEAN CELL HGB CONCETRATION (test code = MCHC) 32.1 gram/dL 33.0-36. 0 L RED CELL DISTRIBUTION WIDTH (test code = RDW) 16.8 % 11.6-16. 2 H RED CELL DISTRIBUTION WIDTH SD (test code = RDW-SD) 52.1 fL 37 .0-51.0 H PLATELET COUNT (test code = PLT) 212 K/mm3 150-450 N MEAN PLATELET VOLUME (test code = MPV) 9.9 fL 6.7-11.0 N NEUTROPHIL % (test code = NT%) 71.0 % 39.0-69.0 H IMMATURE GRANULOCYTE % (test code = IG%) 0.4 % 0.0-5.0 N LYMPHOCYTE % (test code = LY%) 9.8 % 25.0-55.0 L MONOCYTE % (test code = MO%) 18.1 % 0.0-10.0 H EOSINOPHIL % (test code = EO%) 0.5 % 0.0-5.0 N BASOPHIL % (test code = BA%) 0.2 % 0.0-1.0 N NUCLEATED RBC % (test code = NRBC%) 0.0 % 0-0 N NEUTROPHIL # (test code = NT#) 5.98 K/mm3 1.8-7.7 N IMMATURE GRANULOCYTE # (test code = IG#) 0.03 x10 3/uL 0-0.03 N LYMPHOCYTE # (test code = LY#) 0.82 K/mm3 1.0-5.0 L MONOCYTE # (test code = MO#) 1.52 K/mm3 0-0.8 H EOSINOPHIL # (test code = EO#) 0.04 K/mm3 0.0-0.5 N BASOPHIL # (test code = BA#) 0.02 K/mm3 0.0-0.2 N NUCLEATED RBC # (test code = NRBC#) 0.00 K/mm3 0.0-0.1 N MANUAL DIFF REQUIRED (test code = MDIFF) NO, ONLY SCAN NEEDED DIFFERENTIAL [id number] 05:48:00* Test Item Value Reference Range Interpretation Comments STAIN ACCEPTABILITY (test code = STN ACCEPTABLE) CABOT RINGS (test code = CAB) MORPHOLOGY COMMENT (test code = MOC) PLATELET ESTIMATE (test code = PLTEST) PLATELET MORPHOLOGY (test code = PLTMORPH) CBC W/AUTO [id number] 05:48:00* Test Item Value Reference Range Interpretation Comments WHITE BLOOD CELL (test code = WBC) 8.4 K/mm3 4.5-12.5 N RED BLOOD CELL (test code = RBC) 3.98 mill/mm3 4.0-5.8 L HEMOGLOBIN (test code = HGB) 11.2 gram/dL 13.0-17.5 L HEMATOCRIT (test code = HCT) 34.9 % 42.0-52.0 L MEAN CELL VOLUME (test code = MCV) 87.7 fL 80-98 N MEAN CELL HGB (test code = MCH) 28.1 picogram 27.0-33.0 N MEAN CELL HGB CONCETRATION (test code = MCHC) 32.1 gram/dL 33.0-36. 0 L RED CELL DISTRIBUTION WIDTH (test code = RDW) 16.8 % 11.6-16. 2 H RED CELL DISTRIBUTION WIDTH SD (test code = RDW-SD) 52.1 fL 37 .0-51.0 H PLATELET COUNT (test code = PLT) 212 K/mm3 150-450 N MEAN PLATELET VOLUME (test code = MPV) 9.9 fL 6.7-11.0 N NEUTROPHIL % (test code = NT%) 71.0 % 39.0-69.0 H IMMATURE GRANULOCYTE % (test code = IG%) 0.4 % 0.0-5.0 N LYMPHOCYTE % (test code = LY%) 9.8 % 25.0-55.0 L MONOCYTE % (test code = MO%) 18.1 % 0.0-10.0 H EOSINOPHIL % (test code = EO%) 0.5 % 0.0-5.0 N BASOPHIL % (test code = BA%) 0.2 % 0.0-1.0 N NUCLEATED RBC % (test code = NRBC%) 0.0 % 0-0 N NEUTROPHIL # (test code = NT#) 5.98 K/mm3 1.8-7.7 N IMMATURE GRANULOCYTE # (test code = IG#) 0.03 x10 3/uL 0-0.03 N LYMPHOCYTE # (test code = LY#) 0.82 K/mm3 1.0-5.0 L MONOCYTE # (test code = MO#) 1.52 K/mm3 0-0.8 H EOSINOPHIL # (test code = EO#) 0.04 K/mm3 0.0-0.5 N BASOPHIL # (test code = BA#) 0.02 K/mm3 0.0-0.2 N NUCLEATED RBC # (test code = NRBC#) 0.00 K/mm3 0.0-0.1 N MANUAL DIFF REQUIRED (test code = MDIFF) NO, ONLY SCAN NEEDED DIFFERENTIAL [id number] 05:48:00* Test Item Value Reference Range Interpretation Comments STAIN ACCEPTABILITY (test code = STN ACCEPTABLE) MORPHOLOGY COMMENT (test code = MOC) PLATELET ESTIMATE (test code = PLTEST) PLATELET MORPHOLOGY (test code = PLTMORPH) CBC W/AUTO [id number] 05:48:00* Test Item Value Reference Range Interpretation Comments WHITE BLOOD CELL (test code = WBC) 8.4 K/mm3 4.5-12.5 N RED BLOOD CELL (test code = RBC) 3.98 mill/mm3 4.0-5.8 L HEMOGLOBIN (test code = HGB) 11.2 gram/dL 13.0-17.5 L HEMATOCRIT (test code = HCT) 34.9 % 42.0-52.0 L MEAN CELL VOLUME (test code = MCV) 87.7 fL 80-98 N MEAN CELL HGB (test code = MCH) 28.1 picogram 27.0-33.0 N MEAN CELL HGB CONCETRATION (test code = MCHC) 32.1 gram/dL 33.0-36. 0 L RED CELL DISTRIBUTION WIDTH (test code = RDW) 16.8 % 11.6-16. 2 H RED CELL DISTRIBUTION WIDTH SD (test code = RDW-SD) 52.1 fL 37 .0-51.0 H PLATELET COUNT (test code = PLT) 212 K/mm3 150-450 N MEAN PLATELET VOLUME (test code = MPV) 9.9 fL 6.7-11.0 N NEUTROPHIL % (test code = NT%) 71.0 % 39.0-69.0 H IMMATURE GRANULOCYTE % (test code = IG%) 0.4 % 0.0-5.0 N LYMPHOCYTE % (test code = LY%) 9.8 % 25.0-55.0 L MONOCYTE % (test code = MO%) 18.1 % 0.0-10.0 H EOSINOPHIL % (test code = EO%) 0.5 % 0.0-5.0 N BASOPHIL % (test code = BA%) 0.2 % 0.0-1.0 N NUCLEATED RBC % (test code = NRBC%) 0.0 % 0-0 N NEUTROPHIL # (test code = NT#) 5.98 K/mm3 1.8-7.7 N IMMATURE GRANULOCYTE # (test code = IG#) 0.03 x10 3/uL 0-0.03 N LYMPHOCYTE # (test code = LY#) 0.82 K/mm3 1.0-5.0 L MONOCYTE # (test code = MO#) 1.52 K/mm3 0-0.8 H EOSINOPHIL # (test code = EO#) 0.04 K/mm3 0.0-0.5 N BASOPHIL # (test code = BA#) 0.02 K/mm3 0.0-0.2 N NUCLEATED RBC # (test code = NRBC#) 0.00 K/mm3 0.0-0.1 N MANUAL DIFF REQUIRED (test code = MDIFF) NO, ONLY SCAN NEEDED DIFFERENTIAL [id number] 05:48:00* Test Item Value Reference Range Interpretation Comments STAIN ACCEPTABILITY (test code = STN ACCEPTABLE) CABOT RINGS (test code = CAB) MORPHOLOGY COMMENT (test code = MOC) PLATELET ESTIMATE (test code = PLTEST) PLATELET MORPHOLOGY (test code = PLTMORPH) - [facility] [id number] 00:11:00 Name: PEDRO JEFFERY [facility] : 1945 Age/S: 73 / M [address] Unit #: [id number] Loc: [place] [address] Phys: Isai Larsen MD Acct: [id number] Dis Date: Status: ADM IN PHONE #: [phone] Exam Date: 05/12/2019 3897 FAX #: [phone] Reason: avtar EXAMS: CPT CODE: [id number] US RETROPERITONEAL COM [id number] LOCATION: H43 EXAM: - US RETROPERITONEAL COM HISTORY: Acute renal insufficiency TECHNIQUE: Sonographic imaging of the bilateral kidney and urinary bladder in the transverse and sagittal planes. COMPARISON: CT abdomen and pelvis performed earlier the same day FINDINGS: The kidneys are within normal limits of size. The right kidney measures 12.0 and cm in length, and the left measures 10.0 cm in length. The renal parenchymal echogenicity appears within normal limits. Diffuse left renal cortical thinning is present. No contour defo rming masses are identified on the submitted still images. Collecting system dilatation consistent with mild hydronephrosis. This ap pears improved when compared to the prior CT. A Younger catheter is present within the partially distended urinary bladder. IMPRESSION: Mild bilateral hydronephrosis. Diffu se left renal cortical thinning. A Younger catheter is present w ithin the partially distended urinary bladder. Monse ctronically Signed by Joan Hwang M.D. on 05/13/2019 at 0011 Reported and signed by: Joan Hwang M.D. PAGE 1 Signed Report (CONTINUED) Name: PEDRO JEFFERY [facility] : 1945 Age/S: 73 / M [address] [facility] Unit #: [id number] Loc: [place] [address] Phys: Isai Larsne MD Acct: [id number] Dis Date: Status: ADM IN PHONE #: [phone] Exam Date: 2019 8463 FAX #: [phone] Reason: avtar EXAMS: CPT CODE: [id number] US RETROPERITONEAL COM [id number] <Continued> CC: Isai Larsen MD Technologist: Jeaneth Fraser RDMS Trnscb Date/Time: 05/13/2019 (001) t.[email or web address] Orig Print D/T: S: 05/13/2019 (0014) Probe: PAGE 2 Signed Report URINALYSIS [id number] 16:19:00* Test Item Value Reference Range Interpretation Comments UA COLOR (test code = COLU) Light-Yellow YELLOW UA APPEARANCE (test code = APPU) CLEAR CLEAR UA GLUCOSE DIPSTICK (test code = DGLUU) NEGATIVE mg/dL NEGATIVE UA BILIRUBIN DIPSTICK (test code = BILU) NEGATIVE mg/dL NEGATIVE UA KETONE DIPSTICK (test code = KETU) NEGATIVE mg/dL NEGATIVE UA SPECIFIC GRAVITY (test code = SGU) 1.006 1.001-1.035 UA BLOOD DIPSTICK (test code = ALEXIS) 0.2 mg/dL (2+) mg/dL NEGATIVE A UA PH DIPSTICK (test code = EDWARD) 5.0 5.0-8.0 UA PROTEIN DIPSTICK (test code = PROU) 30 (1+) mg/dL NEGATIVE A UA UROBILINIOGEN DIPSTICK (test code = URO) Normal mg/dL NEGATIVE UA NITRITE DIPSTICK (test code = BERNICE) NEGATIVE NEGATIVE UA LEUKOCYTE ESTERASE W REFLEX (test code = LEUUR) NEGATIVE Gagan/uL NEGATIVE UA WBC (test code = WBCU) 0-5 per HPF 0-5 UA RBC (test code = RBCU) 0-2 #/HPF 0-5 UA EPITHELIAL CELLS (test code = EPIU) FEW per HPF FEW UA BACTERIA (test code = BACU) per HPF NONE UA AMORPHOUS SEDIMENT (test code = AMORU) FEW #/LPF Urine Source? Clean CatchURINALYSIS [id number] 16:19:00* Test Item Value Reference Range Interpretation Comments UA COLOR (test code = COLU) Light-Yellow YELLOW UA APPEARANCE (test code = APPU) CLEAR CLEAR UA GLUCOSE DIPSTICK (test code = DGLUU) NEGATIVE mg/dL NEGATIVE UA BILIRUBIN DIPSTICK (test code = BILU) NEGATIVE mg/dL NEGATIVE UA KETONE DIPSTICK (test code = KETU) NEGATIVE mg/dL NEGATIVE UA SPECIFIC GRAVITY (test code = SGU) 1.006 1.001-1.035 UA BLOOD DIPSTICK (test code = ALEXIS) 0.2 mg/dL (2+) mg/dL NEGATIVE A UA PH DIPSTICK (test code = EDWARD) 5.0 5.0-8.0 UA PROTEIN DIPSTICK (test code = PROU) 30 (1+) mg/dL NEGATIVE A UA UROBILINIOGEN DIPSTICK (test code = URO) Normal mg/dL NEGATIVE UA NITRITE DIPSTICK (test code = BERNICE) NEGATIVE NEGATIVE UA LEUKOCYTE ESTERASE W REFLEX (test code = LEUUR) NEGATIVE Gagan/uL NEGATIVE UA WBC (test code = WBCU) 0-5 per HPF 0-5 UA RBC (test code = RBCU) 0-2 #/HPF 0-5 UA EPITHELIAL CELLS (test code = EPIU) FEW per HPF FEW UA BACTERIA (test code = BACU) NONE SEEN per HPF NONE UA AMORPHOUS SEDIMENT (test code = AMORU) FEW #/LPF Urine Source? Clean Catch- CT ABD PELVIS W/O [id number] 14:14:00 Name: PEDRO JEFFERY [facility] : 1945 Age/S: 73 / M [address] Unit #: [id number] Loc: [place], [place] [address] Phys: Jacobo Moreno DO Acct: [id number] Di s Date: Status: REG ER PHONE #: Exam Date: 05/12/2019 1350 FAX #: [phone] Reason: pain EXAMS: CPT CODE: [id number] CT ABD PELVIS W/O CONT 27385 HISTORY: Pain and dysuria . COMPARISON: CT scan from October 05, 2008 and September 22, 2008. Location: [facility]. CT abdomen and pelvis: Stone protocol. Automated exposure control. CT of abdomen: The lung bases are clear with dependent changes. The liver is diffusely fat ty infiltrated on this noncontrast exam. No discrete parenchymal mass or a rchitectural distortion is noted. The liver is enlarged at 20 cm in length . Patient is post cholecystectomy. The spleen is not enlarged. The stomach distended incompletely however it is normal in appearance. The noncontrast pancreas and adrenals are normal. Moderate hydroureteronephrosis bilaterally suggesting outlet obstruction bilateral ly. No pathologic adenopathy. Mild atherosclerotic change of the a bdominal and pelvic vasculature. No bowel obstruction or col itis or diverticulitis or enteritis. CT PELVIS: Appe ndix is normal. Pelvic bowel loops are unobstructed. Prostatomegal y noted again measuring up to 6 cm in AP direction and 6 cm in width. Lynn rely distended urinary bladder extending to the lower abdomen with marked bilateral hydroureter likely outlet obstruction. Megaloureter distally on the left side noted again. Placement of Younger catheter recommended. No pat hologic adenopathy. No free fluid or free air. No pelvic pathologic adenop athy. Subcutaneous tissues and the musculature are normal in apphima osvaldo. No lytic or blastic lesions are noted within the bony skeleton. DJD . IMPRESSION: PAGE 1 Signed Report (CONTINUED) Name: PEDRO JEFFERY [facility] : 1945 Age/S: 73 / M [address] [facility] Unit #: [id number] Loc: [place] [address] Phys: Jacobo Moreno DO Acct: [id number] Dis Date: Status: REG ER PHONE #: [phone] Exam Date: 05/12/2019 13 55 FAX #: [phone] Reason: pain EXAMS: CPT CODE: [id number] CT ABD PELVIS W/O CONT 24787 <Continued> Bilateral moderate hydroureteronephrosis with marked distention of the urinary bladder likely resulting in outlet obstruction. Prostatomegaly as well. Prostate measured 6 x 6 cm. Placement of Younger catheter would be of value. Unchanged left distal megaloureter. No calyceal stones. No obstructing ureteral stones. Correlate with urinalysis. at 1414 Reported and signed by: Charlie Padilla M.D. CC: Jacobo Moreno DO Technologist:Louis Tejada RT(R),(MR),(CT); CTDI: DLP: Trnscb Date/Time: 05/12/2019 (1414) [email or web address] Orig Print D/T: S: 05/12/2019 (7044) PAGE 2 Signed Report BASIC METABOLIC PANEL 2019-05-12 13:28:00* Test Item Value Reference Range Interpretation Comments SODIUM (test code = NA) 129 mmol/L 136-145 L POTASSIUM (test code = K) 4.1 mmol/L 3.5-5.1 N CHLORIDE (test code = CL) 96.0 mmol/L 98-107 L CARBON DIOXIDE (test code = CO2) 19.0 mmol/L 21-32 L ANION GAP (test code = GAP) 18.1 10-20 N GLUCOSE (test code = GLU) 65 mg/dL 74-106 L BLOOD UREA NITROGEN (test code = BUN) 34 mg/dL 7-18 H GLOMERULAR FILTRATION RATE (test code = GFR) 33 mL/min >=60 Estimated GFR by using Modified MDRD formula.Chronic kidney disease is defined as either kidney damageor GFR <60 mL/min/1.73 m2 for >3 months. CREATININE (test code = CREAT) 2.00 mg/dL 0.7-1.3 H BUN/CREATININE RATIO (test code = BUN/CREA) 17.0 10-20 N CALCIUM (test code = CA) 8.2 mg/dL 8.5-10.1 L HEPATIC FUNCTION [id number] 13:28:00* Test Item Value Reference Range Interpretation Comments TOTAL PROTEIN (test code = PROT) 7.9 gram/dL 6.4-8.2 N ALBUMIN (test code = ALB) 3.0 g/dL 3.4-5.0 L GLOBULIN (test code = GLOB) 4.9 gram/dL 2.7-4.2 H ALBUMIN/GLOBULIN RATIO (test code = A/G) 0.6 0.75-1.50 L BILIRUBIN TOTAL (test code = BILT) 0.60 mg/dL 0.0-1.0 N BILIRUBIN DIRECT (test code = BILD) 0.21 mg/dL 0.0-0.20 H SGOT/AST (test code = AST) 77 IUnit/L 15-37 H SGPT/ALT (test code = ALT) 83 IUnit/L 12-78 H ALKALINE PHOSPHATASE TOTAL (test code = ALKP) 118 IUnit/L 45-117 H Note change in reference range due to change in reagent. [id number] 13:28:00* Test Item Value Reference Range Interpretation Comments LIPASE (test code = LIP) 1336 U/L 73.0-393.0 H [id number] 13:28:00* Test Item Value Reference Range Interpretation Comments TROPONIN-I (test code = TROPI) <0.015 ng/mL 0-0.045 N CBC W/O [id number] 13:08:00* Test Item Value Reference Range Interpretation Comments WHITE BLOOD CELL (test code = WBC) 10.3 K/mm3 4.5-12.5 N RED BLOOD CELL (test code = RBC) 4.00 mill/mm3 4.0-5.8 N HEMOGLOBIN (test code = HGB) 11.5 gram/dL 13.0-17.5 L HEMATOCRIT (test code = HCT) 34.9 % 42.0-52.0 L MEAN CELL VOLUME (test code = MCV) 87.3 fL 80-98 N MEAN CELL HGB (test code = MCH) 28.8 picogram 27.0-33.0 N MEAN CELL HGB CONCETRATION (test code = MCHC) 33.0 gram/dL 33.0-36. 0 N RED CELL DISTRIBUTION WIDTH (test code = RDW) 16.4 % 11.6-16. 2 H PLATELET COUNT (test code = PLT) 204 K/mm3 150-450 N MEAN PLATELET VOLUME (test code = MPV) 9.6 fL 6.7-11.0 N Urine [id number] 09:16:35* Test Item Value Reference Range Interpretation Comments ORGANISM (test code = ORGANISM) Staphylococcus species, coagulase n egative Amoxicillin/Clavulanate (test code = Amox/Cla) S Ampicillin/Sulbactam (test code = Amp/Sul) S Cefazolin (test code = Cefaz) S Ceftriaxone (test code = Ceftri) S Ciprofloxacin (test code = Cipro) S Gentamicin (test code = Gent) S Imipenem (test code = Imi) S Levofloxacin (test code = Levo) S Linezolid (test code = Linez) S Nitrofurantoin (test code = Nitro) S Oxacillin (test code = Ox) S Rifampin (test code = Rif) S Tetracycline (test code = Tetra) R Trimethoprim/Sulfa (test code = SXT) R Vancomycin (test code = Vanc) S Final Report (test code = Final Report) >=100,000 cfu/ ml Coagulase Negative Staphylococcus C Urine Added by [id number] 04:51:28* Test Item Value Reference Range Interpretation Comments Troponin-T (test code = Troponin-T) 31.910 ng/L 0.000-22.000 Critical results called to jairo vigil at 05/07/2019 04:51:22 CDT by og. Read back and verified? yesThe CV of the assay at 99th percentile for both male and female patient population is < 10%. A rise and fall in JUDY with at least one value above the 99th percentile with clinical evidence of myocardial ischemia would support a diagnosis of AMI. A delta of at least 20% is recommended to assess acute changes in results above the 99th percentile in serial measurements. Stable JUDY levels (<20%) delta above the 99th percentile URL would support a diagnosis of chronic myocardial injury. Urinalysis [id number] 03:27:55* Test Item Value Reference Range Interpretation Comments UA WBC (test code = UA WBC) 0-5 0-5 UA RBC (test code = UA RBC) 0-5 0-5 UA Bacteria (test code = UA Bacteria) Moderate A UA Squam Epithelial (test code = UA Squam Epithelial) 6-10 A UA Mucous (test code = UA Mucous) Few A Urine Drug [id number] 02:41:40* Test Item Value Reference Range Interpretation Comments Amphetamine Screen Ur (test code = Amphetamine Screen Ur) Negative Negative Barbiturate Screen Ur (test code = Barbiturate Screen Ur) Negative Negative Benzodiazepines Ur (test code = Benzodiazepines Ur) Negative Ne gative Cocaine Screen Ur (test code = Cocaine Screen Ur) Negative Nega tive U Methadone Scr (test code = U Methadone Scr) Negative Negative Opiate Screen Ur (test code = Opiate Screen Ur) POSITIVE Negati ve A U PCP Scrn (test code = U PCP Scrn) Negative Negative Cannabinoid Screen Ur (test code = Cannabinoid Screen Ur) Negative Negative U TCA (test code = U TCA) Negative Negative Th e results of all drug screen tests are only preliminary. Clinical consideration and professional judgment should be applied to any drug of abuse test result, particularly when preliminary positive results are obtained. Please order a separate confirmatory test if desired. Urinalysis with Culture, if [id number] 02:37:00* Test Item Value Reference Range Interpretation Comments UA Color (test code = UA Color) YELLO Yellow UA Appear (test code = UA Appear) CLEAR Clear UA pH (test code = UA pH) 5.0 UA Spec Grav (test code = UA Spec Grav) 1.030 1.001-1.035 UA Glucose (test code = UA Glucose) 100 mg/dL Negative A UA Bili (test code = UA Bili) NEG Negative UA Ketones (test code = UA Ketones) NEG Negative UA Blood (test code = UA Blood) LRG Negative A UA Protein (test code = UA Protein) 500 mg/dL Negative A UA Urobilinogen (test code = UA Urobilinogen) .2 mg/dL >0.2 UA Nitrite (test code = UA Nitrite) NEG Negative UA Leuk Est (test code = UA Leuk Est) NEG Negative UA Micro Ind? (test code = UA Micro Ind?) Indicated Not Indicate d A Troponin [id number] 00:16:53* Test Item Value Reference Range Interpretation Comments Troponin-T (test code = Troponin-T) 32.970 ng/L 0.000-22.000 Critical results called to chanelle day at 05/07/2019 00:16:45 CDT by og. Read back and verified? yesThe CV of the assay at 99th percentile for both male and female patient population is < 10%. A rise and fall in JUDY with at least one value above the 99th percentile with clinical evidence of myocardial ischemia would support a diagnosis of AMI. A delta of at least 20% is recommended to assess acute changes in results above the 99th percentile in serial measurements. Stable JUDY levels (<20%) delta above the 99th percentile URL would support a diagnosis of chronic myocardial injury. CT Abdomen and Pelvis w/o [id number] 23:45:59Patient: PEDRO JEFFERY Date/Time05/06/2019 22:50 CDTReason for ExamAbdominal painReportExam: CT abdomen and pelvis without contrast.Location: H 12HISTORY: Abdominal painTechnique: Unenhanced spiral slices were taken from the dome of the diaphragm to the pubic symphysis. Sagittal and coronal images were obtained. One or more of the following radiation dose reduction techniques was used: Automatic exposure control, adj ustment of mA and/or KV according to the patient's size, and/or utilization of i terative reconstruction technique.Findings:The liver diffusely of decreased atte nuation consistent fatty infiltration. No mass is seen. The intra and extrahepat ic biliary tree is normal. The gallbladder removed.The pancreas is normal. The p ancreatic duct is normal in caliber. The spleen and adrenal glands are normal in size and shape.The bladder is capacious with a 3.0 cm left proximal diverticulu m noted. The ureters are slightly patulous due to chronic bladder outlet obstruc tion The kidneys are normal. No nephrolithiasis or perinephric fluid collections are seen.The large and small intestine are normal in caliber. The appendix is n ormal. No inflammatory change is identified.No lymphadenopathy or free fluid is found in the abdomen or the pelvis.The prostate gland is enlarged. The pelvic st ructures are otherwise unremarkable.Atherosclerosis, spondylosis and osteoarthri tis noted. The lung bases are clear.No incidental abdominal findings are noted.I mpression:1. No acute abdominal findings.2. Fatty liver.3. Status post cholecyst ectomy.4. Prostatomegaly with chronic bladder outlet obstruction. Final Dictated by: MD Barcenas Francesco MDictated DT/TM: 05/06/2019 11:43 pmSig inder by: MD Barcenas Francesco MSigned (Electronic Signature): 05/06/2019 11:4 5 pmProthrombin Time and [id number] 22:33:32* Test Item Value Reference Range Interpretation Comments Prothrombin Time (test code = Prothrombin Time) 12.8 seconds 9.8-13 .4 INR (test code = INR) 1.1 ratio 0.6-1.2 Partial Thromboplastin [id number] 22:33:32* Test Item Value Reference Range Interpretation Comments Partial Thromboplastin Time (test code = Partial Throm boplastin Time) 29.80 seconds 24.39-37.25 XR Chest 1 View [id number] 22:32:19Patient: PEDRO JEFFERY Date/Time05/06/2019 19:26 CDTReason for ExamChest painReportLocation: [id number] X-RAY: AP frontal film of the chest, portable technique, 05/06/2019CLINICAL HISTORY: Chest pain, ER presentationCOMPARISON EXAMS: None of the chestFINDINGS:Heart, lungs, and mediastinal structures are within normal limits other than minimal probable platelike atelectatic changes versus linear scarring at the right lung base. No pneumonia or CHF. No definite acute fracture or abnormal air collection .Impression:Probable mild atelectatic changes versus linear fibrosis at the righ t lung base. No pneumonia or CHF Final Dictated by: MD Derian, Maxine JARRETTictated DT/TM: 05/06/2019 10:31 pmSigned by: MD Menard Deborah MSigned (Electronic Signature): 05/06/2019 10:32 pmLipase Level 2019-05-06 21:18:24* Test Item Value Reference Range Interpretation Comments Lipase Level (test code = Lipase Level) 410 U/L 13-60 H Troponin [id number] 21:12:53* Test Item Value Reference Range Interpretation Comments Troponin-T (test code = Troponin-T) 32.750 ng/L 0.000-22.000 Critical results called to Saturnino Day at 05/06/2019 21:12:47 CDT by brooke. Read back and verified? yesThe CV of the assay at 99th percentile for both male and female patient population is < 10%. A rise and fall in JUDY with at least one value above the 99th percentile with clinical evidence of myocardial ischemia would support a diagnosis of AMI. A delta of at least 20% is recommended to assess acute changes in results above the 99th percentile in serial measurements. Stable JUDY levels (<20%) delta above the 99th percentile URL would support a diagnosis of chronic myocardial injury. Creatine [id number] 21:11:04* Test Item Value Reference Range Interpretation Comments CK (test code = CK) 1516 U/L 39-308 H Creatine Kinase MB [id number] 21:11:04* Test Item Value Reference Range Interpretation Comments CKMB (test code = CKMB) 23.7 ng/mL 0.0-4.9 H CKMB % (test code = CKMB %) 1.6 % 0.0-3.4 Alcohol [id number] 21:11:04* Test Item Value Reference Range Interpretation Comments Ethanol Level (test code = Ethanol Level) 0.29 g/dL 0.00-0.01 H Intoxicated 0.080 g/dL or more Ethanol Inst (test code = Ethanol Inst) 291 N Comprehensive Metabolic [id number] 21:11:03* Test Item Value Reference Range Interpretation Comments Sodium Level (test code = Sodium Level) 135.0 mmol/L 135.0-145.0 Potassium Level (test code = Potassium Level) 4.6 mmol/L 3.5-5.1 Chloride Level (test code = Chloride Level) 94 mmol/L 98-105 L CO2 (test code = CO2) 17 mmol/L 22-29 L Anion Gap (test code = Anion Gap) 24 mmol/L 7-16 H BUN (test code = BUN) 31.90 mg/dL 8.00-23.00 H Creatinine Level (test code = Creatinine Level) 1.60 mg/dL 0.70-1 .20 H BUN/Creat Ratio (test code = BUN/Creat Ratio) 20 N Glucose Level (test code = Glucose Level) 231 mg/dL 70-115 H Calcium Level (test code = Calcium Level) 7.5 mg/dL 8.3-10.5 L Alk Phos (test code = Alk Phos) 119 U/L 40-129 Bilirubin Total (test code = Bilirubin Total) 0.4 mg/dL 0.1-0.9 Albumin Level (test code = Albumin Level) 3.6 g/dL 3.5-5.2 Protein Total (test code = Protein Total) 6.3 g/dL 6.4-8.3 L ALT (test code = ALT) 85 U/L 1-41 H AST (test code = AST) 124 U/L 1-40 H Globulin (test code = Globulin) 2.7 g/dL 2.9-3.1 L A/G Ratio (test code = A/G Ratio) 1.3 ratio N Comprehensive Metabolic [id number] 21:11:03* Test Item Value Reference Range Interpretation Comments Sodium Level (test code = Sodium Level) 135.0 mmol/L 135.0-145.0 Potassium Level (test code = Potassium Level) 4.6 mmol/L 3.5-5.1 Chloride Level (test code = Chloride Level) 94 mmol/L 98-105 L CO2 (test code = CO2) 17 mmol/L 22-29 L Anion Gap (test code = Anion Gap) 24 mmol/L 7-16 H BUN (test code = BUN) 31.90 mg/dL 8.00-23.00 H Creatinine Level (test code = Creatinine Level) 1.60 mg/dL 0.70-1 .20 H BUN/Creat Ratio (test code = BUN/Creat Ratio) 20 N Glucose Level (test code = Glucose Level) 231 mg/dL 70-115 H Calcium Level (test code = Calcium Level) 7.5 mg/dL 8.3-10.5 L Alk Phos (test code = Alk Phos) 119 U/L 40-129 Bilirubin Total (test code = Bilirubin Total) 0.4 mg/dL 0.1-0.9 Albumin Level (test code = Albumin Level) 3.6 g/dL 3.5-5.2 Protein Total (test code = Protein Total) 6.3 g/dL 6.4-8.3 L ALT (test code = ALT) 85 U/L 1-41 H AST (test code = AST) 124 U/L 1-40 H Globulin (test code = Globulin) 2.7 g/dL 2.9-3.1 L A/G Ratio (test code = A/G Ratio) 1.3 ratio N eGFR AA (test code = eGFR AA) 51 mL/min/1.73 m2 N eGFR (estimated Glomerular Filtration Rate) is an estimated value, calculated from the patient's serum creatinine using the MDRD equation. It is NOT the patient's actual GFR. The eGFR provides a more clinically useful measure of kidney disease than serum creatinine alone.This calculation takes sex and race into account, if the information is provided. If the race is not provided, and the patient is -[place], multiply by 1.212. If sex is not provided, and the patient is female, multiply by 0.742. Results for patients <18 years of age have not been validated by the MDRD study and should be interpreted with caution. eGFR Result Interpretation:eGFR > or = 60 is in the Normal RangeeGFR < 60 may mean kidney diseaseeGFR < 15 may mean kidney failure Ranges recommended by the National Kidney Foundation, http://nkdep.nih.gov Comprehensive Metabolic [id number] 21:11:03* Test Item Value Reference Range Interpretation Comments Sodium Level (test code = Sodium Level) 135.0 mmol/L 135.0-145.0 Potassium Level (test code = Potassium Level) 4.6 mmol/L 3.5-5.1 Chloride Level (test code = Chloride Level) 94 mmol/L 98-105 L CO2 (test code = CO2) 17 mmol/L 22-29 L Anion Gap (test code = Anion Gap) 24 mmol/L 7-16 H BUN (test code = BUN) 31.90 mg/dL 8.00-23.00 H Creatinine Level (test code = Creatinine Level) 1.60 mg/dL 0.70-1 .20 H BUN/Creat Ratio (test code = BUN/Creat Ratio) 20 N Glucose Level (test code = Glucose Level) 231 mg/dL 70-115 H Calcium Level (test code = Calcium Level) 7.5 mg/dL 8.3-10.5 L Alk Phos (test code = Alk Phos) 119 U/L 40-129 Bilirubin Total (test code = Bilirubin Total) 0.4 mg/dL 0.1-0.9 Albumin Level (test code = Albumin Level) 3.6 g/dL 3.5-5.2 Protein Total (test code = Protein Total) 6.3 g/dL 6.4-8.3 L ALT (test code = ALT) 85 U/L 1-41 H AST (test code = AST) 124 U/L 1-40 H Globulin (test code = Globulin) 2.7 g/dL 2.9-3.1 L A/G Ratio (test code = A/G Ratio) 1.3 ratio N eGFR AA (test code = eGFR AA) 51 mL/min/1.73 m2 N eGFR (estimated Glomerular Filtration Rate) is an estimated value, calculated from the patient's serum creatinine using the MDRD equation. It is NOT the patient's actual GFR. The eGFR provides a more clinically useful measure of kidney disease than serum creatinine alone.This calculation takes sex and race into account, if the information is provided. If the race is not provided, and the patient is -[place], multiply by 1.212. If sex is not provided, and the patient is female, multiply by 0.742. Results for patients <18 years of age have not been validated by the MDRD study and should be interpreted with caution. eGFR Result Interpretation:eGFR > or = 60 is in the Normal RangeeGFR < 60 may mean kidney diseaseeGFR < 15 may mean kidney failure Ranges recommended by the National Kidney Foundation, http://nkdep.nih.gov eGFR Non-AA (test code = eGFR Non-AA) 42.35 mL/min/1.73 m2 N eGFR (estimated Glomerular Filtration Rate) is an estimated value, calculated from the patient's serum creatinine using the MDRD equation. It is NOT the patient's actual GFR. The eGFR provides a more clinically useful measure of kidney disease than serum creatinine alone.This calculation takes sex and race into account, if the information is provided. If the race is not provided, and the patient is -[place], multiply by 1.212. If sex is not provided, and the patient is female, multiply by 0.742. Results for patients <18 years of age have not been validated by the MDRD study and should be interpreted with caution. eGFR Result Interpretation:eGFR > or = 60 is in the Normal RangeeGFR < 60 may mean kidney diseaseeGFR < 15 may mean kidney failure Ranges recommended by the National Kid[employer] Foundation, http://nkdep.nih.gov Complete Blood Count with [id number] 20:39:53* Test Item Value Reference Range Interpretation Comments WBC (test code = WBC) 10.4 x10 4.4-10.5 RBC (test code = RBC) 4.65 x10 4.10-5.70 Hgb (test code = Hgb) 13.1 g/dL 13.4-17.4 L Hct (test code = Hct) 40.0 % 38.7-52.0 MCV (test code = MCV) 86.00 fL 80.00-100.00 MCHC (test code = MCHC) 32.80 g/dL 32.00-37.50 RDW CV (test code = RDW CV) 15.9 % 11.5-14.5 H MCH (test code = MCH) 28.2 pg 27.0-32.5 Platelets (test code = Platelets) 261.0 x10 140.0-440.0 MPV (test code = MPV) 9.8 fL N Slide Review (test code = Slide Review) Auto Auto Result created by [email or web address] nRBC (test code = nRBC) 0 N NRBC Abs (test code = NRBC Abs) 0.00 x10 N IPF (test code = IPF) 0 % N Automated [id number] 20:39:53* Test Item Value Reference Range Interpretation Comments Neutro Auto (test code = Neutro Auto) 74.7 % 36.0-70.0 H Lymph Auto (test code = Lymph Auto) 15.2 % 12.0-44.0 [place] Auto (test code = [place] Auto) 9.3 % 0.0-11.0 Eos, Auto (test code = Eos, Auto) 0.0 % 0.0-7.0 Basophil Auto (test code = Basophil Auto) 0.5 % 0.0-2.0 Neutro Absolute (test code = Neutro Absolute) 7.8 x10 1.6-7.4 H Lymph Absolute (test code = Lymph Absolute) 1.59 x10 .50-4.60 [place] Absolute (test code = [place] Absolute) .97 x10 .00-1.20 Eos Absolute (test code = Eos Absolute) 0.00 x10 0.00-0.74 Baso Absolute (test code = Baso Absolute) 0.05 x10 0.00-0.21 IG [id number] 20:39:53* Test Item Value Reference Range Interpretation Comments IG (test code = IG) 0.3 % 0.0-5.0 IG Abs (test code = IG Abs) 0 x10 N
--- NOTE | 2019-09-12 07:01 | Operative Report ---
DATE OF PROCEDURE: 08/03/2019 SURGEON: Rocky Combs MD PREOPERATIVE DIAGNOSES: 1. Obstructive benign prostatic hypertrophy. 2. Urinary tract infections. POSTOPERATIVE DIAGNOSES: 1. Obstructive benign prostatic hypertrophy. 2. Urinary tract infections. 3. Bladder diverticula. OPERATIONS PERFORMED: 1. Cystourethroscopy with bilateral ureteral catheterization and retrograde ureteropyelography (separate procedure performed for the urinary tract infections). 2. Interpretation of retrograde ureteropyelography. 3. Interpretation of cystography. 4. Supervision of fluoroscopy, no radiologist present. 5. Cystourethroscopy with transurethral resection of the prostate utilizing the plasma button electrode. ANESTHESIA: General. COMPLICATIONS: None. CLINICAL SUMMARY: Narendra August is a 74-year-old man with urinary retention of very large prostate. He is brought to the operating room as a first step and hopefully, rendering him able to void. He is aware of the risks of bleeding, infection, injury to adjacent structures, incontinence, impotence, retrograde ejaculation, failure of the procedure, need for additional procedures and elected to proceed. OPERATIVE PROCEDURE IN DETAIL: Informed consent was verified. Narendra August was properly identified, taken to the operating room, placed on the cystoscopy table in supine position. Anesthesia was uneventfully begun. The patient was then carefully and gently repositioned in the dorsal lithotomy position with all pressure points well padded. His genitalia were prepared and draped in usual sterile fashion. The cystoscope sheath with a visual obturator in place was atraumatically inserted into the patient's urethra, it was guided unremarkable distal urethra through the normal sphincteric region through the prostate bed, which was significant for trilobar prostatic hypertrophy with a very large intravesical median lobe and kissing lateral lobes. We entered the patient's bladder where panendoscopy revealed diffuse diverticula. The left ureteral orifice was actually in a left-sided diverticulum. There were no obvious suspicious lesions and there were no stones. Ureteral catheter was used to cannulate each ureter and retrograde ureteropyelograms were performed. Interpretation of retrograde ureteropyelography contrast was instilled in retrograde fashion bilaterally. There were no tumors, no stones, and no diverticula. Unobstructed drainage was observed bilaterally fluoroscopically. J-hooking was noted bilaterally. There was left ureteral tortuosity of the distal left ureter. Contrast was injected via the cystoscope and performed cystography. Interpretation of cystography, there was a large bladder diverticulum that was off the left side of the bladder and it medially deviated the distal left ureter and caused left ureteral tortuosity. We could see upon cystography a large filling defect at the base of the bladder consistent with the patient's very large intravesical median lobe. We atraumatically placed the resectoscope sheath and proceeded with performing transurethral resection of prostate utilizing the plasma button electrode. We worked hard to eliminate the median lobe. Once this was performed and we were able to avoid injuring the ureteral orifices, we worked on both lateral lobes from the bladder neck to maneuver past the verumontanum and down the surgical capsule. The patient's bladder was drained. Cystoscope was withdrawn. The belladonna and opium suppository were placed. The cystoscope was withdrawn. A Younger catheter was placed. It was irrigated to and fro to ensure it worked properly as the patient was placed in continuous bladder irrigation with clear efflux. A belladonna and opium suppository were placed revealing a larger than 50 g prostate, that is smooth, non-fluctuant without any nodules. The patient was then uneventfully reversed from anesthesia and taken to recovery room in stable condition. There were no complications to the procedure. He tolerated the procedure well. We will proceed with routine postoperative care and of course ongoing urological followup. At some point, the patient may actually need to have a procedure done on this large bladder diverticulum that is displacing the left ureteral orifice. We will first see how he does following this TURP. Rocky Combs MD [place]/MODL /[id number] cc: Esteban Thayer MD
== END 2019-08-07 11:57 | disposition home or self-care (01) | DRG 713 ==
LOC: OR 05:00 → PACU V 09:04 → MED/SURG 10:50
PROVIDERS: ADMIT Internal Medicine; ATTEND Internal Medicine
PROC: BT141ZZ Fluoroscopy of Kidneys, Ureters and Bladder using Low Osmolar Contrast (ICD-10-PCS; principal; 2019-08-03 07:00)
PROC: 0V508ZZ Destruction of Prostate, Via Natural or Artificial Opening Endoscopic (ICD-10-PCS; 2019-08-03 07:00)
DX: N40.1 Benign prostatic hyperplasia with lower urinary tract symptoms (principal); N13.30 Unspecified hydronephrosis; N39.0 Urinary tract infection, site not specified; R33.8 Other retention of urine; E78.5 Hyperlipidemia, unspecified; K21.9 Gastro-esophageal reflux disease without esophagitis; Z88.0 Allergy status to penicillin; E11.22 Type 2 diabetes mellitus with diabetic chronic kidney disease; I12.9 Hypertensive chronic kidney disease with stage 1 through stage 4 chronic kidney disease, or unspecified chronic kidney disease; N18.2 Chronic kidney disease, stage 2 (mild); Z11.59 Encounter for screening for other viral diseases; N32.3 Diverticulum of bladder; D72.829 Elevated white blood cell count, unspecified
CPT/HCPCS: 36415; 71046; 74420; 80048; 82948; 83735; 85025; 93005; 96372; C1758; J1580; J1956; J2001; J2250; J2405; J2765; J3010; J7030; U0002

== ENCOUNTER 2019-10-12 11:27 | Inpatient (IN) | payer MEDICARE, OTHER ==
[~2019-10-12] VITALS: Ht 157.5 cm; Wt 75.4 kg
[~2019-10-12 11:27] MED LIST changes: +LEVOCETIRIZINE D5 MG PO; +LEVOFLOXACIN250 MG PO; +PANTOPRAZOLE SO40 MG PO; +TRESIBA FL100 UNIT/1 SQ
--- NOTE | 2019-10-12 11:46 | Emergency Department Note ---
History of Present Illnes History of Present Illness Chief Complaint: Eye, Ear, Nose, Throat, Dental History of Present Illness This is a 74 year old male Chief Complaint Comment SENT HER BY DR. KATHI MALDONADO SEVERE SINUSITIS SINCE 09/13. FAILED 2 ANTIBIOTICS HAVING SEVER PAIN AND CT SHOWING SIGNIFICANT SINUS INFLAMMATION. Historian: Patient Arrival Mode: Car Additional Treatment LIFE SPECIALIST: NONE Ski Tow Operator Required: Yes Onset (how long ago): month(s) Location: sinus Quality: pain Radiation: Reports non-radiation Severity: moderate Onset quality: gradual Duration (how long): month(s) Timing of current episode: constant Progression: unchanged Chronicity: new Context: Denies recent surgery, Denies recent immobilization Relieving factors: none Exacerbating factors: none Associated symptoms: Reports denies other symptoms Treatments prior to arrival: none Past Medical/Family History Physician Review I have reviewed the patient's past medical and family history. Any updates have been documented here. Past Medical History Recent Fever: No Clinical Suspicion of Infectio: No New/Unexplained Change in Ment: No Past Medical History: Hypertension, Diabetes, GERD Past Surgical History: Knee Replacement Review of Systems Review of Systems Constitutional: Reports no symptoms EENTM: Reports as per HPI, Reports nose pain Cardiovascular: Reports no symptoms Respiratory: Reports no symptoms Gastrointestinal: Reports no symptoms Genitourinary: Reports no symptoms Musculoskeletal: Reports no symptoms Integumentary: Reports no symptoms Neurological: Reports no symptoms Psychological: Reports no symptoms Endocrine: Reports no symptoms Hematological/Lymphatic: Reports no symptoms Physical Exam Related Data Allergies: Coded Allergies: Penicillins (Verified Allergy, Severe, RASH, FEVER, FAINTING, 08/01/19) Triage Vital Signs Vital Signs Date Time Temp Pulse Resp B/P (MAP) Pulse Ox O2 Delivery O2 Flow Rate FiO2 10/12/19 11:31 98.8 84 18 160/61 100 Room Air Vital signs reviewed: Yes Physical Exam CONSTITUTIONAL Constitutional: Present well-developed, Present well-nourished HENT HENT: Present normocephalic, Present atraumatic, Present oropharynx clear/moist, Present nose normal, Present nasal congestion (Dried blood to R nostril. Swelling of turbinates), Present rhinorrhea HENT L/R: Present left ext ear normal, Present right ext ear normal EYES Eyes: Reports PERRL, Reports conjunctivae normal NECK Neck: Present ROM normal PULMONARY Pulmonary: Present effort normal, Present breath sounds normal CARDIOVASCULAR Cardiovascular: Present regular rhythm, Present heart sounds normal, Present capillary refill normal, Present normal rate GASTROINTESTINAL Abdominal: Present soft, Present nontender, Present bowel sounds normal GENITOURINARY Genitourinary: Present exam deferred SKIN Skin: Present warm, Present dry MUSCULOSKELETAL Musculoskeletal: Present ROM normal NEUROLOGICAL Neurological: Present alert, Present oriented x 3, Present no gross motor or sensory deficits PSYCHOLOGICAL Psychological: Present mood/affect normal, Present judgement normal Assessment & Plan Medical Decision Making MDM 74-year-old male presents for sinusitis. Examination shows inflamed nasal turbinates. Workup shows acute kidney injury. He was given Zosyn for his sinusitis and discussed with Dr. [place] who is agreed to admission for acute kidney injury and sinusitis. Reassessment Reassessment time: 13:32 Reassessment Well appearing, NAD Assessment & Plan Final Impression: (1) Sinusitis (2) ASHLY (acute kidney injury) Depart Disposition: ADMITTED Last Vital Signs Date Time Temp Pulse Resp B/P (MAP) Pulse Ox O2 Delivery O2 Flow Rate FiO2 10/12/19 11:31 98.8 84 18 160/61 100 Room Air Home Meds Reported Medications Levofloxacin (LEVOFLOXACIN) 250 Mg Tablet, 250 MG PO DAILY, TAB 08/07/19 Insulin Degludec (Tresiba Flextouch U-100) 100 Unit/1 Ml Insuln.pen, 35 SQ HS 08/03/19 Levocetirizine Dihydrochloride (LEVOCETIRIZINE DIHYDROCHLORIDE) 5 Mg Tablet, 5 MG PO DAILY 08/03/19 Pantoprazole Sodium* (PROTONIX) 40 Mg Tablet.dr, 40 MG PO DAILY, TAB 08/03/19 Metoprolol Succinate (METOPROLOL SUCCINATE) 50 Mg Tab.er.24h, 25 MG PO DAILY, MG 08/01/19 Metformin Hcl (METFORMIN HCL) 500 Mg Tablet, 500 MG PO BID, #60 TAB 08/01/19 JAI TAO MD Oct 12, 2019 11:46
[2019-10-12 11:58] LABS: BASOPHILS # (AUTO) 0.1 (0.0-0.1); BASOPHILS % 0.4 % (0.0-1.0); EOSINOPHILS # (AUTO) 0.1 (0.0-0.4); HEMATOCRIT 30.6 % (38.2-49.6); HEMOGLOBIN 9.4 g/dL (14.0-18.0); LYMPHOCYTES % 8.4 % (18.0-39.1); MEAN CORPUSCULAR HEMOGLOBIN 25.5 pg (28-32); MEAN CORPUSCULAR HGB CONC 30.7 g/dL (31-35); MEAN CORPUSCULAR VOLUME 83.2 fL (81-99); MONOCYTES # (AUTO) 0.8 (0.2-0.8); MONOCYTES % 6.6 % (4.4-11.3); NEUTROPHILS # (AUTO) 9.9 (2.1-6.9); NEUTROPHILS % 83.1 % (38.7-80.0); PLATELET COUNT 468 x10e3/uL (140-360); RED BLOOD COUNT 3.68 x10e6/uL (4.3-5.7); RED CELL DISTRIBUTION WIDTH 14.6 % (11.7-14.4)
[2019-10-12] MEDS ORDERED: OXYMETAZOLINE HCL 0.05% NAS 1 SPRAY BTL ONE (12:00)
[2019-10-12] MEDS ORDERED: LEVOFLOXACIN 250 MG TAB PO ONE (12:00)
--- OUTSIDE RECORDS SUMMARY | 2019-10-12 12:02 | XMS REPORT | Continuity of Care Document ---
Author Author [facility] t Organization [facility] Address 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 [employer] Name Role Phone Genesis MALDONADO PCP CYNDI GARCIA Attphysalvador Unavailable Payers Payer Name Policy Type Policy Number Effective Date Expiration Date Salvador acharya [facility] [id number] 2019 00:00:00 [facility] [id number] 2018 00:00:00 [facility] Cdc Review Covid19 [id number] [facility] Problems Condition Name Condition Details Condition Category Status Onset Date Resolution Date Last Treatment Date Treating Clinician Comments Source Problem Condition Active [facility] Allergies, Adverse Reactions, Alerts Allergy Name Allergy Type Status Severity Reaction(s) Onset Date Inacti ve Date Treating Clinician Comments Source Penicillin Allergy to substance Active Severe RASH, FEVER, FA INTING 2019-08-01 00:00:00 [facility] Penicillins DA Active U 2019-05-12 00:00:00 [facility] Penicillins DA Active U 2008-09-23 00:00:00 [facility] No Known Drug Intolerances DA Active U 2008-09-22 00:00:0 0 [facility] Social History Social Habit Start Date Stop Date Quantity Comments Source Sex Assigned At 1945 00:00:00 1945 00:[birth year]:00 Male [facility] Medications Ordered Medication Name Filled Medication Name Start Date Stop Da te Current Medication? Ordering Clinician Indication Dosage Frequency Signature (SIG) Comments Components Source Insulin Degludec (Tresiba Flextouch U-100) 100 Unit/1 Ml INSULN.PEN Insulin Degludec (Tresiba Flextouch U-100) 100 Unit/1 Ml INSULN.PEN Yes 35 Bedtime [facility] Levocetirizine Dihydrochloride Levocetirizine Dihydrochloride Yes 5 Daily [facility] Levofloxacin Levofloxacin Yes 250 Daily [facility] Metformin Hcl Metformin Hcl Yes 500 Twice A Day [facility] Metoprolol Succinate Metoprolol Succinate Yes 25 Daily [facility] Pantoprazole Sodium (Protonix) 40 Mg TABLET. Pantopr azole Sodium (Protonix) 40 Mg TABLET. Yes 40 Daily [facility] Valsartan (Diovan) 80 Mg TAB Valsartan (Diovan) 80 Mg TAB 2019-08-03 00:00:00 No 25 Bedtime [facility] Vital Signs Vital Name Observation Time Observation Value Comments Source Body Temperature 2019-08-07 11:40:00 98.2 [degF] [facility] Weight 2019-08-03 11:38:00 182.05 [lb_av] [facility] BMI (Body Mass Index) 2019-08-03 11:38:00 31.2 kg/m2 [facility] Procedures Procedure Date / Time Performed Performing Clinician [facility] e X-ray of chest, two views 2019-07-29 00:00:00 [facility] Plan of Care Planned Activity Planned Date Details Comments Source Instructions Hematuria - Male [facility] Encounters Start Date/Time End Date/Time Encounter Type Admission Type Attendi [facility] Care Department Encounter ID Source 2019-08-03 09:04:00 2019-08-07 11:57:00 Discharged Inpatient 3 CYNDI GARCIA [facility] [id number] [facility] Results Test Description Test Time Test Comments Results Result Comments Source Capillary blood glucose measurement by glucometer (mas s/volume) 2019-08-07 10:48:00 Test Item Bedside Glucose (test code = 38157-8) 207 70-120 Meter ID: [id number] or plasma sodium measurement (moles/volume)2019-08-07 05:10:00* Test Item Value Reference Range Interpretation Comments Sodium Level (test code = 2951-2) 138 136-145 [facility] ([facility]oles/volume)2019-08-07 05:10:00* Test Item Value Reference Range Interpretation Comments Potassium Level (test code = 2823-3) 3.8 3.5-5.1 [facility] chloride measurement (moles/volume)2019-08-07 05:10:00* Test Item Value Reference Range Interpretation Comments Chloride Level (test code = 2075-0) 116 98-107 [facility] carbon dioxide, total measurement (moles/volume)2019-08-07 05:10:00* Test Item Value Reference Range Interpretation Comments Carbon Dioxide Level (test code = 2028-9) 16 22-29 [facility] anion [id number] 05:10:00* Test Item Value Reference Range Interpretation Comments Anion Gap (test code = 44629-6) 9.8 8-16 [facility] urea nitrogen measurement (mass/volume)2019-08-07 05:10:00* Test Item Value Reference Range Interpretation Comments Blood Urea Nitrogen (test code = 3094-0) 16 7-26 [facility] creatinine measurement (mass/volume)2019-08-07 05:10:00* Test Item Value Reference Range Interpretation Comments Creatinine (test code = 2160-0) 1.18 0.72-1.25 [facility] urea nitrogen/creatinine mass [id number] 05:10:00* Test Item Value Reference Range Interpretation Comments BUN/Creatinine Ratio (test code = 3097-3) 14 6-25 [facility] filtration rate (GFR) jjpijvoryryox1585-92-36 05:10:00* Test Item Value Reference Range Interpretation Comments Estimat Glomerular Filtration Rate (test code = 274390053) 60 >60 Ranges were taken from the National Kidney Disease Education Program and the [facility] Foundation literature.Reference ranges:60 or greater: Vqyagj64-13 ( for 3 consecutive months): Chronic kidney disease 15 or less: Kidney failureCHRISTUS Saint Michael HospitalGlucose jrwwmeejjar4554-43-55 05:10:00* Test Item Value Reference Range Interpretation Comments Glucose Level (test code = VOY9368) 91 74-118 [facility] calcium measurement (mass/volume)2019-08-07 05:10:00* Test Item Value Reference Range Interpretation Comments Calcium Level (test code = 61854-2) 7.6 8.4-10.2 [facility] leukocytes automated count (number/volume)2019-08-05 04:40:00* Test Item Value Reference Range Interpretation Comments White Blood Count (test code = 6690-2) 9.31 4.8-10.8 [facility] erythrocytes automated count (number/volume)2019-08-05 04:40:00* Test Item Value Reference Range Interpretation Comments Red Blood Count (test code = 789-8) 4.02 4.3-5.7 [facility] hemoglobin measurement (moles/volume)2019-08-05 04:40:00* Test Item Value Reference Range Interpretation Comments Hemoglobin (test code = 14524-3) 10.7 14.0-18.0 [facility] HospitalAutomated blood hematocrit (volume fraction)2019-08-05 04:40:00* Test Item Value Reference Range Interpretation Comments Hematocrit (test code = 4544-3) 35.1 38.2-49.6 [facility] HospitalAutomated erythrocyte mean corpuscular xrqxgx0553-69-73 04:40:00* Test Item Value Reference Range Interpretation Comments Mean Corpuscular Volume (test code = 787-2) 87.3 81-99 [facility] HospitalAutom[facility] erythrocyte mean corpuscular hemoglobin (mass per erythrocyte)2019-08-05 04:40:00* Test Item Value Reference Range Interpretation Comments Mean Corpuscular Hemoglobin (test code = 785-6) 26.6 28-32 [facility] erythrocyte mean corpuscular hemoglobin concentration measurement (mass/volume)2019-08-05 04:40:00* Test Item Value Reference Range Interpretation Comments Mean Corpuscular Hemoglobin Concent (test code = 786-4) 30.5 31-35 [facility] HospitalRDW CwrGd-Bfy3432-83-26 04:40:00* Test Item Value Reference Range Interpretation Comments Red Cell Distribution Width (test code = 72666-8) 15.1 11.7 -14.4 [facility] HospitalAutom[facility] blood platelet count (count/volume)2019-08-05 04:40:00* Test Item Value Reference Range Interpretation Comments Platelet Count (test code = 777-3) 263 140-360 [facility] HospitalAutom[facility] blood segmented neutrophil count as percentage of total bswnmtrrcb2722-24-20 04:40:00* Test Item Value Reference Range Interpretation Comments Neutrophils (%) (Auto) (test code = 52234-6) 61.4 38.7-80.0 [facility] HospitalAutom[facility] blood lymphocyte count as percentage ot total kenkxpxrqw7112-21-40 04:40:00* Test Item Value Reference Range Interpretation Comments Lymphocytes (%) (Auto) (test code = 736-9) 22.9 18.0-39.1 [facility] HospitalAutomated blood monocyte count as percentage of total zmmfmgzbsc5359-80-55 04:40:00* Test Item Value Reference Range Interpretation Comments Monocytes (%) (Auto) (test code = 5905-5) 13.0 4.4-11.3 [facility] HospitalAutom[facility] blood eosinophil count as percentage of total nnycdozbao6771-02-81 04:40:00* Test Item Value Reference Range Interpretation Comments Eosinophils (%) (Auto) (test code = 713-8) 1.7 0.0-6.0 [facility] HospitalAutomated blood basophil count as percentage of total mhrigzktue6255-16-95 04:40:00* Test Item Value Reference Range Interpretation Comments Basophils (%) (Auto) (test code = 706-2) 0.6 0.0-1.0 [facility] HospitalFluoroscopic procedure less than one hour tptxsfzi6015-75-31 04:40:00* Test Item Value Reference Range Interpretation Comments IM GRANULOCYTES % (test code = IM GRANULOCYTES %) 0.4 0.0- 1.0 [facility] Hospital[facility] blood neutrophil count 2019-08-05 04:40:00* Test Item Value Reference Range Interpretation Comments Neutrophils # (Auto) (test code = 751-8) 5.7 2.1-6.9 [facility] lymphocytes count (number/volume) 2019-08-05 04:40:00* Test Item Value Reference Range Interpretation Comments Lymphocytes # (Auto) (test code = 24963-4) 2.1 1.0-3.2 [facility]Blood monocytes automated count (number/volume)2019-08-05 04:40:00* Test Item Value Reference Range Interpretation Comments Monocytes # (Auto) (test code = 742-7) 1.2 0.2-0.8 [facility] HospitalAutomated blood eosinophil count 2019-08-05 04:40:00* Test Item Value Reference Range Interpretation Comments Eosinophils # (Auto) (test code = 711-2) 0.2 0.0-0.4 [facility] HospitalAutomated blood basophil count (count/volume)2019-08-05 04:40:00* Test Item Value Reference Range Interpretation Comments Basophils # (Auto) (test code = 704-7) 0.1 0.0-0.1 [facility] HospitalFluoroscopic procedure less than one hour pdsvzbra3115-79-04 04:40:00* Test Item Value Reference Range Interpretation Comments Absolute Immature Granulocyte (auto (jose t code = Absolute Immature Granulocyte (auto) 0.04 0-0.1 [facility] magnesium measurement (mass/volume)2019-08-03 09:42:00* Test Item Value Reference Range Interpretation Comments Magnesium Level (test code = 73261-6) 1.9 1.3-2.1 [facility] HospitalFluoroscopic procedure less than one hour ytwigvly0495-49-15 15:25:00* Test Item Value Reference Range Interpretation [...] complexity tests.Testing performed by [facility] [id number] [place], [place] [phone] Director: Mitchel Barba M.D.CLIA # [id number] [facility] 2 DHXVX1992-19-84 14:54:00 [place] [address] Patient Name: PEDRO JEFFERY MR #: [id number] : 1945 Age/Sex: 74/M Req #: [id number] Adm Physician: Ordered by: CYNDI GARCIA MD Report #: [id number] Location: OR Room/Bed: Procedure: [id number] DX/CHEST 2 EWS Exam Date: 07/29/19 Exam [...] on 07/29/194 COPY TO: CYNDI GARCIA MD [id number] 11:10:00* Test Item Value Reference Range Interpretation Comments GLUBED (test code = GLUBED) 246 mg/dL 74-106 H Performed by certified knife machine operator at [facility] WREKWS2421-14-58 07:52:00* Test Item Value Reference Range Interpretation Comments GLUBED (test code = GLUBED) 119 mg/dL 74-106 H Performed by certified knife machine operator at [facility] EBZUDR1820-55-37 21:38:00* Test Item Value Reference Range Interpretation Comments GLUBED (test code = GLUBED) 225 mg/dL 74-106 H Performed by certified knife machine operator at [facility] AZNSRM8294-67-14 20:17:00* Test Item Value Reference Range Interpretation Comments GLUBED (test code = GLUBED) 230 mg/dL 74-106 H Performed by certified knife machine operator at [facility] GALMFM9248-50-26 17:30:00* Test Item Value Reference Range Interpretation Comments GLUBED (test code = GLUBED) 154 mg/dL 74-106 H Performed [facility] certified knife machine [facility]Notified Nurse~ [id number] 11:00:00* Test Item Value Reference Range Interpretation Comments GLUBED (test code = GLUBED) 110 mg/dL 74-106 H Performed by certified knife machine operator at [facility] [id number] 08:39:00* Test Item Value Reference Range Interpretation Comments GLUBED (test code = GLUBED) 111 mg/dL 74-106 H Performed by certified knife machine operator at [facility] COMPREHENSIVE METABOLIC [id number] 05:30:00* Test Item Value Reference Range Interpretation [...] due to change in reagent. COMPREHENSIVE METABOLIC [id number] 05:21:00* Test Item Value Reference Range Interpretation [...] code = ALKP) IUnit/L 45-117 CBC W/AUTO [id number] 04:57:00* Test Item Value Reference Range Interpretation [...] DIFF REQUIRED (test code = MDIFF) NO [id number] 19:59:00* Test Item Value Reference Range Interpretation Comments GLUBED (test code = GLUBED) 230 mg/dL 74-106 H Performed by certified knife machine operator at [facility] LHXMHW8464-07-15 16:50:00* Test Item Value Reference Range Interpretation Comments GLUBED (test code = GLUBED) 145 mg/dL 74-106 H Performed by certified knife machine operator at [facility] VMJIRT7291-64-28 12:20:00* Test Item Value Reference Range Interpretation Comments GLUBED (test code = GLUBED) 193 mg/dL 74-106 H Performed by certified knife machine operator at [facility] [id number] 08:12:00* Test Item Value Reference Range Interpretation Comments GLUBED (test code = GLUBED) 132 mg/dL 74-106 H Performed by certified knife machine operator at [facility] COMPREHENSIVE METABOLIC [id number] 06:00:00* Test Item Value Reference Range Interpretation [...] reference range due to change in reagent. [id number] 06:00:00* Test Item Value Reference Range Interpretation Comments LIPASE (test code = LIP) 565 U/L 73.0-393.0 H COMPREHENSIVE METABOLIC [id number] 05:50:00* Test Item Value Reference Range Interpretation [...] TOTAL (test code = ALKP) IUnit/L 45-117 [id number] 05:50:00* Test Item Value Reference Range Interpretation Comments LIPASE (test code = LIP) U/L 73.0-393.0 CBC W/AUTO [id number] 05:31:00* Test Item Value Reference Range Interpretation [...] DIFF REQUIRED (test code = MDIFF) NO [id number] 20:18:00* Test Item Value Reference Range Interpretation Comments GLUBED (test code = GLUBED) 119 mg/dL 74-106 H Performed by certified knife machine operator at [facility] [id number] 17:21:00* Test Item Value Reference Range Interpretation Comments GLUBED (test code = GLUBED) 233 mg/dL 74-106 H Performed by certified knife machine operator at [facility] [id number] 12:23:00* Test Item Value Reference Range Interpretation Comments GLUBED (test code = GLUBED) 93 mg/dL 74-106 N Performed by certified knife machine operator at [facility] [id number] 08:38:00* Test Item Value Reference Range Interpretation Comments GLUBED (test code = GLUBED) 212 mg/dL 74-106 H Performed by certified knife machine operator at [facility] [id number] 20:13:00* Test Item Value Reference Range Interpretation Comments GLUBED (test code = GLUBED) 129 mg/dL 74-106 H Performed by certified knife machine operator at [facility] [id number] 16:02:00* Test Item Value Reference Range Interpretation Comments GLUBED (test code = GLUBED) 100 mg/dL 74-106 N Performed by certified knife machine operator at [facility] [id number] 11:28:00* Test Item Value Reference Range Interpretation Comments GLUBED (test code = GLUBED) 275 mg/dL 74-106 H Performed by certified knife machine operator at [facility] [id number] 08:00:00* Test Item Value Reference Range Interpretation Comments GLUBED (test code = GLUBED) 121 mg/dL 74-106 H Performed by certified knife machine operator at [facility] COMPREHENSIVE METABOLIC [id number] 05:08:00* Test Item Value Reference Range Interpretation [...] due to change in reagent. COMPREHENSIVE METABOLIC [id number] 05:03:00* Test Item Value Reference Range Interpretation [...] code = ALKP) IUnit/L 45-117 CBC W/AUTO [id number] 04:40:00* Test Item Value Reference Range Interpretation [...] DIFF REQUIRED (test code = MDIFF) NO [id number] 20:56:00* Test Item Value Reference Range Interpretation Comments GLUBED (test code = GLUBED) 175 mg/dL 74-106 H Performed by certified knife machine operator at [facility] [id number] 16:50:00* Test Item Value Reference Range Interpretation Comments GLUBED (test code = GLUBED) 188 mg/dL 74-106 H Performed by certified knife machine operator at [facility] [id number] 11:09:00* Test Item Value Reference Range Interpretation Comments GLUBED (test code = GLUBED) 166 mg/dL 74-106 H Performed by certified knife machine operator at [facility] [id number] 08:38:00* Test Item Value Reference Range Interpretation Comments GLUBED (test code = GLUBED) 81 mg/dL 74-106 N Performed by certified knife machine operator at [facility] COMPREHENSIVE METABOLIC [id number] 05:32:00* Test Item Value Reference Range Interpretation [...] RELATED TO RISK LEVELS ASRECOMMENDED BY THE PAT. HEART, LUNG, AND BLOOD INST. HDL CHOLESTEROL (test code = HDL) 72 mg/dL 40-60 H LIPOPROTEIN LDL (test code = LDL) 61 mg/dL 100-129 L Reference Interval: mg/dL mmol/L Optimal <100 <2.6Near/above optimal 100-129 2.6- 3.3Borderline High 130-159 3.4-4.1High 160-189 4.1-4.9Very High >=190 >=4.9========= This LDL result is a direct measurement.========= [id number] 05:32:00* Test Item Value Reference Range Interpretation Comments LIPASE (test code = LIP) 856 U/L 73.0-393.0 H [id number] 05:12:00* Test Item Value Reference Range Interpretation Comments GLYCOSYLATED HEMOGLOBIN (HA1C) (test code = GLYHGB) 8.0 % HbA1 SUGGESTED DIAGNOSIS: HbA1C (%) Diabetic >6.4Prediabetes 5.7 - 6.4Normal <5.7 ESTIMATED AVERAGE GLUCOSE (test code = EAG) 183 MG/DL COMPREHENSIVE METABOLIC [id number] 05:02:00* Test Item Value Reference Range Interpretation [...] LDL (test code = LDL) mg/dL 100-129 [id number] 05:02:00* Test Item Value Reference Range Interpretation Comments LIPASE (test code = LIP) U/L 73.0-393.0 CBC W/AUTO [id number] 04:49:00* Test Item Value Reference Range Interpretation [...] code = NRBC#) 0.00 K/mm3 0.0-0.1 N [id number] 20:15:00* Test Item Value Reference Range Interpretation Comments GLUBED (test code = GLUBED) 140 mg/dL 74-106 H Performed by certified knife machine operator at [facility] [id number] 16:21:00* Test Item Value Reference Range Interpretation Comments GLUBED (test code = GLUBED) 105 mg/dL 74-106 N Performed by certified knife machine operator at [facility] [id number] 12:18:00* Test Item Value Reference Range Interpretation Comments GLUBED (test code = GLUBED) 214 mg/dL 74-106 H Performed by certified knife machine operator at [facility] [id number] 08:29:00* Test Item Value Reference Range Interpretation Comments GLUBED (test code = GLUBED) 85 mg/dL 74-106 N Performed by certified knife machine operator at [facility] CBC W/AUTO [id number] 06:36:00* Test Item Value Reference Range Interpretation [...] = MDIFF) NO, ONLY SCAN NEEDED DIFFERENTIAL [id number] 06:36:00* Test Item Value Reference Range Interpretation Comments STAIN ACCEPTABILITY (test code = STN ACCEPTABLE) STAIN ACCEPTABLE MORPHOLOGY COMMENT (test code = MOC) NORMAL PLATELET ESTIMATE (test code = PLTEST) ADEQUATE PLATELET MORPHOLOGY (test code = PLTMORPH) NORMAL COMPREHENSIVE METABOLIC [id number] 06:17:00* Test Item Value Reference Range Interpretation [...] reference range due to change in reagent. [id number] 06:17:00* Test Item Value Reference Range Interpretation Comments LIPASE (test code = LIP) 1148 U/L 73.0-393.0 H CBC W/AUTO [id number] 05:48:00* Test Item Value Reference Range Interpretation [...] = MDIFF) NO, ONLY SCAN NEEDED DIFFERENTIAL [id number] 05:48:00* Test Item Value Reference Range Interpretation Comments STAIN ACCEPTABILITY (test code = STN ACCEPTABLE) CABOT RINGS (test code = CAB) MORPHOLOGY COMMENT (test code = MOC) PLATELET ESTIMATE (test code = PLTEST) PLATELET MORPHOLOGY (test code = PLTMORPH) CBC W/AUTO [id number] 05:48:00* Test Item Value Reference Range Interpretation [...] = MDIFF) NO, ONLY SCAN NEEDED DIFFERENTIAL [id number] 05:48:00* Test Item Value Reference Range Interpretation Comments STAIN ACCEPTABILITY (test code = STN ACCEPTABLE) CABOT RINGS (test code = CAB) MORPHOLOGY COMMENT (test code = MOC) PLATELET ESTIMATE (test code = PLTEST) PLATELET MORPHOLOGY (test code = PLTMORPH) CBC W/AUTO [id number] 05:48:00* Test Item Value Reference Range Interpretation [...] = MDIFF) NO, ONLY SCAN NEEDED DIFFERENTIAL [id number] 05:48:00* Test Item Value Reference Range Interpretation Comments STAIN ACCEPTABILITY (test code = STN ACCEPTABLE) MORPHOLOGY COMMENT (test code = MOC) PLATELET ESTIMATE (test code = PLTEST) PLATELET MORPHOLOGY (test code = PLTMORPH) CBC W/AUTO [id number] 05:48:00* Test Item Value Reference Range Interpretation [...] = MDIFF) NO, ONLY SCAN NEEDED DIFFERENTIAL [id number] 05:48:00* Test Item Value Reference Range Interpretation Comments STAIN ACCEPTABILITY (test code = STN ACCEPTABLE) CABOT RINGS (test code = CAB) MORPHOLOGY COMMENT (test code = MOC) PLATELET ESTIMATE (test code = PLTEST) PLATELET MORPHOLOGY (test code = PLTMORPH) - RETROPERITONEAL [id number] 00:11:00 Name: PEDRO JEFFERY [facility] : 1945 Age/S: 73 / M [address] Unit #: [id number] Loc: [place] [address] Phys: Isai Larsen MD Acct: [id number] Dis Date: Status: ADM IN PHONE #: [phone] Exam Date: 05/12/2019 2790 FAX #: [phone] Reason: avtar EXAMS: CPT CODE: [id number] US RETROPERITONEAL COM [id number] LOCATION: H43 EXAM: - US RETROPERITONEAL COM [...] 1 Signed Report (CONTINUED) Name: PEDRO JEFFERY [facility] : 1945 Age/S: 73 / M [address] [facility] Unit #: [id number] Loc: [place] [address] Phys: Isai Larsen MD Acct: [id number] Dis Date: Status: ADM IN PHONE #: [phone] Exam Date: 2019 9197 FAX #: [phone] Reason: avtar EXAMS: CPT CODE: [id number] US RETROPERITONEAL COM 767 70 <Continued> CC: Isai Larsen MD Technologist: Jeaneth Fraser RDMS Trnscb Date/Time: 05/13/2019 (001) [email or web address] Orig Print D/T: S: 05/13/2019 (0014) Probe: PAGE 2 Signed Report URINALYSIS [id number] 16:19:00* Test Item Value Reference Range Interpretation [...] AMORU) FEW #/LPF Urine Source? Clean CatchURINALYSIS [id number] 16:19:00* Test Item Value Reference Range Interpretation [...] Source? Clean Catch- CT ABD PELVIS W/O [id number] 14:14:00 Name: PEDRO JEFFERY [facility] : 1945 Age/S: 73 / M [address] Unit #: [id number] Loc: [facility] [address] Phys: Jacobo Moreno DO Acct: [id number] Di s Date: Status: REG ER PHONE #: Exam Date: 05/12/2019 6232 FAX #: Reason: pain EXAMS: CPT CODE: [id number] CT ABD PELVIS W/O CONT 29877 HISTORY: Pain and dysuria . COMPARISON: CT scan from October 05, 2008 and September 22, 2008. Location: [facility]. CT abdomen and pelvis: Stone protocol. Automated [...] 1 Signed Report (CONTINUED) Name: PEDRO JEFFERY [facility] : 1945 Age/S: 73 / M [address] [facility]: [id number] Loc: [facility] [place] [address] Phys: Jacobo Moreno DO Acct: [id number] Dis Date: Status: REG ER PHONE #: [phone] Exam Date: 05/12/2019 13 55 FAX #: [phone] Reason: pain EXAMS: CPT CODE: [id number] CT ABD PELVIS W/O CONT 05728 <Continued> Bilateral moderate hydroureteronephrosis with marked distention [...] (1414) [email or web address] Orig Print D/T: S: 05/12/2019 (5727) PAGE 2 Signed Report BASIC METABOLIC PANEL [...] CA) 8.2 mg/dL 8.5-10.1 L HEPATIC FUNCTION [id number] 13:28:00* Test Item Value Reference Range Interpretation [...] reference range due to change in reagent. [id number] 13:28:00* Test Item Value Reference Range Interpretation Comments LIPASE (test code = LIP) 1336 U/L 73.0-393.0 H [id number]-[id number] 13:28:00* Test Item Value Reference Range Interpretation Comments TROPONIN-I (test code = TROPI) <0.015 ng/mL 0-0.045 N CBC W/O [id number] 13:08:00* Test Item Value Reference Range Interpretation [...] = MPV) 9.6 fL 6.7-11.0 N Urine Shqegrp8575-71-58 09:16:35* Test Item Value Reference Range Interpretation [...] Negative Staphylococcus C Urine Added by [id number]_INDTroponin [id number] 04:51:28* Test Item Value Reference Range Interpretation [...] a diagnosis of chronic myocardial injury. Urinalysis Rjgbccryzbd3028-71-55 03:27:55* Test Item Value Reference Range Interpretation Comments UA WBC (test code = UA WBC) 0-5 0-5 UA RBC (test code = UA RBC) 0-5 0-5 UA Bacteria (test code = UA Bacteria) Moderate A UA Squam Epithelial (test code = UA Squam Epithelial) 6-10 A UA Mucous (test code = UA Mucous) Few A Urine Drug [id number] 02:41:40* Test Item Value Reference Range Interpretation [...] test if desired. Urinalysis with Culture, if dxtgujrze2356-47-08 02:37:00* Test Item Value Reference Range Interpretation [...] Ind?) Indicated Not Indicate d A Troponin [id number] 00:16:53* Test Item Value Reference Range Interpretation [...] myocardial injury. CT Abdomen and Pelvis w/o Ndwuliiv6632-94-63 23:45:59Patient: PEDRO JEFFERY Date/Time05/06/2019 22:50 CDTReason for [...] Signature): 05/06/2019 11:4 5 pmProthrombin Time and [id number] 22:33:32* Test Item Value Reference Range Interpretation Comments Prothrombin Time (test code = Prothrombin Time) 12.8 seconds 9.8-13 .4 INR (test code = INR) 1.1 ratio 0.6-1.2 Partial Thromboplastin Ucpy2430-85-02 22:33:32* Test Item Value Reference Range Interpretation Comments Partial Thromboplastin Time (test code = Partial Throm boplastin Time) 29.80 seconds 24.39-37.25 XR Chest 1 View Kimwnrq6133-23-15 22:32:19Patient: PEDRO JEFFERY Date/Time05/06/2019 19:26 CDTReason for ExamChest painReportLocation: [id number] X-RAY: AP frontal film of the chest, [...] JARRETTictated DT/TM: 05/06/2019 10:31 pmSigned by: MD Derian, Maxine MSigned (Electronic Signature): 05/06/2019 10:32 pmLipase Level 2019-05-06 21:18:24* Test Item Value Reference Range Interpretation Comments Lipase Level (test code = Lipase Level) 410 U/L 13-60 H Troponin [id number] 21:12:53* Test Item Value Reference Range Interpretation [...] a diagnosis of chronic myocardial injury. Creatine Nmpjgz5334-10-81 21:11:04* Test Item Value Reference Range Interpretation Comments CK (test code = CK) 1516 U/L 39-308 H Creatine Kinase MB ewaapgqg4185-36-26 21:11:04* Test Item Value Reference Range Interpretation Comments CKMB (test code = CKMB) 23.7 ng/mL 0.0-4.9 H CKMB % (test code = CKMB %) 1.6 % 0.0-3.4 Alcohol [id number] 21:11:04* Test Item Value Reference Range Interpretation Comments Ethanol Level (test code = Ethanol Level) 0.29 g/dL 0.00-0.01 H Intoxicated 0.080 g/dL or more Ethanol Inst (test code = Ethanol Inst) 291 N Comprehensive Metabolic [id number] 21:11:03* Test Item Value Reference Range Interpretation [...] A/G Ratio) 1.3 ratio N Comprehensive Metabolic Xbbrv1164-25-15 21:11:03* Test Item Value Reference Range Interpretation [...] is not provided, and the patient is -[place], multiply by 1.212. If sex is not [...] the [employer], http://nkdep.nih.gov Comprehensive Metabolic Ievtt0100-40-28 21:11:03* Test Item Value Reference Range Interpretation [...] is not provided, and the patient is -[place], multiply by 1.212. If sex is not [...] is not provided, and the patient is -[place], multiply by 1.212. If sex is not [...] Kidney Foundation, http://nkdep.nih.gov Complete Blood Count with Caounfbrzlhm4349-34-60 20:39:53* Test Item Value Reference Range Interpretation [...] code = IPF) 0 % N Automated Azpzwvtxpbkd7662-68-66 20:39:53* Test Item Value Reference Range Interpretation Comments Neutro Auto (test code = Neutro Auto) 74.7 % 36.0-70.0 H Lymph Auto (test code = Lymph Auto) 15.2 % 12.0-44.0 Irion Auto (test code = Irion Auto) 9.3 % 0.0-11.0 Eos, Auto (test code = Eos, Auto) 0.0 % 0.0-7.0 Basophil Auto (test code = Basophil Auto) 0.5 % 0.0-2.0 Neutro Absolute (test code = Neutro Absolute) 7.8 x10 1.6-7.4 H Lymph Absolute (test code = Lymph Absolute) 1.59 x10 .50-4.60 Irion Absolute (test code = Irion Absolute) .97 x10 .00-1.20 Eos Absolute (test code = Eos Absolute) 0.00 x10 0.00-0.74 Baso Absolute (test code = Baso Absolute) 0.05 x10 0.00-0.21 IG [id number] 20:39:53* Test Item Value Reference Range Interpretation Comments IG (test code = IG) 0.3 % 0.0-5.0 IG Abs (test code = IG Abs) 0 x10 N
[2019-10-12 12:11] LABS: ALBUMIN 3.7 g/dL (3.5-5.0); ALBUMIN/GLOBULIN RATIO 0.8 (0.8-2.0); ANION GAP 18.1 mmol/L (8-16); CALCIUM 8.7 mg/dL (8.4-10.2); CREATININE, SERUM 2.28 mg/dL (0.72-1.25); POTASSIUM 4.1 mmol/L (3.5-5.1)
[2019-10-12] MEDS ORDERED: PIPERACILLIN/TAZO 4.5 GM 100 ML IV SCH (13:35)
--- OUTSIDE RECORDS SUMMARY | 2019-10-12 13:41 | XMS REPORT | Continuity of Care Document ---
Author Author [facility] t Organization [facility] Address 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 Name Role Phone Genesis MALDONADO PCP CYNDI GARCIA Attphysalvador Unavailable Payers Payer Name Policy Type Policy Number Effective Date Expiration Date Salvador acharya [facility] [id number] 2019 00:00:00 [facility] [id number] 2018 00:00:00 [facility] Cdc Review Covid19 [id number] [facility] Problems Condition Name Condition Details Condition Category Status Onset Date Resolution Date Last Treatment Date Treating Clinician Comments Source Problem Condition Active [facility] Allergies, Adverse Reactions, Alerts Allergy Name Allergy Type Status Severity Reaction(s) Onset Date Inacti ve Date Treating Clinician Comments Source Penicillin Allergy to substance Active Severe RASH, FEVER, FA INTING 2019-08-01 00:00:00 [facility] Penicillins DA Active U 2019-05-12 00:00:00 [facility] Penicillins DA Active U 2008-09-23 00:00:00 [facility] No Known Drug Intolerances DA Active U 2008-09-22 00:00:0 0 [facility] Social History Social Habit Start Date Stop Date Quantity Comments Source Sex Assigned At 1945 00:00:00 1945 00:00:00 Male [facility] Medications Ordered Medication Name Filled Medication Name Start Date Stop Da te Current Medication? Ordering Clinician Indication Dosage Frequency Signature (SIG) Comments Components Source Insulin Degludec (Tresiba Flextouch U-100) 100 Unit/1 Ml INSULN.PEN Insulin Degludec (Tresiba Flextouch U-100) 100 Unit/1 Ml INSULN.PEN Yes 35 Bedtime [facility] Levocetirizine Dihydrochloride Levocetirizine Dihydrochloride Yes 5 Daily [facility] Levofloxacin Levofloxacin Yes 250 Daily [facility] Metformin Hcl Metformin Hcl Yes 500 Twice A Day [facility] Metoprolol Succinate Metoprolol Succinate Yes 25 Daily [facility] Pantoprazole Sodium (Protonix) 40 Mg TABLET. Pantopr azole Sodium (Protonix) 40 Mg TABLET. Yes 40 Daily [facility] Valsartan (Diovan) 80 Mg TAB Valsartan (Diovan) 80 Mg TAB 2019-08-03 00:00:00 No 25 Bedtime [facility] Vital Signs Vital Name Observation Time Observation Value Comments Source Body Temperature 2019-08-07 11:40:00 98.2 [degF] [facility] Weight 2019-08-03 11:38:00 182.05 [lb_av] [facility] BMI (Body Mass Index) 2019-08-03 11:38:00 31.2 kg/m2 [facility] Procedures Procedure Date / Time Performed Performing Clinician [facility] e X-ray of chest, two views 2019-07-29 00:00:00 [facility] Plan of Care Planned Activity Planned Date Details Comments Source Instructions Hematuria - Male [facility] Encounters Start Date/Time End Date/Time Encounter Type Admission Type Attendi [facility] Care Department Encounter ID Source 2019-08-03 09:04:00 2019-08-07 11:57:00 Discharged Inpatient 3 CYNDI GARCIA [facility] [id number] [facility] Results Test Description Test Time Test Comments Results Result Comments Source Capillary blood glucose measurement by glucometer (mas s/volume) 2019-08-07 10:48:00 Test Item Bedside Glucose (test code = 58629-9) 207 70-120 Meter ID: [id number]. [facility] or plasma sodium measurement (moles/volume)2019-08-07 05:10:00* Test Item Value Reference Range Interpretation Comments Sodium Level (test code = 2951-2) 138 136-145 [facility] potassium measurement (moles/volume)2019-08-07 05:10:00* Test Item Value Reference Range Interpretation Comments Potassium Level (test code = 2823-3) 3.8 3.5-5.1 [facility] chloride measurement (moles/volume)2019-08-07 05:10:00* Test Item Value Reference Range Interpretation Comments Chloride Level (test code = 2075-0) 116 98-107 [facility] carbon dioxide, total measurement (moles/volume)2019-08-07 05:10:00* Test Item Value Reference Range Interpretation Comments Carbon Dioxide Level (test code = 2028-9) 16 22-29 [facility] anion [id number] 05:10:00* Test Item Value Reference Range Interpretation Comments Anion Gap (test code = 73541-6) 9.8 8-16 [facility] plasma urea nitrogen measurement (mass/volume)2019-08-07 05:10:00* Test Item Value Reference Range Interpretation Comments Blood Urea Nitrogen (test code = 3094-0) 16 7-26 [facility] plasma creatinine measurement (mass/volume)2019-08-07 05:10:00* Test Item Value Reference Range Interpretation Comments Creatinine (test code = 2160-0) 1.18 0.72-1.25 [facility] plasma urea nitrogen/creatinine mass [id number] 05:10:00* Test Item Value Reference Range Interpretation Comments BUN/Creatinine Ratio (test code = 3097-3) 14 6-25 [facility] glomerular filtration rate (GFR) ioecfpwgpsokl6015-25-23 05:10:00* Test Item Value Reference Range Interpretation Comments Estimat Glomerular Filtration Rate (test code = 056710438) 60 >60 Ranges were taken from the National Kidney Disease Education Program and the [facility] literature.Reference ranges:60 or greater: Kontbl82-40 ( for 3 consecutive months): Chronic kidney disease 15 or less: Kidney failureAdventHealth Central TexasGlucose byhwnwganby7390-41-71 05:10:00* Test Item Value Reference Range Interpretation Comments Glucose Level (test code = HQY6938) 91 74-118 [facility] plasma calcium measurement (mass/volume)2019-08-07 05:10:00* Test Item Value Reference Range Interpretation Comments Calcium Level (test code = 25267-5) 7.6 8.4-10.2 [facility] leukocytes automated count (number/volume)2019-08-05 04:40:00* Test Item Value Reference Range Interpretation Comments White Blood Count (test code = 6690-2) 9.31 4.8-10.8 [facility] erythrocytes automated count (number/volume)2019-08-05 04:40:00* Test Item Value Reference Range Interpretation Comments Red Blood Count (test code = 789-8) 4.02 4.3-5.7 [facility] hemoglobin measurement (moles/volume)2019-08-05 04:40:00* Test Item Value Reference Range Interpretation Comments Hemoglobin (test code = 67839-9) 10.7 14.0-18.0 [facility] TexasAutomated blood hematocrit (volume fraction)2019-08-05 04:40:00* Test Item Value Reference Range Interpretation Comments Hematocrit (test code = 4544-3) 35.1 38.2-49.6 [facility] TexasAutomated erythrocyte mean corpuscular ilqfxq9411-04-99 04:40:00* Test Item Value Reference Range Interpretation Comments Mean Corpuscular Volume (test code = 787-2) 87.3 81-99 [facility] TexasAutomated erythrocyte mean corpuscular hemoglobin (mass per erythrocyte)2019-08-05 04:40:00* Test Item Value Reference Range Interpretation Comments Mean Corpuscular Hemoglobin (test code = 785-6) 26.6 28-32 [facility] TexasAutomated erythrocyte mean corpuscular hemoglobin concentration measurement (mass/volume)2019-08-05 04:40:00* Test Item Value Reference Range Interpretation Comments Mean Corpuscular Hemoglobin Concent (test code = 786-4) 30.5 31-35 [facility] TexasRDW UomPw-Aea4808-58-26 04:40:00* Test Item Value Reference Range Interpretation Comments Red Cell Distribution Width (test code = 98411-1) 15.1 11.7 -14.4 [facility] TexasAutomated blood platelet count (count/volume)2019-08-05 04:40:00* Test Item Value Reference Range Interpretation Comments Platelet Count (test code = 777-3) 263 140-360 [facility] TexasAutomated blood segmented neutrophil count as percentage of total xznhbcxbhj7101-64-18 04:40:00* Test Item Value Reference Range Interpretation Comments Neutrophils (%) (Auto) (test code = 86212-2) 61.4 38.7-80.0 [facility] TexasAutomated blood lymphocyte count as percentage ot total fgyukuxpau5997-87-15 04:40:00* Test Item Value Reference Range Interpretation Comments Lymphocytes (%) (Auto) (test code = 736-9) 22.9 18.0-39.1 [facility] TexasAutomated blood monocyte count as percentage of total nlmczsdcle7138-11-94 04:40:00* Test Item Value Reference Range Interpretation Comments Monocytes (%) (Auto) (test code = 5905-5) 13.0 4.4-11.3 [facility] TexasAutomated blood eosinophil count as percentage of total eqswdmbfmn4534-14-34 04:40:00* Test Item Value Reference Range Interpretation Comments Eosinophils (%) (Auto) (test code = 713-8) 1.7 0.0-6.0 [facility] TexasAutomated blood basophil count as percentage of total neetylcgam4694-41-81 04:40:00* Test Item Value Reference Range Interpretation Comments Basophils (%) (Auto) (test code = 706-2) 0.6 0.0-1.0 [facility] TexasFluoroscopic procedure less than one hour gkevqtcj8116-35-75 04:40:00* Test Item Value Reference Range Interpretation Comments IM GRANULOCYTES % (test code = IM GRANULOCYTES %) 0.4 0.0- 1.0 [facility] TexasAutomated blood neutrophil count 2019-08-05 04:40:00* Test Item Value Reference Range Interpretation Comments Neutrophils # (Auto) (test code = 751-8) 5.7 2.1-6.9 [facility] TexasBlood lymphocytes count (number/volume) 2019-08-05 04:40:00* Test Item Value Reference Range Interpretation Comments Lymphocytes # (Auto) (test code = 07664-6) 2.1 1.0-3.2 [facility] TexasBlood monocytes automated count (number/volume)2019-08-05 04:40:00* Test Item Value Reference Range Interpretation Comments Monocytes # (Auto) (test code = 742-7) 1.2 0.2-0.8 [facility] TexasAutomated blood eosinophil count 2019-08-05 04:40:00* Test Item Value Reference Range Interpretation Comments Eosinophils # (Auto) (test code = 711-2) 0.2 0.0-0.4 [facility] TexasAutomated blood basophil count (count/volume)2019-08-05 04:40:00* Test Item Value Reference Range Interpretation Comments Basophils # (Auto) (test code = 704-7) 0.1 0.0-0.1 [facility] TexasFluoroscopic procedure less than one hour cxvshkqc3116-49-22 04:40:00* Test Item Value Reference Range Interpretation Comments Absolute Immature Granulocyte (auto (jose t code = Absolute Immature Granulocyte (auto) 0.04 0-0.1 [facility] or plasma magnesium measurement (mass/volume)2019-08-03 09:42:00* Test Item Value Reference Range Interpretation Comments Magnesium Level (test code = 50333-0) 1.9 1.3-2.1 [facility] TexasFluoroscopic procedure less than one hour yhzcjneo5470-74-35 15:25:00* Test Item Value Reference Range Interpretation [...] complexity tests.Testing performed by [facility] [id number] [place], [place] [phone] Director: Mitchel Barba M.D.CLIA # [id number] [facility] 2 DNPLD4880-17-06 14:54:00 [place] [address] Patient Name: PEDRO JEFFERY MR #: [id number] : 1945 Age/Sex: 74/M Req #: [id number] Adm Physician: Ordered by: CYNDI GARCIA MD Report #: [id number] Location: OR Room/Bed: Procedure: [id number] DX/CHEST 2 EWS Exam Date: 07/29/19 Exam [...] on 07/29/194 COPY TO: CYNDI GARCIA MD QKSMGI5385-04-92 11:10:00* Test Item Value Reference Range Interpretation Comments GLUBED (test code = GLUBED) 246 mg/dL 74-106 H Performed by certified dam operator at [facility] GEGAVL5185-72-25 07:52:00* Test Item Value Reference Range Interpretation Comments GLUBED (test code = GLUBED) 119 mg/dL 74-106 H Performed by certified dam operator at [facility] MQOFKJ8703-87-93 21:38:00* Test Item Value Reference Range Interpretation Comments GLUBED (test code = GLUBED) 225 mg/dL 74-106 H Performed by certified dam operator at [facility] FMLWLM1178-17-46 20:17:00* Test Item Value Reference Range Interpretation Comments GLUBED (test code = GLUBED) 230 mg/dL 74-106 H Performed by certified dam operator at [facility] XGEVMP2582-16-26 17:30:00* Test Item Value Reference Range Interpretation Comments GLUBED (test code = GLUBED) 154 mg/dL 74-106 H [facility] operator [facility] CenterNotified Nurse~ VZLGCQ0013-53-44 11:00:00* Test Item Value Reference Range Interpretation Comments GLUBED (test code = GLUBED) 110 mg/dL 74-106 H Performed by certified dam operator at [facility] WOFKJE8826-53-61 08:39:00* Test Item Value Reference Range Interpretation Comments GLUBED (test code = GLUBED) 111 mg/dL 74-106 H Performed by certified dam operator at [facility] COMPREHENSIVE METABOLIC QTTPY6982-70-55 05:30:00* Test Item Value Reference Range Interpretation [...] due to change in reagent. COMPREHENSIVE METABOLIC [id number] 05:21:00* Test Item Value Reference Range Interpretation [...] code = ALKP) IUnit/L 45-117 CBC W/AUTO [id number] 04:57:00* Test Item Value Reference Range Interpretation [...] DIFF REQUIRED (test code = MDIFF) NO [id number] 19:59:00* Test Item Value Reference Range Interpretation Comments GLUBED (test code = GLUBED) 230 mg/dL 74-106 H Performed by certified dam operator at [facility] QCCJMM7216-36-87 16:50:00* Test Item Value Reference Range Interpretation Comments GLUBED (test code = GLUBED) 145 mg/dL 74-106 H Performed by certified dam operator at [facility] EUFAZK7526-30-04 12:20:00* Test Item Value Reference Range Interpretation Comments GLUBED (test code = GLUBED) 193 mg/dL 74-106 H Performed by certified dam operator at [facility] [id number] 08:12:00* Test Item Value Reference Range Interpretation Comments GLUBED (test code = GLUBED) 132 mg/dL 74-106 H Performed by certified dam operator at [facility] COMPREHENSIVE METABOLIC [id number] 06:00:00* Test Item Value Reference Range Interpretation [...] reference range due to change in reagent. [id number] 06:00:00* Test Item Value Reference Range Interpretation Comments LIPASE (test code = LIP) 565 U/L 73.0-393.0 H COMPREHENSIVE METABOLIC [id number] 05:50:00* Test Item Value Reference Range Interpretation [...] TOTAL (test code = ALKP) IUnit/L 45-117 [id number] 05:50:00* Test Item Value Reference Range Interpretation Comments LIPASE (test code = LIP) U/L 73.0-393.0 CBC W/AUTO [id number] 05:31:00* Test Item Value Reference Range Interpretation [...] DIFF REQUIRED (test code = MDIFF) NO [id number] 20:18:00* Test Item Value Reference Range Interpretation Comments GLUBED (test code = GLUBED) 119 mg/dL 74-106 H Performed by certified dam operator at [facility] [id number] 17:21:00* Test Item Value Reference Range Interpretation Comments GLUBED (test code = GLUBED) 233 mg/dL 74-106 H Performed by certified dam operator at [facility] [id number] 12:23:00* Test Item Value Reference Range Interpretation Comments GLUBED (test code = GLUBED) 93 mg/dL 74-106 N Performed by certified dam operator at [facility] [id number] 08:38:00* Test Item Value Reference Range Interpretation Comments GLUBED (test code = GLUBED) 212 mg/dL 74-106 H Performed by certified dam operator at [facility] CQCPBE5071-70-29 20:13:00* Test Item Value Reference Range Interpretation Comments GLUBED (test code = GLUBED) 129 mg/dL 74-106 H Performed by certified dam operator at [facility] [id number] 16:02:00* Test Item Value Reference Range Interpretation Comments GLUBED (test code = GLUBED) 100 mg/dL 74-106 N Performed by certified dam operator at [facility] [id number] 11:28:00* Test Item Value Reference Range Interpretation Comments GLUBED (test code = GLUBED) 275 mg/dL 74-106 H Performed by certified dam operator at [facility] [id number] 08:00:00* Test Item Value Reference Range Interpretation Comments GLUBED (test code = GLUBED) 121 mg/dL 74-106 H Performed by certified dam operator at [facility] COMPREHENSIVE METABOLIC [id number] 05:08:00* Test Item Value Reference Range Interpretation [...] due to change in reagent. COMPREHENSIVE METABOLIC [id number] 05:03:00* Test Item Value Reference Range Interpretation [...] code = ALKP) IUnit/L 45-117 CBC W/AUTO [id number] 04:40:00* Test Item Value Reference Range Interpretation [...] DIFF REQUIRED (test code = MDIFF) NO [id number] 20:56:00* Test Item Value Reference Range Interpretation Comments GLUBED (test code = GLUBED) 175 mg/dL 74-106 H Performed by certified dam operator at [facility] [id number] 16:50:00* Test Item Value Reference Range Interpretation Comments GLUBED (test code = GLUBED) 188 mg/dL 74-106 H Performed by certified dam operator at [facility] [id number] 11:09:00* Test Item Value Reference Range Interpretation Comments GLUBED (test code = GLUBED) 166 mg/dL 74-106 H Performed by certified dam operator at [facility] [id number] 08:38:00* Test Item Value Reference Range Interpretation Comments GLUBED (test code = GLUBED) 81 mg/dL 74-106 N Performed by certified dam operator at [facility] COMPREHENSIVE METABOLIC [id number] 05:32:00* Test Item Value Reference Range Interpretation [...] This LDL result is a direct measurement.========= [id number] 05:32:00* Test Item Value Reference Range Interpretation Comments LIPASE (test code = LIP) 856 U/L 73.0-393.0 H [id number] 05:12:00* Test Item Value Reference Range Interpretation Comments GLYCOSYLATED HEMOGLOBIN (HA1C) (test code = GLYHGB) 8.0 % HbA1 SUGGESTED DIAGNOSIS: HbA1C (%) Diabetic >6.4Prediabetes 5.7 - 6.4Normal <5.7 ESTIMATED AVERAGE GLUCOSE (test code = EAG) 183 MG/DL COMPREHENSIVE METABOLIC [id number] 05:02:00* Test Item Value Reference Range Interpretation [...] LDL (test code = LDL) mg/dL 100-129 [id number] 05:02:00* Test Item Value Reference Range Interpretation Comments LIPASE (test code = LIP) U/L 73.0-393.0 CBC W/AUTO [id number] 04:49:00* Test Item Value Reference Range Interpretation [...] code = NRBC#) 0.00 K/mm3 0.0-0.1 N [id number] 20:15:00* Test Item Value Reference Range Interpretation Comments GLUBED (test code = GLUBED) 140 mg/dL 74-106 H Performed by certified dam operator at [facility] [id number] 16:21:00* Test Item Value Reference Range Interpretation Comments GLUBED (test code = GLUBED) 105 mg/dL 74-106 N Performed by certified dam operator at [facility] [id number] 12:18:00* Test Item Value Reference Range Interpretation Comments GLUBED (test code = GLUBED) 214 mg/dL 74-106 H Performed by certified dam operator at [facility] [id number] 08:29:00* Test Item Value Reference Range Interpretation Comments GLUBED (test code = GLUBED) 85 mg/dL 74-106 N Performed by certified dam operator at [facility] CBC W/AUTO [id number] 06:36:00* Test Item Value Reference Range Interpretation [...] = MDIFF) NO, ONLY SCAN NEEDED DIFFERENTIAL [id number] 06:36:00* Test Item Value Reference Range Interpretation Comments STAIN ACCEPTABILITY (test code = STN ACCEPTABLE) STAIN ACCEPTABLE MORPHOLOGY COMMENT (test code = MOC) NORMAL PLATELET ESTIMATE (test code = PLTEST) ADEQUATE PLATELET MORPHOLOGY (test code = PLTMORPH) NORMAL COMPREHENSIVE METABOLIC [id number] 06:17:00* Test Item Value Reference Range Interpretation [...] reference range due to change in reagent. [id number] 06:17:00* Test Item Value Reference Range Interpretation Comments LIPASE (test code = LIP) 1148 U/L 73.0-393.0 H CBC W/AUTO [id number] 05:48:00* Test Item Value Reference Range Interpretation [...] = MDIFF) NO, ONLY SCAN NEEDED DIFFERENTIAL [id number] 05:48:00* Test Item Value Reference Range Interpretation Comments STAIN ACCEPTABILITY (test code = STN ACCEPTABLE) CABOT RINGS (test code = CAB) MORPHOLOGY COMMENT (test code = MOC) PLATELET ESTIMATE (test code = PLTEST) PLATELET MORPHOLOGY (test code = PLTMORPH) CBC W/AUTO [id number] 05:48:00* Test Item Value Reference Range Interpretation [...] = MDIFF) NO, ONLY SCAN NEEDED DIFFERENTIAL [id number] 05:48:00* Test Item Value Reference Range Interpretation Comments STAIN ACCEPTABILITY (test code = STN ACCEPTABLE) CABOT RINGS (test code = CAB) MORPHOLOGY COMMENT (test code = MOC) PLATELET ESTIMATE (test code = PLTEST) PLATELET MORPHOLOGY (test code = PLTMORPH) CBC W/AUTO [id number] 05:48:00* Test Item Value Reference Range Interpretation [...] = MDIFF) NO, ONLY SCAN NEEDED DIFFERENTIAL [id number] 05:48:00* Test Item Value Reference Range Interpretation Comments STAIN ACCEPTABILITY (test code = STN ACCEPTABLE) MORPHOLOGY COMMENT (test code = MOC) PLATELET ESTIMATE (test code = PLTEST) PLATELET MORPHOLOGY (test code = PLTMORPH) CBC W/AUTO [id number] 05:48:00* Test Item Value Reference Range Interpretation [...] = MDIFF) NO, ONLY SCAN NEEDED DIFFERENTIAL [id number] 05:48:00* Test Item Value Reference Range Interpretation Comments STAIN ACCEPTABILITY (test code = STN ACCEPTABLE) CABOT RINGS (test code = CAB) MORPHOLOGY COMMENT (test code = MOC) PLATELET ESTIMATE (test code = PLTEST) PLATELET MORPHOLOGY (test code = PLTMORPH) - RETROPERITONEAL [id number] 00:11:00 Name: PEDRO JEFFERY [facility] : 1945 Age/S: 73 / M [address] Unit #: [id number] Loc: [place] [address] Phys: Isai Larsen MD Acct: [id number] Dis Date: Status: ADM IN PHONE #: [phone] Exam Date: 05/12/2019 1957 FAX #: [phone] Reason: avtar EXAMS: CPT CODE: [id number] US RETROPERITONEAL COM 76320 LOCATION: H43 EXAM: - US RETROPERITONEAL COM [...] 1 Signed Report (CONTINUED) Name: PEDRO JEFFERY [facility] : 1945 Age/S: 73 / M [address] [facility] Unit #: [id number] Loc: [place] [address] Phys: Isai Larsen MD Acct: [id number] Dis Date: Status: ADM IN PHONE #: [phone] Exam Date: 2019 6979 FAX #: [phone] Reason: avtar EXAMS: CPT CODE: [id number] US RETROPERITONEAL COM 767 70 <Continued> CC: Isai Larsen MD Technologist: Jeaneth Fraser RDMS Trnscb Date/Time: 05/13/2019 (001) t.FLYNNRIvanNS15 Orig Print D/T: S: 05/13/2019 (0014) Probe: PAGE 2 Signed Report URINALYSIS [id number] 16:19:00* Test Item Value Reference Range Interpretation [...] AMORU) FEW #/LPF Urine Source? Clean CatchURINALYSIS [id number] 16:19:00* Test Item Value Reference Range Interpretation [...] Source? Clean Catch- CT ABD PELVIS W/O [id number] 14:14:00 Name: PEDRO JEFFERY [facility] : 1945 Age/S: 73 / M [address] Unit #: [id number] Loc: [place] [address] Phys: Jacobo Moreno DO Acct: [id number] Di s Date: Status: REG ER PHONE #: Exam Date: 05/12/2019 4251 FAX #: Reason: pain EXAMS: CPT CODE: [id number] CT ABD PELVIS W/O CONT 90178 HISTORY: Pain and dysuria . COMPARISON: CT scan from October 05, 2008 and September 22, 2008. Location: [facility]. CT abdomen and pelvis: Stone protocol. Automated [...] 1 Signed Report (CONTINUED) Name: PEDRO JEFFERY [facility] : 1945 Age[facility]S: 73 [facility] [address] [facility]: [id number] Loc: [place] [address] Phys: Jacobo Moreno DO Acct: [id number] Dis Date: Status: REG ER PHONE #: [phone] Exam Date: 05/12/2019 13 55 FAX #: [phone] Reason: pain EXAMS: CPT CODE: [id number] CT ABD PELVIS W/O CONT 11539 <Continued> Bilateral moderate hydroureteronephrosis with marked distention [...] (1414) t.FLYNNR.TH4 Orig Print D/T: S: 05/12/2019 (2017) PAGE 2 Signed Report BASIC METABOLIC PANEL [...] CA) 8.2 mg/dL 8.5-10.1 L HEPATIC FUNCTION [id number] 13:28:00* Test Item Value Reference Range Interpretation [...] reference range due to change in reagent. [id number] 13:28:00* Test Item Value Reference Range Interpretation Comments LIPASE (test code = LIP) 1336 U/L 73.0-393.0 H [id number] 13:28:00* Test Item Value Reference Range Interpretation Comments TROPONIN-I (test code = TROPI) <0.015 ng/mL 0-0.045 N CBC W/O [id number] 13:08:00* Test Item Value Reference Range Interpretation [...] = MPV) 9.6 fL 6.7-11.0 N Urine [id number] 09:16:35* Test Item Value Reference Range Interpretation [...] Negative Staphylococcus C Urine Added by [id number] [id number] 04:51:28* Test Item Value Reference Range Interpretation [...] a diagnosis of chronic myocardial injury. Urinalysis [id number] 03:27:55* Test Item Value Reference Range Interpretation Comments UA WBC (test code = UA WBC) 0-5 0-5 UA RBC (test code = UA RBC) 0-5 0-5 UA Bacteria (test code = UA Bacteria) Moderate A UA Squam Epithelial (test code = UA Squam Epithelial) 6-10 A UA Mucous (test code = UA Mucous) Few A Urine Drug [id number] 02:41:40* Test Item Value Reference Range Interpretation [...] test if desired. Urinalysis with Culture, if [id number] 02:37:00* Test Item Value Reference Range Interpretation [...] Ind?) Indicated Not Indicate d A Troponin [id number] 00:16:53* Test Item Value Reference Range Interpretation [...] myocardial injury. CT Abdomen and Pelvis w/o [id number] 23:45:59Patient: PEDRO JEFFERY Date/Time05/06/2019 22:50 CDTReason for [...] Signature): 05/06/2019 11:4 5 pmProthrombin Time and [id number] 22:33:32* Test Item Value Reference Range Interpretation Comments Prothrombin Time (test code = Prothrombin Time) 12.8 seconds 9.8-13 .4 INR (test code = INR) 1.1 ratio 0.6-1.2 Partial Thromboplastin [id number] 22:33:32* Test Item Value Reference Range Interpretation Comments Partial Thromboplastin Time (test code = Partial Throm boplastin Time) 29.80 seconds 24.39-37.25 XR Chest 1 View [id number] 22:32:19Patient: PEDRO JEFFERY Date/Time05/06/2019 19:26 CDTReason for ExamChest painReportLocation: [id number] X-RAY: AP frontal film of the chest, [...] Lipase Level) 410 U/L 13-60 H Troponin [id number] 21:12:53* Test Item Value Reference Range Interpretation [...] a diagnosis of chronic myocardial injury. Creatine [id number] 21:11:04* Test Item Value Reference Range Interpretation Comments CK (test code = CK) 1516 U/L 39-308 H Creatine Kinase MB [id number] 21:11:04* Test Item Value Reference Range Interpretation Comments CKMB (test code = CKMB) 23.7 ng/mL 0.0-4.9 H CKMB % (test code = CKMB %) 1.6 % 0.0-3.4 Alcohol [id number] 21:11:04* Test Item Value Reference Range Interpretation Comments Ethanol Level (test code = Ethanol Level) 0.29 g/dL 0.00-0.01 H Intoxicated 0.080 g/dL or more Ethanol Inst (test code = Ethanol Inst) 291 N Comprehensive Metabolic [id number] 21:11:03* Test Item Value Reference Range Interpretation [...] A/G Ratio) 1.3 ratio N Comprehensive Metabolic [id number] 21:11:03* Test Item Value Reference Range Interpretation [...] is not provided, and the patient is -Latvian, multiply by 1.212. If sex is not [...] the National Kidney Foundation, http://nkdep.nih.gov Comprehensive Metabolic [id number] 21:11:03* Test Item Value Reference Range Interpretation [...] is not provided, and the patient is -Latvian, multiply by 1.212. If sex is not [...] is not provided, and the patient is -Latvian, multiply by 1.212. If sex is not [...] Kidney Foundation, http://nkdep.nih.gov Complete Blood Count with [id number] 20:39:53* Test Item Value Reference Range Interpretation [...] code = IPF) 0 % N Automated [id number] 20:39:53* Test Item Value Reference Range Interpretation Comments Neutro Auto (test code = Neutro Auto) 74.7 % 36.0-70.0 H Lymph Auto (test code = Lymph Auto) 15.2 % 12.0-44.0 [place] Auto (test code = [place] Auto) 9.3 % 0.0-11.0 Eos, Auto (test code = Eos, Auto) 0.0 % 0.0-7.0 Basophil Auto (test code = Basophil Auto) 0.5 % 0.0-2.0 Neutro Absolute (test code = Neutro Absolute) 7.8 x10 1.6-7.4 H Lymph Absolute (test code = Lymph Absolute) 1.59 x10 .50-4.60 [place] Absolute (test code = [place] Absolute) .97 x10 .00-1.20 Eos Absolute (test code = Eos Absolute) 0.00 x10 0.00-0.74 Baso Absolute (test code = Baso Absolute) 0.05 x10 0.00-0.21 IG [id number] 20:39:53* Test Item Value Reference Range Interpretation Comments IG (test code = IG) 0.3 % 0.0-5.0 IG Abs (test code = IG Abs) 0 x10 N
[2019-10-12] MEDS ORDERED: FENTANYL CITRATE/PF 100MCG/2 ML INJ IV ONE (14:15)
--- NOTE | 2019-10-12 15:15 | NUR ---
PT RECEIVED FROM ER. ORLY3. EDUCATED PT ABOUT FALL PRECAUTIONS. PT VERBALIZED UNDERSTANDING. CALL LIGHT WITH IN EASY REACH. BED IS LOW AND LOCKED. SIDE RAILS X2. ALL SAFETY MEASURES IN PLACE. PT DENIES NEEDS AT THIS TIME.
[2019-10-12 15:57] VITALS: BP 166/66
[2019-10-12 16:00] VITALS: BP 166/66
--- NOTE | 2019-10-12 16:00 | NUR ---
PAGED DR. PEDERSEN AND REPORTED PT BLOOD SUGAR 202 AND BP 166/66.
--- NOTE | 2019-10-12 16:05 | NUR ---
PT HOME MEDS RECONFIRMED WITH FAMILY . PT DAUGHTER TIM RECONFIRMED.
[2019-10-12] MEDS ORDERED: ATORVASTATIN CA40 MG PO (16:08)
[2019-10-12] MEDS ORDERED: LOSARTAN-HCTZ1 EAC1 PO (16:08)
[2019-10-12] MEDS ORDERED: NIFEDIPINE ER30 M1 PO (16:08)
[2019-10-12] MEDS ORDERED: METOPROLOL SUCC25 MG PO (16:08)
--- NOTE | 2019-10-12 16:15 | NUR ---
PAGED PHARMACY AND RECONFIRMED PT HOME MEDS. REPORTED THE SAME TO DR. PEDERSEN.
[2019-10-12] MEDS ORDERED: DEXTROSE 50% SYRINGE 50 ML IV PRN (16:30)
[2019-10-12 16:36] VITALS: BP 166/66
[2019-10-12] MEDS: INSULIN LISPRO 100 UNIT/1 ML 3ML VIAL SQ SCH ×2 (16:55→21:05)
[2019-10-12] MEDS: METOPROLOL SUCCINATE 50 MG TAB XL PO SCH (16:59)
[2019-10-12] MEDS: NIFEDIPINE CR 30 MG TAB PO SCH (16:59)
[2019-10-12] MEDS ORDERED: METOPROLOL SUCCINATE 25 MG TAB XL PO SCH (17:00)
[2019-10-12] MEDS ORDERED: ACETAMINOPHEN/CODEINE 300MG - 30MG TAB PO PRN (17:15)
--- NOTE | 2019-10-12 19:15 | NUR ---
RECEIVED BEDSIDE SHIFT REPORT FROM PREVIOUS NURSE. CALL LIGHT WITHIN REACH. PATIENT IN BED.
--- NOTE | 2019-10-12 19:21 | NUR ---
BEDSIDE SHIFT REPORT GIVEN TO THE LUBRICATING SPECIALIST RN. PT DENIED FURTHER NEEDS.
[2019-10-12 19:50] VITALS: BP 166/66
[2019-10-12 20:00] VITALS: BP 147/69
[2019-10-12] MEDS ORDERED: CELECOXIB 100 MG CAP PO SCH (20:15)
--- NOTE | 2019-10-12 20:15 | NUR ---
PATIENT COMPLAINING OF PAIN. CALLED DR. PEDERSEN AND ASKED HIM FOR PAIN MEDICATION. DR. PEDERSEN SAID GIVE CELEBREX 100 MG NOW AND BID.
[2019-10-12 20:30] VITALS: BP 147/69
--- NOTE | 2019-10-12 21:32 | NUR ---
PATIENT COMPLAINING OF DRY THROAT AND STUFFY NOSE THAT IS CAUSING HIM TO HAVE TROUBLE BREATHING. CALLED AND TALKED TO DR. PEDERSEN. DR PEDERSEN ORDERED FLONASE ONE SPRAY BID AND TO CONSULT DR GARCIA THE ENT DOCTOR
[2019-10-12] MEDS: FLUTICASONE PROPIONATE NASAL SPRAY NS SCH (21:51)
[2019-10-12] MEDS ORDERED: BISACODYL 5 MG TAB EC PO PRN (23:00)
[2019-10-12] MEDS: ALBUTEROL/IPRATROPIUM 3 ML NEB NEB SCH (23:00)
[2019-10-12] MEDS ORDERED: ONDANSETRON HCL INJ 2MG/ML 2ML 2 MG/ML VIAL IV PRN (23:00)
[2019-10-12] MEDS ORDERED: ACETAMINOPHEN 325 MG TAB PO PRN (23:00)
[2019-10-12] MEDS ORDERED: ALBUTEROL/IPRATROPIUM 3 ML NEB NEB PRN (23:00)
[2019-10-12] MEDS ORDERED: MAGNESIUM HYDROXIDE 30 ML UDC PO PRN (23:00)
[2019-10-12] MEDS: INSULIN GLARGINE 100 UNITS/ML VIAL SQ SCH (23:35)
[2019-10-12] MEDS: CLINDAMYCIN 300MG 50 ML IV SCH ×2 (23:35→23:54)
[2019-10-12] MEDS: METHYLPREDNISOLONE SOD SUCC 40 MG/ML VIAL 1ML IV SCH (23:35)
[2019-10-12] MEDS: SODIUM CHLORIDE 0.9% 1000ML 1,000 ML IV SCH (23:35)
[2019-10-12] MEDS: MONTELUKAST SODIUM 10 MG TAB PO SCH (23:35)
[2019-10-12] MEDS: AZTREONAM 1 GM/NS 50 ML 50 ML IV SCH (23:36)
[2019-10-13] VITALS (9 sets, daily range): BP systolic 121–142; BP diastolic 50–98
[2019-10-13] MEDS: ALBUTEROL/IPRATROPIUM 3 ML NEB NEB SCH ×4 (00:10→19:25)
[2019-10-13] MEDS: CLINDAMYCIN 300MG 50 ML IV SCH ×3 (05:42→17:00)
[2019-10-13] MEDS: AZTREONAM 1 GM/NS 50 ML 50 ML IV SCH ×3 (06:00→18:00)
--- NOTE | 2019-10-13 06:21 | Diagnostic Imaging Report ---
EXAM: CT Chest WITHOUT contrast INDICATION: ^cough/sob ^[id number] ^[id number] COMPARISON: Chest x-ray dated 07/29/2019 TECHNIQUE: Chest was scanned utilizing a multidetector helical scanner from the lung apex through the level of the adrenal glands without administration of IV contrast. Absence of intravenous contrast decreases sensitivity for detection of lymphadenopathy and vascular pathology. Coronal and sagittal reformations were obtained. Routine protocol was performed. IV CONTRAST: None COMPLICATIONS: None RADIATION DOSE: Total DLP: 569.19 mGy*cm Estimated effective dose: (DLP x 0.014 x size factor) mSv CTDIvol has been reviewed. It is below the limits set by the Radiation Protocol Committee (RPC). FINDINGS: LINES/ TUBES: None. LUNGS AND AIRWAYS: Several bilateral lung nodules, the largest measuring 9 mm in right lung base (series 3, image 90) and paramediastinal left lower lobe (series 3, image 63). Linear anterior left upper lobe opacity (series 3, image 48). Predominantly central bronchial wall thickening with mild lower lobe bronchiectasis. Mild bibasilar subsegmental atelectasis. PLEURA: The pleural spaces are clear. HEART AND MEDIASTINUM: The thyroid gland is normal. No mediastinal, hilar or axillary lymphadenopathy. Calcified subcarinal lymph nodes. The heart is normal in size.. There is no pericardial effusion. Atherosclerotic calcification of aortic arch and coronary arteries. UPPER ABDOMEN: Cholecystectomy. Partially seen atrophic left kidney. BONES: The visualized bony thorax is within normal limits. SOFT TISSUES: Unremarkable. IMPRESSION: 1. Several bilateral lung nodules, measuring up to 9 mm, could be infectious/inflammatory versus metastatic. Recommend short-term follow-up in 3 months to ensure stability. 2. Central bronchial wall thickening as well as mild bronchiectasis, suspicious for bronchitis. 3. Small focal linear anterior left upper lobe opacification, could also represent thickened peripheral bronchial wall. However, developing pneumonia cannot be excluded. Signed by: Dr. Jaycob hCavez MD on 10/13/2019 6:18 AM
--- NOTE | 2019-10-13 07:00 | NUR ---
BEDSIDE SHIFT REPORT RECEIVED FROM THE GRAIN COMBINER RN. EDUCATED PT ABOUT FALL PRECAUTIONS. PT VERBALIZED UNDERSTANDING. CALL LIGHT WITH IN EASY REACH. INSTRUCTED PT TO USE CALL LIGHT FOR ALL THE NEEDS. BED IS LOW AND LOCKED. SIDE RAILS X2. BED ALARM IS ON. PT DENIES NEEDS AT THIS TIME.
[2019-10-13 07:11] LABS: BASOPHILS % 0.1 % (0.0-1.0); EOSINOPHILS % 0.1 % (0.0-6.0); HEMATOCRIT 29.1 % (38.2-49.6); HEMOGLOBIN 9.2 g/dL (14.0-18.0); LYMPHOCYTES # (AUTO) 0.6 (1.0-3.2); LYMPHOCYTES % 3.6 % (18.0-39.1); MEAN CORPUSCULAR HEMOGLOBIN 26.4 pg (28-32); MEAN CORPUSCULAR HGB CONC 31.6 g/dL (31-35); MEAN CORPUSCULAR VOLUME 83.6 fL (81-99); MONOCYTES # (AUTO) 0.3 (0.2-0.8); NEUTROPHILS # (AUTO) 14.7 (2.1-6.9); NEUTROPHILS % 93.6 % (38.7-80.0); PLATELET COUNT 466 x10e3/uL (140-360); RED BLOOD COUNT 3.48 x10e6/uL (4.3-5.7); RED CELL DISTRIBUTION WIDTH 14.7 % (11.7-14.4)
--- NOTE | 2019-10-13 07:27 | Diagnostic Imaging Report ---
History: Sinusitis Comparison studies: None Technique: Axial images were obtained through the paranasal sinuses. Coronal and sagittal images reconstructed from the axial data. Dose modulation, iterative reconstruction, and/or weight based adjustment of the mA/kV was utilized to reduce the radiation dose to as low as reasonably achievable. Radiation dose: Total DLP: 297.16 mGy*cm. Estimated effective dose: DLP x 0.015 Intravenous contrast: None Findings: Paranasal sinuses: Right anterior complex: Frontal sinus: Clear aside from minimal mucosal thickening medially within the sinus. Frontonasal recess: Clear. Anterior ethmoid air cells: Mild scattered mucosal thickening. Ostiomeatal unit: Patent with nonobstructive mucosal thickening at the maxillary ostium. Maxillary sinus: Partially opacified with peripheral mucosal thickening. Left anterior complex: Frontal sinus: Partially opacified inferiorly by mucosal thickening. Frontonasal recess: Opacified. Anterior ethmoid air cells: Partially opacified with scattered mucosal thickening Ostiomeatal unit: Opacified. Maxillary sinus: Mild peripheral mucosal thickening. Posterior complex: Sphenoid sinuses: Minimal scattered mucosal thickening. Sphenoethmoidal recesses: Small in size, narrowed by mucosal thickening Posterior ethmoid air cells: Minimal mucosal thickening on the right. Left ethmoid air cells are partially opacified with mucosal thickening. Nasal cavity: Nonspecific reactive turbinate hypertrophy with scattered secretions present throughout the nasal cavity. The anterosuperior septum is deviated to the patient's left. Other: Agger Nasi: Partially opacified by mucosal thickening bilaterally. Turbinates: Non-aerated bilaterally. Tej cells: None Lamina papyracea: Intact. Cribriform plates: Asymmetric, approximately 5 mm below the level the fovea ethmoidalis on the right. Smooth transition of the left lateral lamella to the left fovea ethmoidalis. Olfactory recesses: Opacified bilaterally. Optic canals: Not dehiscent Sphenoid sinuses: Anatomical variant and [place] cells and the right optic canal partially protrudes into and an [place] cell on the right. The primary sphenoid septum inserts obliquely posteriorly far to the right of midline. The carotid carotid canals are not dehiscent and are from the sphenoid sinuses by thin bony plates. The right anterior client process is partially pneumatized. Dentition: Edentulous maxilla. Multiple mandibular dental caries. Orbits: Left intraocular lens replacement. No other abnormalities. Bones: Chronic mildly depressed bilateral nasal bone fractures. No lytic or blastic lesion. Soft tissues: No inflammatory changes in the retromaxillary or preantral fat or within the pterygopalatine fossa. Temporal bones: Mastoids and middle ear cavities are partially opacified bilaterally. IMPRESSION: 1. Nonspecific rhinosinusitis with scattered sinus mucosal thickening and sinus opacification as described, bilateral reactive nasal turbinate hypertrophy and scattered nasal secretions. 2. Bilateral middle ear mastoid opacification. Signed by: Dr. Jose Alejandro Benson M.D. on 10/13/2019 7:24 AM
--- NOTE | 2019-10-13 07:31 | NUR ---
GAVE BEDSIDE SHIFT REPORT TO ONCOMING NURSE. CALL LIGHT WITHIN REACH. PATIENT IN BED. PATIENT IN NO PAIN. HOURLY ROUNDING PERFORMED
[2019-10-13 07:41] LABS: ALBUMIN 3.5 g/dL (3.5-5.0); ALBUMIN/GLOBULIN RATIO 0.8 (0.8-2.0); ANION GAP 16.4 mmol/L (8-16); CALCIUM 8.7 mg/dL (8.4-10.2); CREATININE, SERUM 1.72 mg/dL (0.72-1.25); POTASSIUM 4.4 mmol/L (3.5-5.1)
[2019-10-13] MEDS: INSULIN LISPRO 100 UNIT/1 ML 3ML VIAL SQ SCH ×7 (08:00→20:15)
[2019-10-13 08:35] LABS: THYROID STIMULATING HORMONE 1.392 uIU/mL (0.350-4.940)
[2019-10-13] MEDS: NIFEDIPINE CR 30 MG TAB PO SCH (08:40)
[2019-10-13] MEDS: FLUTICASONE PROPIONATE NASAL SPRAY NS SCH ×2 (08:40→17:05)
[2019-10-13] MEDS: CELECOXIB 100 MG CAP PO SCH ×2 (08:40→17:05)
[2019-10-13] MEDS: PANTOPRAZOLE SOD 40 MG TABEC PO SCH (08:40)
[2019-10-13] MEDS: METHYLPREDNISOLONE SOD SUCC 40 MG/ML VIAL 1ML IV SCH ×2 (08:40→21:16)
[2019-10-13] MEDS: LORATADINE/PSEUDOEPHEDRINE 24 HR SR TAB PO SCH (08:40)
[2019-10-13] MEDS: SENNOSIDES 8.6 MG TAB PO SCH ×2 (08:40→17:05)
[2019-10-13] MEDS: METOPROLOL SUCCINATE 50 MG TAB XL PO SCH (08:41)
[2019-10-13] MEDS: SALINE 0.65% NAS SOLN 1 SPRAY BTL SCH ×4 (08:59→21:26)
--- NOTE | 2019-10-13 09:00 | NUR ---
OCCULT BLOOD STOOL CONTAINER AT BEDSIDE. PT IS AWARE.
--- NOTE | 2019-10-13 11:12 | History and Physical ---
PRIMARY CARE PHYSICIAN: Dr. Esteban Thayer. SALES LEDGER ADMINISTRATOR: Dr. Dayne Parnell. CHIEF COMPLAINT: Increasing shortness of breath, cough, and sinusitis. HISTORY OF PRESENT ILLNESS: The patient is a 74-year-old male, sent in by his family physician for persistent sinus problem associated with difficulty breathing and with cough and severe pain and CT sinus outpatient show significant sinus opacification associated with infection. This has been going on since September 14, 2019, did not improve. The patient has history of enlarged prostate, diabetes type 2, hypertension. He had a TURP procedure back on August 03, 2019. The patient postoperatively was discharged home. He was stable. He was having some allergy and is coughing now. The patient repeated facial CT scan on admission found that the patient has nonspecific rhinosinusitis with scattered sinus mucosal thickening and sinus opacification. He had bilateral reactive nasal turbinate hypertrophy and scatter nasal secretion. He also had bilateral middle ear mastoid opacification as well. CT of the chest showed that the patient has bilateral several lung nodules measuring up to 9 mm, infectious and inflammatory most likely. There is recommendation for followup in approximately 3 months to ensure stability. He also has some central bronchial wall thickening associated with bronchiectasis. There is also anterior left upper lobe opacification, could be representing pneumonia. The patient is stable. He is started on antibiotics. On admission, his WBC was elevated at 12,000, with steroids, it is 16,000 today. Coronavirus PCR is still pending. The patient is slightly dehydrated with creatinine of 2.8. With rehydration, creatinine is 1.7 today and the patient is doing much better. The patient is otherwise stable. PAST MEDICAL HISTORY: Enlarged prostate, status post TURP; diabetes type 2; hypertension; dyslipidemia SOCIAL HISTORY: The patient does not smoke or use alcohol. No regular drugs. ALLERGIES: PENICILLIN. HOME MEDICATIONS: List is reviewed. The patient is on insulin, Zyrtec, Levaquin, metformin, metoprolol, nifedipine, Protonix, and Lipitor. PHYSICAL EXAMINATION: VITAL SIGNS: Temperature is 98, blood pressure 121/98, pulse rate 97, respirations 18. GENERAL: The patient is not in acute distress. He is awake. HEENT: Normocephalic and atraumatic. Anicteric. NECK: Supple grossly. PULMONARY: Diminished breath sounds bilaterally with courses and wheezing. CARDIOVASCULAR: S1 and S2. Regular rate and rhythm. ABDOMEN: Soft, nontender, nondistention. EXTREMITIES: No cyanosis or edema. NEUROLOGIC: No focal deficit. Sinus evaluation showed sinusitis, tenderness in the sinus area. IMPRESSION: 1. Atypical pneumonia. 2. Pansinusitis. 3. Shortness of breath, cough, and symptoms of upper respiratory infection as mentioned above. 4. Dehydration. PLAN: Antibiotics with Azactam and clindamycin for now since the patient is allergic to penicillin. Continue with home medication with some adjustment. Nebulizer treatment. Generally steroids. Insulin sliding scale coverage, aggressive. Given the patient insulin due to steroids. Continue with the patient's treatment. Discussed with the patient regarding finding on the CT of the chest and the patient will need CT chest repeated approximately 3 months. The patient is otherwise stable. I also asked ENT, Dr. Dayne Parnell to see the patient. The patient is otherwise stable. He is stating that he felt much better, but at the same time, I think this patient will need more than a few days of treatment; therefore, we will admit the patient inpatient to continue with treatment at this time. MD YUNG Good/MARISELA /[id number]
[2019-10-13] MEDS: SODIUM CHLORIDE 0.9% 1000ML 1,000 ML IV SCH ×2 (13:24→19:00)
--- NOTE | 2019-10-13 17:15 | NUR ---
PT STOOL OCCULT BLOOD POSITIVE PER LAB REPORT. INFORMED THE SAME TO DR. PEDERSEN.
--- NOTE | 2019-10-13 19:00 | NUR ---
RECEIVED BEDSIDE SHIFT REPORT FROM PREVIOUS NURSE. CALL LIGHT WITHIN REACH. PATIENT IN BED. PATIENT IN NO PAIN OR DISTRESS
--- NOTE | 2019-10-13 19:00 | NUR ---
BEDSIDE SHIFT REPORT GIVEN TO THE CHIEF INTERNAL AUDITOR RN. PT DENIED FURTHER NEEDS.
--- NOTE | 2019-10-13 19:41 | Consultation ---
DATE OF CONSULTATION: 10/13/2019 Hospital consultation HISTORY OF PRESENT ILLNESS: I was kindly asked to see this 74-year-old man for evaluation of "sinusitis." The patient has a history of nasal congestion, anterior facial pain and pressure. He was treated with two courses of antibiotics prior to his presentation, but continued to have progressive difficulty breathing and nasal congestion. He reports bilateral ear fullness, but he is unable to give additional otologic history. He reports that since admission he has had complete resolution of his facial pain and pressure and is breathing better through his nose. Admission workup demonstrated partial opacification of the paranasal sinuses with no bony erosion. There was also noted to be opacification of the middle ear space bilaterally. His history of present illness, past medical history, and past surgical history was reviewed in detail in the chart. PHYSICAL EXAMINATION: The right external auditory canal was normal. The right pinna was normal. The right tympanic membrane was moderately retracted and hypomobile. There was a dilated blood vessels noted within the tympanic membrane. The left pinna was normal. Left external auditory canal was normal. Left tympanic membrane was immobile with moderate retraction. There was no postauricular pain swelling, erythema, or tenderness. Intranasal examination showed a moderate S shaped nasal septal deviation. There was crusting in the anterior nasal vestibule bilaterally. Intraoral examination was unremarkable. There was mild candidiasis on the dorsum of the tongue. He had minimal postnasal drainage. There was no palpable cervical adenopathy. On fiberoptic diagnostic rhinoscopy, there was crusting in the nasal vestibule noted and thick mucus within the nasal cavity. There were no polyps noted. He had minimal thick mucus of the ostiomeatal complex bilaterally. ASSESSMENT: 1. Chronic allergic rhinosinusitis. 2. Nasal septal deviation. 3. Turbinate hypertrophy. 4. Chronic otitis media with extension into the mastoid, identified on CT scan. PLAN: 1. Addition of heated humidification to oxygen supply. 2. Afrin nasal spray two puffs each side of nose b.i.d. for six doses. 3. Neosporin ointment to each nostril t.i.d. 4. Continuation of fluticasone. 5. Mucinex 1200 mg b.i.d. I will continue to follow with you. Thank you for this consultation. MD RAMONA Camacho/MARISELA /[id number]
[2019-10-13] MEDS ORDERED: GUAIFENESIN 600 MG TAB PO SCH (21:00)
[2019-10-13] MEDS: ATORVASTATIN 40 MG TAB PO SCH (21:16)
[2019-10-13] MEDS: MONTELUKAST SODIUM 10 MG TAB PO SCH (21:16)
[2019-10-13] MEDS: OXYMETAZOLINE HCL 0.05% NAS 1 SPRAY BTL SCH (21:16)
[2019-10-13] MEDS: NEOMYCIN/POLYMYXIN/BACITRACIN 15 GM TUBE TOP SCH (21:16)
--- NOTE | 2019-10-13 21:18 | NUR ---
CALLED DR. PEDERSEN ABOUT PATIENT COMPLAINING OF CHEST PAIN AND WANTING NITRO OR ASPIRIN FOR THE PAIN. DR. PEDERSEN SAID GIVE PAIN MEDICATION BUT NOT NITRO OR ASPIRIN
[2019-10-13] MEDS: HYDROCODONE/APAP 7.5MG-325MG 1 EA TAB PO PRN (21:28)
[2019-10-13] MEDS: INSULIN GLARGINE 100 UNITS/ML VIAL SQ SCH (23:43)
[2019-10-14] VITALS (7 sets, daily range): BP systolic 131–163; BP diastolic 50–98
[2019-10-14] MEDS: CLINDAMYCIN 300MG 50 ML IV SCH ×5 (00:08→18:07)
[2019-10-14] MEDS: AZTREONAM 1 GM/NS 50 ML 50 ML IV SCH ×3 (00:09→17:14)
[2019-10-14] MEDS: ALBUTEROL/IPRATROPIUM 3 ML NEB NEB SCH ×5 (01:45→20:55)
[2019-10-14] MEDS: SALINE 0.65% NAS SOLN 1 SPRAY BTL SCH ×8 (05:59→21:53)
[2019-10-14] MEDS: SODIUM CHLORIDE 0.9% 1000ML 1,000 ML IV SCH ×2 (06:00→09:18)
[2019-10-14 06:27] LABS: BASOPHILS % 0.1 % (0.0-1.0); HEMATOCRIT 24.9 % (38.2-49.6); LYMPHOCYTES # (AUTO) 0.5 (1.0-3.2); LYMPHOCYTES % 4.2 % (18.0-39.1); MEAN CORPUSCULAR HEMOGLOBIN 27.3 pg (28-32); MEAN CORPUSCULAR HGB CONC 32.1 g/dL (31-35); MONOCYTES # (AUTO) 0.3 (0.2-0.8); MONOCYTES % 2.8 % (4.4-11.3); NEUTROPHILS # (AUTO) 10.8 (2.1-6.9); NEUTROPHILS % 92.4 % (38.7-80.0); PLATELET COUNT 525 x10e3/uL (140-360); RED BLOOD COUNT 2.93 x10e6/uL (4.3-5.7); RED CELL DISTRIBUTION WIDTH 15.1 % (11.7-14.4)
[2019-10-14 06:48] LABS: ANION GAP 15.6 mmol/L (8-16); CALCIUM 8.3 mg/dL (8.4-10.2); CREATININE, SERUM 1.48 mg/dL (0.72-1.25); POTASSIUM 4.6 mmol/L (3.5-5.1)
--- NOTE | 2019-10-14 07:23 | NUR ---
GAVE BEDSIDE SHIFT REPORT TO ONCOMING NURSE. CALL LIGHT WITHIN REACH. PATIENT IN BED. HOURLY ROUNDING PERFORMED.
[2019-10-14] MEDS: INSULIN LISPRO 100 UNIT/1 ML 3ML VIAL SQ SCH ×6 (08:30→21:59)
[2019-10-14] MEDS: OXYMETAZOLINE HCL 0.05% NAS 1 SPRAY BTL SCH ×2 (09:29→21:46)
[2019-10-14] MEDS: FLUTICASONE PROPIONATE NASAL SPRAY NS SCH ×2 (09:30→17:14)
[2019-10-14] MEDS: CELECOXIB 100 MG CAP PO SCH ×2 (09:30→17:14)
[2019-10-14] MEDS: LORATADINE/PSEUDOEPHEDRINE 24 HR SR TAB PO SCH (09:31)
[2019-10-14] MEDS: NIFEDIPINE CR 30 MG TAB PO SCH (09:32)
[2019-10-14] MEDS: SENNOSIDES 8.6 MG TAB PO SCH ×2 (09:32→17:14)
[2019-10-14] MEDS: PANTOPRAZOLE SOD 40 MG TABEC PO SCH (09:32)
[2019-10-14] MEDS: METOPROLOL SUCCINATE 50 MG TAB XL PO SCH (09:32)
[2019-10-14] MEDS: NEOMYCIN/POLYMYXIN/BACITRACIN 15 GM TUBE TOP SCH ×3 (09:33→21:52)
[2019-10-14] MEDS: GUAIFENESIN 600 MG TAB PO SCH ×2 (09:43→21:47)
[2019-10-14] MEDS: METHYLPREDNISOLONE SOD SUCC 40 MG/ML VIAL 1ML IV SCH ×2 (09:43→21:46)
[2019-10-14] MEDS ORDERED: INSULIN GLARGINE 100 UNITS/ML VIAL SQ ONE (09:45)
[2019-10-14] MEDS: IRON SUCROSE 100 MG in SODIUM CHLORIDE 0.9% 100 ML 100 ML IV SCH (12:00)
--- NOTE | 2019-10-14 19:11 | NUR ---
BEDSIDE SHIFT REPORT GIVEN TO THE DEPARTMENT CHAIR RN. PT DENIED FURTHER NEEDS.
--- NOTE | 2019-10-14 19:23 | NUR ---
Received change of shift report from AM nurse. Walking rounds completed.
--- NOTE | 2019-10-14 21:00 | NUR ---
Dr Jeffery on the floor to see patient. Patient to have procedure after d/c.
--- NOTE | 2019-10-14 21:33 | NUR ---
Report given to oncoming nurse.
[2019-10-14] MEDS: MONTELUKAST SODIUM 10 MG TAB PO SCH (21:47)
[2019-10-14] MEDS: ATORVASTATIN 40 MG TAB PO SCH (21:47)
[2019-10-14] MEDS: INSULIN GLARGINE 100 UNITS/ML VIAL SQ SCH (21:51)
[2019-10-14 22:03] LABS: FERRITIN 457.84 ng/mL (21.81-274.66)
--- NOTE | 2019-10-14 22:28 | NUR ---
Received patient back from nurse.
[2019-10-15] VITALS (9 sets, daily range): BP systolic 135–155; BP diastolic 59–88
--- NOTE | 2019-10-15 00:04 | Consultation ---
DATE OF CONSULTATION: 10/14/2019 GI Consult Note REASON FOR CONSULT: 1. Anemia of unclear etiology. 2. Fecal occult blood positive. HISTORY OF PRESENT ILLNESS: A 74-year-old speaking male. I derived a history through the electrician. The patient got admitted with chronic allergic rhinosinusitis, turbinate hypertrophy, chronic otitis media, which was not responding to outpatient management. Currently, he is being seen by ENT specialist, Dr. Dayne Parnell. GI is being consulted because a blood work revealed anemia with a hemoglobin of 8.0, MCV 85, and his stool occult blood was noted positive. The patient on further questioning stated that he has never had any upper endoscopy or colonoscopy. He is not on any anticoagulants. No prior history of peptic ulcer disease. Denies any abdominal pain. No chronic use of any NSAIDs. Regular bowel movement, soft brown stool. REVIEW OF SYSTEMS: Twelve point system reviewed. Symptomatology is limited to ENT system. PAST MEDICAL HISTORY: Benign prostatic hypertrophy, type 2 diabetes, hypertension, hyperlipidemia. PAST SURGICAL HISTORY: TURP. FAMILY HISTORY: Noncontributory. SOCIAL HISTORY: No smoking, alcohol, or any illicit drug use. ALLERGIES: PENICILLIN. HOME MEDICATION: Atorvastatin, insulin, levocetirizine, levofloxacin, metformin, metoprolol succinate, nifedipine, pantoprazole. INPATIENT MEDICATION: Reviewed as per APR. PHYSICAL EXAMINATION: VITAL SIGNS: Temperature 97.8, pulse 93, respirations 17, blood pressure 145/98, oxygen saturation 98% on room air. GENERAL: Not in any acute distress. HEENT: Oral mucosa is moist. Anicteric sclerae. CVS: S1-S2 regular. LUNGS: Bilaterally grossly clear. ABDOMEN: Soft, nondistended, nontender. No palpable mass or hernia. Positive bowel sounds. LABORATORY DATA: WBC 11.69 down from 15.69, hematocrit 24.9, hemoglobin 8.0, MCV 85, and platelet count 525. Sodium 138, potassium 4.6, chloride 110, bicarb 17, BUN 34, creatinine 1.48. Liver enzymes were normal. CT of the chest showed, 1. Several bilateral lung nodules measuring up to 9 mm, could be infectious/inflammatory versus metastatic. Recommend short-term followup in 3 months to ensure stability. 2. Central bronchial wall thickening as well as mild bronchiectasis suspicious for bronchitis. 3. Small focal linear anterior left upper lobe opacification could also represent a thickened peripheral bronchial wall. However, developing pneumonia cannot be excluded. IMPRESSION: A 74-year-old male, who got admitted in the hospital with atypical pneumonia, rhinosinusitis. He is currently being treated with broad-spectrum intravenous antibiotic, also being seen by ENT, Dr. Parnell. He was found to be anemic with Hemoccult positive stool. The patient has never had any upper endoscopy or colonoscopy. PLAN: Check iron profile. Continue present medical management for which the patient got admitted. Transfuse if the hemoglobin drops to less than 7. Once the patient is recovered from pneumonia and sialoadenitis, then I will follow him in my office for further evaluation of anemia with heme-positive stool. He will be offered upper endoscopy and colonoscopy electively as an outpatient. I have given the patient my business card. He is going to follow in my office within 1-2 weeks after discharge. I thank Dr. Washington, for allowing me to participate in the care of this patient. Jef Jeffery MD SA/MARISELA /[id number]
[2019-10-15] MEDS: SODIUM CHLORIDE 0.9% 1000ML 1,000 ML IV SCH ×2 (00:40→04:45)
[2019-10-15] MEDS: AZTREONAM 1 GM/NS 50 ML 50 ML IV SCH ×3 (00:43→16:53)
[2019-10-15] MEDS: ALBUTEROL/IPRATROPIUM 3 ML NEB NEB SCH ×4 (00:50→19:25)
--- NOTE | 2019-10-15 05:17 | NUR ---
Patient resting quitly at this time. Continue monitor.
[2019-10-15] MEDS: CLINDAMYCIN 300MG 50 ML IV SCH ×4 (05:42→17:48)
[2019-10-15] MEDS: SALINE 0.65% NAS SOLN 1 SPRAY BTL SCH ×8 (05:43→21:39)
[2019-10-15 06:08] LABS: BASOPHILS % 0.2 % (0.0-1.0); HEMATOCRIT 25.7 % (38.2-49.6); LYMPHOCYTES # (AUTO) 0.8 (1.0-3.2); LYMPHOCYTES % 6.3 % (18.0-39.1); MEAN CORPUSCULAR HGB CONC 31.1 g/dL (31-35); MEAN CORPUSCULAR VOLUME 83.4 fL (81-99); MONOCYTES # (AUTO) 0.4 (0.2-0.8); MONOCYTES % 3.3 % (4.4-11.3); NEUTROPHILS % 89.6 % (38.7-80.0); PLATELET COUNT 501 x10e3/uL (140-360); RED BLOOD COUNT 3.08 x10e6/uL (4.3-5.7); RED CELL DISTRIBUTION WIDTH 15.4 % (11.7-14.4)
[2019-10-15 06:35] LABS: ANION GAP 15.3 mmol/L (8-16); CALCIUM 8.3 mg/dL (8.4-10.2); CREATININE, SERUM 1.21 mg/dL (0.72-1.25); POTASSIUM 4.3 mmol/L (3.5-5.1)
[2019-10-15] MEDS: INSULIN LISPRO 100 UNIT/1 ML 3ML VIAL SQ SCH ×6 (07:30→20:24)
[2019-10-15] MEDS: OXYMETAZOLINE HCL 0.05% NAS 1 SPRAY BTL SCH ×2 (09:12→20:15)
[2019-10-15] MEDS: FLUTICASONE PROPIONATE NASAL SPRAY NS SCH ×2 (09:13→16:53)
[2019-10-15] MEDS: GUAIFENESIN 600 MG TAB PO SCH ×2 (09:14→20:16)
[2019-10-15] MEDS: LORATADINE/PSEUDOEPHEDRINE 24 HR SR TAB PO SCH (09:14)
[2019-10-15] MEDS ORDERED: BENZONATATE 100 MG CAP PO PRN (09:15)
[2019-10-15] MEDS: METOPROLOL SUCCINATE 50 MG TAB XL PO SCH (09:15)
[2019-10-15] MEDS: SENNOSIDES 8.6 MG TAB PO SCH ×2 (09:15→16:53)
[2019-10-15] MEDS: PANTOPRAZOLE SOD 40 MG TABEC PO SCH (09:15)
[2019-10-15] MEDS: NIFEDIPINE CR 30 MG TAB PO SCH (09:15)
[2019-10-15] MEDS: NEOMYCIN/POLYMYXIN/BACITRACIN 15 GM TUBE TOP SCH ×3 (09:52→20:33)
[2019-10-15] MEDS: IRON SUCROSE 100 MG in SODIUM CHLORIDE 0.9% 100 ML 100 ML IV SCH (10:28)
[2019-10-15] MEDS: ISOSORBIDE DINITRATE 20 MG TAB PO SCH ×3 (10:29→20:15)
[2019-10-15] MEDS ORDERED: IOPAMIDOL 370 MG/ML 200 ML INFUS..BTL INJ ONE (13:45)
[2019-10-15] MEDS ORDERED: SODIUM CHLORIDE 0.9% 50ML 50 ML ONE (13:45)
--- NOTE | 2019-10-15 14:51 | Diagnostic Imaging Report ---
EXAM: CT Abdomen and Pelvis WITH contrast INDICATION: ABD PAIN / ANEMIA COMPARISON: None. TECHNIQUE: Abdomen and pelvis were scanned utilizing a multidetector helical scanner from the lung base to the pubic symphysis after administration of IV contrast. Coronal and sagittal reformations were obtained. Dose modulation, iterative reconstruction, and/or weight based adjustment of the mA/kV was utilized to reduce the radiation dose to as low as reasonably achievable. Routine protocol was performed. Scan was performed when during portal venous phase. IV CONTRAST: 150 mL of Omnipaque 300 ORAL CONTRAST: Water COMPLICATIONS: None RADIATION DOSE: Total DLP: 481.4 mGy-cm Estimated effective dose: (DLP x 0.015 x size factor) mSv CTDIvol has been reviewed. It is below the limits set by the Radiation Protocol Committee (RPC). FINDINGS: LINES and TUBES: None. LOWER THORAX: There is bibasilar atelectasis. Pulmonary nodules are better seen on CT chest dated 10/12/2019. HEPATOBILIARY: No focal hepatic lesions. No biliary ductal dilation. GALLBLADDER: There are cholecystectomy clips. SPLEEN: No splenomegaly. No focal splenic lesion. PANCREAS: There is a 0.5 cm low-density lesion in the pancreatic head (series 2, image 34) too small to adequately characterize. No ductal dilatation. ADRENALS: No adrenal nodules KIDNEYS/URETERS: Kidneys enhance symmetrically. No hydronephrosis. No cystic or solid mass lesions. No stones. GI TRACT: No abnormal distention, wall thickening, or evidence of bowel obstruction. PELVIC ORGANS/BLADDER: There is left posterior bladder diverticula. There is prostamegaly with hypertrophy of median lobe extending to the posterior aspect of bladder. LYMPH NODES: No lymphadenopathy. VESSELS: No aortic aneurysm or dissection. PERITONEUM / RETROPERITONEUM: No free air or fluid. BONES: There are degenerative changes in the spine. SOFT TISSUES: Unremarkable. IMPRESSION: 1. A 0.5 cm low-density lesion in the pancreatic head is too small to adequately characterize. MRCP with contrast could be considered for further evaluation. 2. Left posterior bladder diverticula. 3. Prostamegaly with hypertrophy of median lobe extending to the posterior aspect of bladder. Signed by: Oiron Barros MD on 10/15/2019 2:47 PM
[2019-10-15] MEDS: BENZONATATE 100 MG CAP PO SCH ×3 (15:37→23:22)
[2019-10-15] MEDS: MONTELUKAST SODIUM 10 MG TAB PO SCH (20:15)
[2019-10-15] MEDS: ATORVASTATIN 40 MG TAB PO SCH (20:15)
[2019-10-15] MEDS: INSULIN GLARGINE 100 UNITS/ML VIAL SQ SCH (20:33)
[2019-10-15] MEDS: HYDROCODONE/APAP 7.5MG-325MG 1 EA TAB PO PRN (23:22)
[2019-10-16] VITALS (10 sets, daily range): BP systolic 142–175; BP diastolic 59–93
[2019-10-16] MEDS: ALBUTEROL/IPRATROPIUM 3 ML NEB NEB SCH ×4 (00:40→20:15)
[2019-10-16] MEDS: AZTREONAM 1 GM/NS 50 ML 50 ML IV SCH ×3 (01:00→15:56)
[2019-10-16] MEDS: CLINDAMYCIN 300MG 50 ML IV SCH ×5 (02:38→23:31)
[2019-10-16] MEDS: SALINE 0.65% NAS SOLN 1 SPRAY BTL SCH ×8 (05:17→20:29)
[2019-10-16 06:25] LABS: BASOPHILS % 0.1 % (0.0-1.0); EOSINOPHILS # (AUTO) 0.1 (0.0-0.4); EOSINOPHILS % 0.5 % (0.0-6.0); HEMATOCRIT 24.9 % (38.2-49.6); HEMOGLOBIN 7.6 g/dL (14.0-18.0); LYMPHOCYTES # (AUTO) 1.5 (1.0-3.2); LYMPHOCYTES % 14.2 % (18.0-39.1); MEAN CORPUSCULAR HGB CONC 30.5 g/dL (31-35); MEAN CORPUSCULAR VOLUME 85.3 fL (81-99); MONOCYTES # (AUTO) 0.9 (0.2-0.8); MONOCYTES % 8.8 % (4.4-11.3); NEUTROPHILS # (AUTO) 7.9 (2.1-6.9); NEUTROPHILS % 75.4 % (38.7-80.0); PLATELET COUNT 423 x10e3/uL (140-360); RED BLOOD COUNT 2.92 x10e6/uL (4.3-5.7); RED CELL DISTRIBUTION WIDTH 15.5 % (11.7-14.4)
[2019-10-16 06:48] LABS: ANION GAP 12.6 mmol/L (8-16); BLOOD UREA NITROGEN 24 mg/dL (7-26); BUN/CREATININE RATIO 24 (6-25); CALCIUM 8.2 mg/dL (8.4-10.2); CARBON DIOXIDE 17 mmol/L (22-29); CHLORIDE 116 mmol/L (98-107); CREATININE, SERUM 1.02 mg/dL (0.72-1.25); EST GLOMERULAR FILTRATION RATE > 60 ML/MIN (60-); GLUCOSE 60 mg/dL (74-118); POTASSIUM 3.6 mmol/L (3.5-5.1); SODIUM 142 mmol/L (136-145)
[2019-10-16] MEDS: INSULIN LISPRO 100 UNIT/1 ML 3ML VIAL SQ SCH ×7 (07:30→20:03)
--- NOTE | 2019-10-16 07:30 | NUR ---
BS at point of care 50. Given apple juice, cranberry juice, and lowfat milk. Patient drank all three. Awaiting breakfast. C/O headache. Will monitor
[2019-10-16] MEDS: GUAIFENESIN 600 MG TAB PO SCH ×2 (09:01→20:29)
[2019-10-16] MEDS: LORATADINE/PSEUDOEPHEDRINE 24 HR SR TAB PO SCH (09:01)
[2019-10-16] MEDS: FLUTICASONE PROPIONATE NASAL SPRAY NS SCH ×2 (09:01→15:56)
[2019-10-16] MEDS: OXYMETAZOLINE HCL 0.05% NAS 1 SPRAY BTL SCH (09:01)
[2019-10-16] MEDS: ISOSORBIDE DINITRATE 20 MG TAB PO SCH ×3 (09:01→21:44)
[2019-10-16] MEDS: IRON SUCROSE 100 MG in SODIUM CHLORIDE 0.9% 100 ML 100 ML IV SCH (09:02)
[2019-10-16] MEDS: METOPROLOL SUCCINATE 50 MG TAB XL PO SCH (09:02)
[2019-10-16] MEDS: SENNOSIDES 8.6 MG TAB PO SCH ×2 (09:02→15:56)
[2019-10-16] MEDS: PANTOPRAZOLE SOD 40 MG TABEC PO SCH (09:02)
[2019-10-16] MEDS: NIFEDIPINE CR 30 MG TAB PO SCH (09:02)
[2019-10-16] MEDS: NEOMYCIN/POLYMYXIN/BACITRACIN 15 GM TUBE TOP SCH ×3 (09:02→20:29)
[2019-10-16] MEDS: HYDROCODONE/APAP 7.5MG-325MG 1 EA TAB PO PRN ×2 (09:56→20:29)
[2019-10-16] MEDS ORDERED: SODIUM CHLORIDE 0.9% 250ML 250 ML ONE (10:55)
[2019-10-16] MEDS: BENZONATATE 100 MG CAP PO SCH ×2 (15:00→20:29)
[2019-10-16] MEDS ORDERED: GADOBENATE DIMEGLUMINE 1 ML IV ONE (18:30)
--- NOTE | 2019-10-16 20:17 | Diagnostic Imaging Report ---
EXAM: MRI MRCP [facility] DATE: 10/16/2019 6:38 PM INDICATION: Abdominal pain COMPARISON: CT of the abdomen/pelvis dated 10/15/2019 TECHNIQUE: Multiplanar multisequential MRI images of the abdomen were obtained before and after administration of 15 cc of MultiHance. MRCP protocol. FINDINGS: Limited study due to motion artifact. Mild right basilar atelectasis/scarring. No focal hepatic lesions. The gallbladder is surgically absent. No biliary dilatation. Spleen and adrenal glands are unremarkable. Atrophic pancreas. Previously noted pancreatic head low density lesion is not visualized on current exam. No pancreatic ductal dilatation. Atrophic left kidney. No hydronephrosis. No renal mass. Tiny left renal superior pole simple cyst. Visualized bowel loops are unremarkable. No evidence of bowel obstruction. No abdominal lymphadenopathy. 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 Partially seen distended urinary bladder. IMPRESSION: Unremarkable MRCP. No biliary dilatation or choledocholithiasis. Previously noted pancreatic head hypodensity is without corresponding abnormality on current exam. Atrophic left kidney. Signed by: Dr. Jaycob Chavez MD on 10/16/2019 8:14 PM
[2019-10-16] MEDS: INSULIN GLARGINE 100 UNITS/ML VIAL SQ SCH (20:29)
[2019-10-16] MEDS: ATORVASTATIN 40 MG TAB PO SCH (20:29)
[2019-10-16] MEDS: MONTELUKAST SODIUM 10 MG TAB PO SCH (20:29)
[2019-10-17] VITALS: BP_SYST 101; BP_SYST 187; BP_DIAS 59; BP_DIAS 63
[2019-10-17] MEDS: AZTREONAM 1 GM/NS 50 ML 50 ML IV SCH ×2 (00:25→09:20)
[2019-10-17] MEDS: ALBUTEROL/IPRATROPIUM 3 ML NEB NEB SCH ×2 (00:50→08:09)
[2019-10-17] MEDS: HYDROCODONE/APAP 7.5MG-325MG 1 EA TAB PO PRN (02:33)
[2019-10-17 04:00] VITALS: BP 167/66
[2019-10-17] MEDS: CLINDAMYCIN 300MG 50 ML IV SCH (05:59)
[2019-10-17] MEDS: SALINE 0.65% NAS SOLN 1 SPRAY BTL SCH ×3 (06:00→08:47)
[2019-10-17 06:38] LABS: BASOPHILS # (AUTO) 0.1 (0.0-0.1); BASOPHILS % 0.4 % (0.0-1.0); EOSINOPHILS # (AUTO) 0.2 (0.0-0.4); EOSINOPHILS % 1.9 % (0.0-6.0); HEMATOCRIT 28.2 % (38.2-49.6); HEMOGLOBIN 8.6 g/dL (14.0-18.0); LYMPHOCYTES # (AUTO) 1.6 (1.0-3.2); LYMPHOCYTES % 12.5 % (18.0-39.1); MEAN CORPUSCULAR HEMOGLOBIN 25.6 pg (28-32); MEAN CORPUSCULAR HGB CONC 30.5 g/dL (31-35); MEAN CORPUSCULAR VOLUME 83.9 fL (81-99); MONOCYTES # (AUTO) 1.4 (0.2-0.8); MONOCYTES % 10.5 % (4.4-11.3); NEUTROPHILS # (AUTO) 9.4 (2.1-6.9); NEUTROPHILS % 73.6 % (38.7-80.0); PLATELET COUNT 437 x10e3/uL (140-360); RED BLOOD COUNT 3.36 x10e6/uL (4.3-5.7); RED CELL DISTRIBUTION WIDTH 15.4 % (11.7-14.4)
--- NOTE | 2019-10-17 07:06 | NUR ---
REPORT GIVEN TO DAY NURSE. PATIENT IS RESTING IN BED. BED IS IN LOWEST POSITION AND CALL LIGHT IS WITHIN REACH
[2019-10-17] MEDS: INSULIN LISPRO 100 UNIT/1 ML 3ML VIAL SQ SCH ×2 (07:30)
[2019-10-17] MEDS: PANTOPRAZOLE SOD 40 MG TABEC PO SCH (08:18)
[2019-10-17] MEDS: ISOSORBIDE DINITRATE 20 MG TAB PO SCH (08:19)
[2019-10-17] MEDS: NIFEDIPINE CR 30 MG TAB PO SCH (08:19)
[2019-10-17 08:32] VITALS: BP 188/82
[2019-10-17 08:43] VITALS: BP 188/82
[2019-10-17] MEDS: GUAIFENESIN 600 MG TAB PO SCH (08:46)
[2019-10-17] MEDS: NEOMYCIN/POLYMYXIN/BACITRACIN 15 GM TUBE TOP SCH (08:46)
[2019-10-17] MEDS: SENNOSIDES 8.6 MG TAB PO SCH (08:46)
[2019-10-17] MEDS: BENZONATATE 100 MG CAP PO SCH (08:46)
[2019-10-17] MEDS: METOPROLOL SUCCINATE 50 MG TAB XL PO SCH (08:46)
[2019-10-17] MEDS: LORATADINE/PSEUDOEPHEDRINE 24 HR SR TAB PO SCH (08:46)
[2019-10-17] MEDS: FLUTICASONE PROPIONATE NASAL SPRAY NS SCH (08:47)
--- NOTE | 2019-10-17 11:50 | Discharge Summary ---
PRIMARY CARE PHYSICIAN: Dr. Esteban Thayer. SUPERVISOR [employer]SELING [employer]W: 1. Dr. Rocky Combs. 2. Dr. Dayne Parnell. 3. Dr. Jeffery. FINAL DIAGNOSES: 1. Incidental finding of several bilateral lung nodules measured up to 9 mm, could be inflammatory, infectious versus metastatic. Recommend for the patient to follow up in [address] scan of the chest. 2. Central bronchial wall thickening consistent with bronchiectasis/ bronchitis. 3. Small focal linear left upper lobe opacification consistent with most likely developing pneumonia. 4. Rhinosinusitis with scattered sinus mucosal thickening and sinus opacification. Bilateral reactive nasal turbinate hypertrophy and scattered nasal secretion with bilateral middle ear mastoid opacification. The patient was treated with antibiotics. 5. Anemia with positive for occult blood. The patient did receive iron infusion. The patient saw Gastroenterology, Dr. Jeffery, and will need followup as an outpatient for endoscopy. DISCHARGE MEDICATION: Doxycycline 1 mg twice a day for 7 days, Cipro 250 mg twice a day for 7 days, ProAir HFA 90 mcg 2 puffs q.4 hours as needed for shortness of breath. Tessalon Perles 100 mg q.4 hours p.r.n. for cough. Mucinex 300 mg 3 times a day for 15 days. Isosorbide dinitrate 10 mg twice a day. Claritin 10 mg daily. Singulair 10 mg at bedtime. Flonase nasal spray one spray each nostril twice a day. The patient will resume his home medication. IMAGING TESTS: MRCP and abdominal and pelvic CT scan was done. The finding in the MRCP was negative for any lesion in the pancreas. Had a left posterior bladder diverticular. Prostate enlargement and hypertrophy. FOLLOWUP INSTRUCTIONS: To follow up with Dr. Rocky Combs for the prostate and urinary bladder finding. Follow up with Dr. Jeffery gastroenterology for endoscopy. Follow up with Dr. Dayne Parnell for sinus management. Follow up with Dr. Esteban Thayer, primary care physician for repeated imaging test as requested. SUMMARY: The patient is a 74-year-old male has failed outpatient treatment for sinusitis. The patient came to the hospital with persistent sinus congestion, pain. He also developed some coughing and wheezing as well. The patient was treated. He was given multiple antibiotics and also supported treatment including nebulizer treatment and Claritin-D. His heart rate is elevated. Most likely will be due to treatment and also due to the pseudoephedrine. The patient is doing much better. He is breathing much better today. He is stable. The findings on his multiple imaging tests as mentioned above. The patient had an MRCP because of the abdominal and pelvic CT scan showed possible pancreatic lesion that was subsequently negative. Abdominal and pelvic CT scan was done finding as mentioned. The patient will need to follow up for possible workup with urologist, Dr. Rocky Combs. The finding on the abdominal and pelvic CT scan show a left posterior bladder diverticula and prostatomegaly and hypertrophy of the median lobe extending to the posterior aspect of the bladder. The patient also has a chest CT scan finding as mentioned above. He need to have a repeated CT scan in approximately 2 to 3 months to document resolution of possible infection versus metastasis. 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 We also tried to call the family and discussed with them as well. The patient is otherwise stable today. He will go home. I would like to add on Flomax 0.4 mg among other medication as mentioned above for his enlarged prostate. The patient is otherwise stable. He is eager to go home and I agreed. The patient is to follow up as instructed. The patient is stable and will be discharged home today. ACTIVITY: As tolerated. MEDICATIONS: Resume home medication. DIET: ADA diet. Follow up as instructed. MD YUNG Good/MARISELA /[id number] cc: Esteban Thayer
--- NOTE | 2019-10-17 11:51 | NUR ---
Patient discharged home, Alert with no distress, prescription given , discharge instruction given Dr Washington talked with his son, IV canula removed with tip intact, no ss of infiltration, transported via wheelchair to [facility]. son here to pick him
--- NOTE | 2019-10-17 13:25 | Consultation ---
DATE OF CONSULTATION: 10/17/2019 Urology Consultation REASON FOR CONSULTATION: Bladder diverticulum. HISTORY OF PRESENT ILLNESS: Narendra August is a patient who was admitted with increasing shortness of breath, cough and sinusitis. The patient also had atypical pneumonia. The patient was evaluated and found to have a significant sized bladder diverticulum as well as BPH and Urological consultation was sought. I came to the consultation and currently patient was just discharged minutes earlier. Information is obtained by review the patient's chart as well as electronic medical record as well as discussion with the patient's nurse. The patient has had TURP on August 02 by me. At that point in time, the patient had diffuse diverticula and the left ureter was actually incised this left-sided bladder diverticulum. Apparently when he was admitted, was found to have bilateral several lung nodules measure up to 9 mm and believed to be mostly infectious or inflammatory. He also had acute renal failure and Urological consultation was sought. Past medical history, past surgical history, social history, and family history, please refer to my office chart and prior medical records here. MEDICATIONS: Please refer to the MAR. ALLERGIES: PLEASE REFER TO THE MAR. REVIEW OF SYSTEMS: It is believed to be consistent with above history of present illness, past medical history, otherwise is believed to be negative for all systems. PHYSICAL EXAMINATION: According to the nurses, the patient was doing well on discharge today. Please review the physical and examination from the admitting physician in today's chart. LABORATORY STUDIES: CT scan of the abdomen and pelvis revealed a BPH that seems to be a TURP defect and there is a left-sided bladder diverticulum. [place] [address], hemoglobin 8.6, platelets 437,000. The patient was actually in acute renal failure when he was admitted with a creatinine of 2.28 and sodium was low at 130. By the time of discharge, the patient's creatinine was normal at 1.02. His sodium was normal at 142 with calcium was low at 8.2. ASSESSMENT: 1. Bladder diverticulum. 2. Acute renal failure, improved. 3. Hyponatremia, improved. 4. Hypocalcemia. PLAN: 1. I defer the hematological and electrolyte abnormalities to the admitting physician. 2. The patient needs ongoing urologic followup. 3. The patient needs to follow up on a long-term basis. 4. I defer the pulmonary problems. Thank you much for involving us in care of the patient. We will be happy to follow him as an outpatient. Rocky Combs MD OH/MODL /[id number] cc: Rocky Combs MD
== END 2019-10-17 11:48 | disposition home or self-care (01) | DRG 152 ==
LOC: ER 11:58 → ERHOLD 13:22 → MED/SURG3 15:09 → OBSVTOIN 10-13 10:23
PROVIDERS: ADMIT Internal Medicine; ATTEND Internal Medicine
DX: J01.40 Acute pansinusitis, unspecified (principal); J18.9 Pneumonia, unspecified organism; N17.9 Acute kidney failure, unspecified; E87.1 Hypo-osmolality and hyponatremia; N40.0 Benign prostatic hyperplasia without lower urinary tract symptoms; E11.9 Type 2 diabetes mellitus without complications; I10 Essential (primary) hypertension; Z79.4 Long term (current) use of insulin; E78.5 Hyperlipidemia, unspecified; E86.0 Dehydration; Z88.0 Allergy status to penicillin; J30.9 Allergic rhinitis, unspecified; J34.3 Hypertrophy of nasal turbinates; J34.2 Deviated nasal septum; H66.93 Otitis media, unspecified, bilateral; R91.8 Other nonspecific abnormal finding of lung field; D64.9 Anemia, unspecified; N32.3 Diverticulum of bladder; E83.51 Hypocalcemia
CPT/HCPCS: 36415; 70486; 71250; 74177; 74183; 80048; 80053; 82270; 82607; 82728; 82746; 82948; 83540; 83605; 84443; 84466; 85025; 87040; 93005; 93306; 94640; 99284; G0378; J1756; J1815; J2920; J3010; J7030; J7050; Q9967; U0002

== ENCOUNTER → 2019-11-09 | Outpatient (CLI) | payer MEDICARE, OTHER ==
[~2019-11-09] MED LIST changes: +ATORVASTATIN CA40 MG PO; +GADOBENATE DIMEGLUMINE 1 ML IV ONE; +LOSARTAN-HCTZ1 EAC1 PO; +METOPROLOL SUCC25 MG PO; +NIFEDIPINE ER30 M1 PO; +SODIUM CHLORIDE 0.9% 50ML 50 ML ONE
== END ==
LOC: MRI 08:10
PROVIDERS: ATTEND Internal Medicine Gastroenterology
DX: D50.0 Iron deficiency anemia secondary to blood loss (chronic) (principal); R19.5 Other fecal abnormalities; K86.9 Disease of pancreas, unspecified; R93.89 Abnormal findings on diagnostic imaging of other specified body structures
CPT/HCPCS: 74183; A9577